=== PATIENT | female | born 2005 | race Caucasian/White ===

== ENCOUNTER 2024-11-04 00:52 | Emergency (ER) | payer OTHER, SELFPAY ==
--- NOTE | 2024-11-04 | ECG_ITS ---
Test Reason : CHEST TIGHTNESS Blood Pressure : */* mmHG Vent. Rate : 84 BPM Atrial Rate : 84 BPM P-R Int : 138 ms QRS Dur : 74 ms QT Int : 354 ms P-R-T Axes : 50 48 36 degrees QTcB Int : 418 ms Normal sinus rhythm Normal ECG No previous ECGs available Referred By: Generic ED Physician Electronically Signed By: Michael Logan
[2024-11-04 00:57] VITALS: BP 130/85; PULSE 100; O2SAT 98
[2024-11-04 01:00] VITALS: BP 127/82; PULSE 87; RESP 21; TEMP 36.7; O2SAT 100; BMI 27.3
[2024-11-04 01:04] VITALS: BP 127/82; PULSE 87; RESP 21; TEMP 36.7; O2SAT 100
--- OUTSIDE RECORDS SUMMARY | 2024-11-04 01:50 | XMS_ITS | Encounter Summary ---
Author Organization [facility] Address [address] [place] [address] Care Team Providers Care Hide Handler Name Role Phone Liya Oreilly MD Primary Care Provider [phone] [phone] Encounter Details Date Type Department Care Team (Late st Contact Info) Description 12/06/2020 Lab Requisition [facility] [address] [place] [address] Jenae Boucher MD [address] [place] [phone] Contact with and (suspected) exposure to other viral communicable diseases Social History Tobacco Use Types Packs/Day Years Used Date Smoking Tobacco: Never Assessed Comments Unknown Sex and Gender Information Value Date Recorded Sex Assigned at Not on file Legal Sex Female 9:35 PM EDT Gender Identity Female 08/03/2023 10:26 AM EST Sexual Orientation Bisexual 08/03/2023 10 :26 AM EST documented as of this encounter Plan of Treatment Upcoming Encounters Date Type Department Care Team (Late st Contact Info) Description 02/23/2025 9:45 AM EDT Office Visit [facility] [place] [address] [place] [address] Liya Oreilly MD [address] [facility] [address] [place] [address] documented as of this encounter Procedures Procedure Name Priority Date/Time Associated Diagnosis Comments SARS COV-2 (COVID-19) RNA-[facility] ([facility]) Routine 12/06/2020 8:55 PM EDT Contact with and (suspected) exposure to other viral communicable diseases documented in this encounter Results * SARS CoV-2 (COVID-19) [facility] ([facility]) (12/06/2020 8:55 PM EDT) SARS-CoV-2 RNA (COVID-19) Negative Negative 12/07/2020 2:20 AM EDT [facility] Comment: This assay is a Nucleic Acid Amplification Test (NAAT)/RT-PCR or TMA ([employer] System). This is run on the [employer] system. It has been validated for clinical use by the Laboratory (CLIA #: [id number]). It has been granted Emergency Use Authorization by the US FDA. Note that falsely negative results can be due to poor sample quality, suboptimal sample type, low viral load, and viral genome variability. Patient Information: https://www.fda.gov/media/725364/download Provider Information: https://www.fda.gov/media/256450/download Test performance has not been evaluated in asymptomatic patients. Test ordering and result interpretation is at the discretion of the ordering provider. Viral NASOPHARYNGEAL STRUCTURE / Unknown 12/06/2020 8:55 PM EDT 12/06/2020 9:21 PM EDT Jenae Boucher MD MICROBIOLOGY - GENERAL ORDERABL ES Final Result [facility] [address] [place] [address] documented in this encounter Visit Diagnoses Diagnosis Contact with and (suspected) exposure to other viral communicable diseases documented in this encounter Additional Health Concerns Infection Onset Date Last Indicated Resolved Time R/O COVID-19 12/06/2020 12/06/2020 12/07/2020 2:20 AM EDT R/O COVID-19 03/30/2021 03/30/2021 03/31/2021 1:47 AM EDT documented as of this encounter Care Teams Hide Handler Relationship Specialty Start Date End Date Liya Oreilly MD [address] [phone] PCP - General Internal Medicine 06/20/23 documented as of this encounter
--- OUTSIDE RECORDS SUMMARY | 2024-11-04 01:50 | XMS_ITS ---
Author Name [facility] Organization Unknown Results Test Name/Text Value Interpretation Date Range Source CRP SerPl HS-mCnc 0.7mg/dL Normal [id number] 0 - 1 [facility] ESR Bld Qn 16mm/hr Normal [id number] 0 - 20 [facility] T HLA-B27 Ql FC Negative Normal [id number] - [facility] 25(OH)D2+25(OH)D3 SerPl-mCnc 25ng/mL Normal [id number] 20 - 50 [facility] Vit B12 SerPl-mCnc 264pg/mL Normal [id number] 211 - 91 1 [facility] CRP SerPl HS-mCnc 1.1mg/dL Above high normal [id number] 0 - 1 [facility] CK SerPl-cCnc 46U/L Normal [id number] 20 - 215 [facility] ESR Bld Qn 14mm/hr Normal [id number] 0 - 20 [facility] T MARTHA Titr Ser IF Negative Normal [id number] - [facility] cCP Ab Ser IA-aCnc 3 Normal [id number] - [facility] B burgdor.VlsE1+pepC1 0 IgG+IgM Ser Ql IA Negative Normal [id number] - [facility] B burgdor.VlsE1+pepC1 0 Ab Ser IA-aCnc 0.19LI Normal [id number] - [facility] AST/ALT SerPl-cRto 1.1 Normal [id number] - [facility] Glucose SerPl-mCnc 86mg/dL Normal [id number] 70 - 100 [facility] AST SerPl w P-5'-P-cCnc 19U/L Normal [id number] 5 - 37 [facility] Calcium SerPl-mCnc 8.8mg/dL Below low normal [id number] 9 .1 - 10.3 [facility] ALT SerPl w/o P-5'-P-cCnc 18U/L Normal 12 - 78 [facility] Sodium SerPl-sCnc 140mmol/L Normal 136 - 145 [facility] BUN SerPl-mCnc 10mg/dL Normal 8 - 25 [facility] ALP SerPl-cCnc 94U/L Normal 50 - 335 [facility] Globulin Plas-mCnc 3.4g/dL Normal [id number] [facility] HCO3 SerPl-sCnc 24mmol/L Normal 21 - 32 [facility] Creat SerPl-mCnc 0.72mg/dL Normal 0.5 - 1.3 [facility] Anion Gap3 SerPl-sCnc 9 Normal 5 - 18 [facility] BUN/Creat SerPl 13.9 Normal 8 - 25 [facility] Albumin SerPl BCG-mCnc 3.8g/dL Normal 3.4 - 5 [facility] Osmolality SerPl Calc 278mOsm/kg Normal 275 - 295 [facility] Bilirub SerPl-mCnc 0.5mg/dL Normal 0 - 1 [facility] Chloride SerPl-sCnc 107mmol/L Normal 95 - 11 5 [facility] Albumin/Glob SerPl 1.1 Normal [facility] Potassium SerPl-sCnc 3.7mmol/L Normal 3.5 - 5.1 [facility] GFR/BSA.pred SerPlBld XWQ-VAS-JsBWxv 60mL/min/1.73m2 Normal [id number] - [facility] Prot SerPl-mCnc 7.2g/dL Normal [id number] 6.4 - 8.2 [facility] CRP SerPl HS-mCnc 7.8mg/dL Above high normal 0 - 1 [facility] TSH SerPl DL<=0.005 mIU/L-aCnc 0.875uIU/mL Normal 0.358 - 3.74 [facility] Rheumatoid fact Ser Neph-aCnc 10IU/mL Normal [id number] 0 - 14 [facility] ESR Bld Qn 14mm/hr Normal [id number] 0 - 20 [facility] T MCV RBC Auto 87.1fL Normal 80 - 100 [facility] Lymphocytes # Bld Auto 1.67i7482/uL Normal 0.6 - 3.7 [facility] WBC # Bld Auto 10.4g5238/uL Normal 4 - 11 [facility] Monocytes/leuk NFr Bld Auto 6.2% Normal 4 - 12 [facility] Imm Granulocytes/leuk NFr Bld Auto 0.2% Normal 0 - 1 [facility] nRBC # Bld Auto 4s1104/uL Normal 0 - 1 [facility] Platelet # Bld Auto 473b6931/uL Normal 150 - 420 [facility] PMV Bld Auto 9.8fL Normal 8 - 12 [facility] MCH RBC Qn Auto 28.1pg Normal [id number] 27 - 33 [facility] Eosinophil # Bld Auto 0.97a6342/uL Normal 0 - 1 [facility] Neutrophils/leuk NFr Bld Auto 76.2% Above high normal 39 - 72 [facility] Imm Granulocytes # Bld Auto 0.82t8551/uL Normal [id number] 0 - 0.3 [facility] RBC # Bld Auto 4.88M/uL Normal 4 - 6 [facility] Monocytes # Bld Auto 0.97o2541/uL Normal [id number] 0 - 1 [facility] RDW RBC Auto-Rto 12.9% Normal [id number] 11 - 15 [facility] Lymphocytes/leuk NFr Bld Auto 15.1% Below low normal 17 - 50 [facility] Eosinophil/leuk NFr Bld Auto 1.9% Normal 0 - 5 [facility] nRBC/100 WBC Bld Auto-Rto 0% Normal 0 - 1 [facility] Neutrophils # Bld Auto 7.89a1618/uL Above high normal 2 - 7.6 [facility] Hct VFr Bld Auto 42.5% Normal 35 - 45 [facility] BKR WAM BASOPHIL ABSOLUTE COUNT. 0.71o6461/uL Normal 0 - 1 [facility] Hgb Bld-mCnc 13.7g/dL Normal 11.7 - 15.5 [facility] MCHC RBC Auto-mCnc 32.2g/dL Normal 31 - 36 [facility] Basophils/leuk NFr Bld Auto 0.4% Normal 0 - 1.4 [facility] Encounters Encounter Type Encounter Reason Primary Diagnosis Location Date Emergency Abdominal Pain [facility] Care Team Organization Name Specialty Phone Email Start Date End Da te [facility]- Other [facility] 10/08/2024 [facility]- Other [facility] 03/09/2024 [facility] ([facility] 07/30/2021
--- OUTSIDE RECORDS SUMMARY | 2024-11-04 01:50 | XMS_ITS | Encounter Summary ---
Author Organization [facility] and [facility] Address [address] [place] [address] Care Team Providers Care [employer] Science Teacher Name Role Phone Liya Oreilly MD Primary Care Provider [phone] Encounter Details Date Type Department Care Team (Late st Contact Info) Description 04/28/2016 Lab Requisition [facility] [address] [place] [address] Jenae Boucher MD [address] [place] [phone] Acute pharyngitis; Other fatigue; Cough Social History Tobacco Use Types Packs/Day Years [...] AM EDT Office Visit [facility] [place] [address] [place] [address] Liya Oreilly MD [address] [facility] [address] [place] [phone] documented as of this encounter Procedures Procedure Name Priority Date/Time Associated Diagnosis Comments COMPREHENSIVE METABOLIC PANEL Routine 04/28/2016 3:30 PM EDT Acute pharyngitis Other fatigue Cough ZZZEPSTEIN-MORSE HETEROPHILE IGM (GH) Routine 04/28/2016 3:30 PM EDT Acute pharyngitis Other fatigue Cough ZZZEBV PANEL (GH) Routine 04/28/2016 3:3 0 PM EDT Acute pharyngitis Other fatigue Cough HETEROPHILE ANTIBODY (MONOSPOT) (BH GH L LMW Y[facility]) Routine 04/28/2016 3:30 PM EDT Acute pharyngitis Other fatigue Cough CBC WITH AUTO DIFFERENTIAL Routine 04/28/2016 3:30 PM EDT Acute pharyngitis Other fatigue Cough ZZZEPSTEIN-MORSE VIRUS NUCLEAR ANTIGEN ANTIBODY, IGG (GH L) Routine 04/28/2016 3:30 PM EDT Acute pharyngitis Other fatigue Cough MALU-MORSE VIRUS EARLY ANTIGEN ANTIBODY, IGG (GH L LMW Q) Routine 04/28/2016 3:30 PM EDT Acute pharyngitis Other fatigue Cough ZZZEPSTEIN-MORSE VIRUS VCA, IGM (GH L Q) Routine 04/28/2016 3:30 PM EDT Acute pharyngitis Other fatigue Cough ZZZEPSTEIN-MORSE VIRUS VCA, IGG (GH L Q) Routine 04/28/2016 3:30 PM EDT Acute pharyngitis Other fatigue Cough CBC AND DIFFERENTIAL Routine 04/28/2016 3:30 PM EDT Acute pharyngitis Other fatigue Cough COMPREHENSIVE METABOLIC PANEL Routine 04/28/2016 3:30 PM EDT Acute pharyngitis Other fatigue Cough THROAT CULTURE (Q) Routine 04/28/2016 2: 00 PM EDT Acute pharyngitis Other fatigue Cough documented in this encounter Results * Malu-Morse heterophile IgM (GH) (04/28/2016 3:30 PM EDT) Heterophile IgM Units 0.7 <0.8 AI 05/01/2016 1:16 PM EDT [facility] Heterophile IgM Negative Negative 6 1:16 PM EDT [facility] Blood specimen (specimen) 04/28/2016 3:30 PM EDT 04/28/2016 4:41 PM EDT [facility] - 05/01/2016 1:16 PM EDT EBV Interpretation: Less than or Equal 0.8...........NEGATIVE 0.9 - 1.0........................EQUIVOCAL Greater or Equal 1.1.............POSITIVE us Jenae Boucher MD LAB BLOOD ORDERABLES Final Resu lt [address] [address], [facility] [phone] * Malu-Morse virus early antigen antibody, IgG (GH L Q) (04/28/2016 3:30 PM EDT) EBV Early Ag Ab Units 0.6 <0.8 AI AI 05/01/2016 2:43 PM EDT [facility] EBV Early Antigen Antibody, IgG Negative Negative 05/01/2016 2:43 PM EDT [facility] Blood specimen (specimen) 04/28/2016 3:30 PM EDT 04/28/2016 4:41 PM EDT [facility] - 05/01/2016 2:43 PM EDT EBV Interpretation: Less than or Equal 0.8...........NEGATIVE 0.9 - 1.0........................EQUIVOCAL Greater or Equal 1.1.............POSITIVE Jenae Boucher MD LAB BLOOD ORDERABLES Final Resu lt Performing Organization Address [facility] Co de Phone Number [address] [address] [phone] * Malu-Morse virus nuclear antigen antibody, IgG (GH L) (04/28/2016 3:30 PM EDT) [facility] EBV Nuclear Ag Ab Units <0.2 <0.8 AI AI 05/01/2016 2:43 PM EDT [facility] EBV Nuclear Antigen Antibody Negative Negative 05/01/2016 2:43 PM EDT [facility] Blood specimen (specimen) 04/28/2016 3:30 PM EDT 04/28/2016 4:41 PM EDT [facility] - 05/01/2016 2:43 PM EDT EBV Interpretation: Less than or Equal 0.8...........NEGATIVE 0.9 - 1.0........................EQUIVOCAL Greater or Equal 1.1.............POSITIVE Jenae Boucher MD LAB BLOOD ORDERABLES Final Resu lt Performing Organization Address [facility] Co de Phone Number [address] [address] [phone] * (ABNORMAL) Malu-Morse virus VCA, IgM (GH L Q) (04/28/2016 3:30 PM EDT) Pathologist [facility] EBV VCA IgM Positive( A) Negative AI 05/01/2016 1:16 PM EDT [facility] EBV VCA IgM Units 1.4(H) <0.8 AI AI 05/01/2016 1:16 PM EDT [facility] Blood specimen (specimen) 04/28/2016 3:30 PM EDT 04/28/2016 4:41 PM EDT us Jenae Boucher MD LAB BLOOD ORDERABLES Final Resu lt Performing Organization Address [facility] de Phone Number [address] [address], [facility] [phone] * Malu-Morse virus VCA, IgG (GH L Q) (04/28/2016 3:30 PM EDT) EBV VCA IgG Units 0.3 <0.8 AI AI 05/01/2016 2:43 PM EDT [facility] EBV VCA IgG Negative Negative 05/01/2016 2:43 PM EDT [facility] Blood specimen (specimen) 04/28/2016 3:30 PM EDT 04/28/2016 4:41 PM EDT Narrative [facility] - 05/01/2016 2:43 PM EDT EBV Interpretation: Less than or Equal 0.8...........NEGATIVE 0.9 - 1.0........................EQUIVOCAL Greater or Equal 1.1.............POSITIVE us Jenae Boucher MD LAB BLOOD ORDERABLES Final Resu lt Performing Organization Address [facility] de Phone Number [facility] [address] [place] [address], [facility] [phone] * (ABNORMAL) CBC auto differential (04/28/2016 3:30 PM EDT) WBC 7.4 4.5 - 13.5 x1000/uL 04/28/2016 6:08 PM EDT [facility] RBC 4.82 3.90 - 5.03 M/uL 04/28/2016 6:08 PM EDT [facility] Hemoglobin 13.0 10.6 - 13.4 g/dL 04/28/2016 6:08 [address] [facility] Hematocrit 39.3 32.2 - 39.8 % 04/28/2016 6:08 PM [facility] MCV 81.5 74.4 - 87.6 fL 04/28/2016 6:08 PM [facility] MCH 27.0 24.8 - 29.5 pg 04/28/2016 6:08 PM [facility] MCHC 33.1 31.8 - 34.9 g/dL 04/28/2016 6:08 PM [facility] RDW-CV 13.1 12.2 - 14.4 % 04/28/2016 6:08 PM [facility] Platelets 324 199 - 369 x 1000/uL 04/28/2016 6:08 PM [facility] MPV 9.1(L) 9.2 - 11.4 fL 04/28/2016 6:08 PM [facility] Neutrophils 47.1 39.5 - 76.9 % 04/28/2016 6:08 PM [facility] Lymphocytes 42.6 13.1 - 45.2 % 04/28/2016 6:08 PM [facility] Monocytes 4.0 3.3 - 13.4 % 04/28/2016 6:08 PM [facility] Eosinophils 5.5(H) 0.0 - 4.8 % 04/28/2016 6:08 PM [facility] Basophils 0.5 0.0 - 1.0 % 04/28/2016 6:08 PM [facility] Immature Granulocytes 0.3 0 - 2 % 04/28/2016 6:08 PM [facility] ANC (Abs Neutrophil Count) 3.48 2.58 - 6.34 x 1000/uL 04/28/2016 6:08 PM [facility] nRBC 0.0 0.0 - 0.2 /100 WBC 04/28/2016 6:08 PM [facility] Blood specimen (specimen) Venipuncture / Unknown 04/28/2016 3:30 PM EDT 04/28/2016 4:41 PM EDT us Jenae Boucher MD LAB BLOOD ORDERABLES Final Resu lt [facility] [address] [place] [address], [facility] [phone] * (ABNORMAL) Comprehensive metabolic panel (04/28/2016 3:30 PM EDT) Sodium 140 136 - 145 mmol/L 04/28/2016 5:13 PM [facility] Potassium 3.8 3.5 - 5.1 mmol/L 04/28/2016 5:13 PM [facility] Chloride 106 95 - 115 mmol/L 04/28/2016 5:13 PM [facility] CO2 24 21 - 32 mmol/L 04/28/2016 5:13 PM [facility] Anion Gap 10 5 - 18 04/28/2016 5:13 PM [facility] Glucose 89 70 - 100 mg/dL 04/28/2016 5:13 PM [facility] BUN 15 8 - 25 mg/dL 04/28/2016 5:13 PM [facility] Creatinine 0.47(L) 0.50 - 1.30 mg/dL 04/28/2016 5:13 PM [facility] Calcium 9.6 8.4 - 10.3 mg/dL 04/28/2016 5:13 PM [facility] BUN/Creatinine Ratio 31.9(H) 8.0 - 25.0 04/28/2016 5:13 PM [facility] Total Protein 6.7 6.4 - 8.2 g/dL 04/28/2016 5:13 PM [facility] Albumin 3.8 3.4 - 5.0 g/dL 04/28/2016 5:13 PM [facility] Total Bilirubin 0.2 0.0 - 1.0 mg/dL 04/28/2016 5:13 PM [facility] Alkaline Phosphatase 227 50 - 335 U/L 04/28/2016 5:13 PM [facility] Alanine Aminotransferase (ALT) 34 12 - 78 U/L 04/28/2016 5:13 PM [facility] Aspartate Aminotransferase (AST) 19 5 - 37 U/L 04/28/2016 5:13 PM EDT [facility] Globulin 2.9 g/dL 04/28/2016 5:13 PM EDT [facility] A/G Ratio 1.3 04/28/2016 5:13 PM EDT [facility] AST/ALT Ratio 0.6 04/28/2016 5:13 PM EDT [facility] Osmolality Calculation 280 275 - 295 mOsm/kg 04/28/2016 5:13 PM EDT [facility] Blood specimen (specimen) 04/28/2016 3:30 PM EDT 04/28/2016 4:41 PM EDT us Jenae Boucher MD LAB BLOOD ORDERABLES Final Resu lt Performing Organization Address City/[facility]/ZIP Co de Phone Number [facility] [address] [place] [phone], [facility] [phone] * (ABNORMAL) Heterophile antibody (monospot) ([facility] L LMW YH) (04/28/2016 3:30 PM EDT) EBV Heterophile Antibodies (Placer Test) Positive( A) Negative 04/28/2016 6:26 PM EDT [facility] Blood specimen (specimen) 04/28/2016 3:30 PM EDT 04/28/2016 4:41 PM EDT us Jenae Boucher MD LAB BLOOD ORDERABLES Final Resu lt [facility] [address] [place] [phone], [facility] [phone] * Throat culture ([facility] Q YH) (04/28/2016 2:00 PM EDT) Throat Culture No Beta Hemolytic Streptococcus Gp A 04/30/2016 7:33 AM EDT [facility] Specimen from throat (specimen) SPECIMEN FROM THROAT / Unknown 04/28/2016 2:00 PM EDT 04/28/2016 4:39 PM EDT Result Hugh Boucher MD MICROBIOLOGY - GENERAL ORDERABL ES Final Result [facility] [address] [place] [address], [facility] [phone] documented in this encounter Visit Diagnoses Diagnosis Acute pharyngitis Other fatigue Cough documented in this encounter Additional Health Concerns Infection Onset Date Last Indicated Resolved Time R/O COVID-19 08/19/2020 08/19/2020 08/21/2020 10:5 8 PM EST R/O COVID-19 10/21/2020 10/21/2020 10/22/2020 12:2 8 AM EDT R/O COVID-19 11/29/2020 11/29/2020 11/30/2020 3:49 AM EDT R/O COVID-19 12/01/2020 12/01/2020 12/01/2020 11:4 7 PM EDT R/O COVID-19 12/06/2020 12/06/2020 12/07/2020 2:20 AM EDT R/O COVID-19 03/30/2021 03/30/2021 03/31/2021 1:47 AM EDT documented as of this encounter Care Teams [employer] Science Teacher Relationship Specialty Start Date End Date Liya Oreilly MD [address] [facility] [address] [place] [address] PCP - General Internal Medicine 06/20/23 documented as of this encounter
--- OUTSIDE RECORDS SUMMARY | 2024-11-04 01:50 | XMS_ITS | Encounter Summary ---
Author Organization [facility] and [facility] Address [address] [place] [address] Care Team Providers Care [employer] Dealer Name Role Phone Liya Oreilly MD Primary Care Provider [phone] Encounter Details Date Type Department Care Team (Late st Contact Info) Description 11/29/2020 Lab Requisition [facility] [address] [place] [address] Rajesh Hicks MD [address] [address] Contact with and (suspected) exposure to other [...] Description 02/23/2025 9:45 AM EDT Office Visit [facility] [place] [address] [place] [address] Liya Cedillo MD [address] [place] [address] [place] [address] documented as of this encounter Procedures Procedure Name Priority Date/Time Associated Diagnosis Comments SARS COV-2 (COVID-19) RNA-[facility] ([facility] Y) Routine 11/29/2020 9:32 PM EDT Contact with and (suspected) exposure to other viral communicable diseases documented in this encounter Results * SARS CoV-2 (COVID-19) [facility] ([facility] LMW Y) (11/29/2020 9:32 PM EDT) SARS-CoV-2 RNA (COVID-19) Negative Negative 11/30/2020 3:49 AM EDT [facility] Comment: This assay is a Nucleic Acid Amplification Test (NAAT)/RT-PCR or TMA ([employer] System). This is run on the [employer] system. It has been validated for clinical use by the [facility] (CLIA #: [id number]). It has been granted Emergency Use Authorization by the [place] FDA. Note that falsely negative results can be due to poor sample quality, suboptimal sample type, low viral load, and viral genome variability. Patient Information: https://www.fda.gov/media/162177/download Provider Information: https://www.fda.gov/media/156653/download Test performance has not been evaluated in asymptomatic patients. Test ordering and result interpretation is at the discretion of the ordering provider. Viral NASOPHARYNGEAL STRUCTURE / Unknown 11/29/2020 9:32 PM EDT 11/29/2020 9:56 PM EDT us Rajesh Hicks MD MICROBIOLOGY - GENERAL ORDERA BLES Final Result [facility] [address] [place] [address] documented in this encounter Visit Diagnoses Diagnosis Contact with and (suspected) exposure to other viral communicable diseases documented in this encounter Additional Health Concerns Infection Onset Date Last Indicated Resolved Time R/O COVID-19 11/29/2020 11/29/2020 11/30/2020 3:49 AM EDT R/O COVID-19 12/01/2020 12/01/2020 12/01/2020 11:4 7 PM EDT R/O COVID-19 12/06/2020 12/06/2020 12/07/2020 2:20 AM EDT R/O COVID-19 03/30/2021 03/30/2021 03/31/2021 1:47 AM EDT documented as of this encounter Care Teams [employer] Dealer Relationship Specialty Start Date End Date Liya Oreilly MD [address] [address] PCP - General Internal Medicine 06/20/23 documented as of this encounter
--- OUTSIDE RECORDS SUMMARY | 2024-11-04 01:50 | XMS_ITS | Data Portability ---
Author Organization [facility], [facility] Address [address] [place] [id number] Assessment Encounter Date Assessment Date Assessment LastModified by Organization Details LastModified Time 03/19/2024 03/19/2024 Well-woman visit with gynecologic examination. Pap/HPV recommendations discussed. Shared decision making on the subject of cervical cancer screening. Pap not sent. Not available 03/19/2024 14:16:15 06/25/2024 06/25/2024 WBC- 9.54 - discussed with pt. Site marked with skin marker. Tx plan discussed. pt verbalizes understanding and agrees with plan ncondro Not available 06/25/2024 12:33:40 Plan of Treatment Reminders Order Date Submit Date Provider Last Modified By Organization Details Last Modified Time Details Appointments None recorded. Lab CBC w/ auto diff [facility], [address] [place] [address], [address], 12:21:50 Referral None recorded. Procedures None recorded. Surgeries None recorded. Imaging None recorded. Medication Orders Bactrim DS 800 mg-[address] [facility] #[id number], [address] [facility] [address], [place], [address], 12:23:24 Earnestine Fe 08/18 (28) 1 mg-20 mcg (21)/75 mg (7) tablet [facility] #[id number], [address] [facility], [place], [address], 4 14:16:51 Earnestine Fe 08/18 (28) 1 mg-20 mcg (21)/75 mg (7) tablet [facility], [address] [place] [address], [address], 14:29:16 Patient TargetsNo targets recorded. Patient Instructions Encounter Date Encounter Id Patient Instructions Last Modified By Organization Details Last Modified Time 07/28/2022 [id number] Various methods of control discussed. Plan for : Not available 07/28/2022 13:13:53 Hormonal : *Work s by constantly providing a significant amount of progesterone to one's bloodstream -this tricks the brain into thinking that one is , thereby turning off the ovaries and preventing ovulation. The period on the pill or nuvaring is a fake manipulated bleed that one has on the placebo period. - progesterone only methods have significantly less risk of blood clotting in the veins but sometimes less bleeding control - the pill (many different brands, progesterone only available) - nuvaring (vaginal ring in the vagina for 3 weeks, 1 week without) - depo provera injections every 3 months (this is progesterone only, not easily reversible, requires nurses visit every 3 months for injection) - nexplanon implant every 3 years (progesterone only, easily reversible but requires insertion and removal procedures that carry small risks of migration, infection, bruising, sometimes not easy to remove) IUD : *The IUD works mainly by killing sperm. One continues to ovulate. - The kind that has progesterone coated on it lessens the flow and duration of natural periods. Types are Mirena, kyleena, rhea, and liletta. They do NOT release the progesterone into the bloodstream. However there is a small percentage of women in whom the progesterone may leak a little into the bloodstream and give them side effects such as bloating, weight gain, acne, mood changes,.... - The kind with zero hormone on it, Paragard, can make periods heavier, but carries no additional hormone side effects at all Barrier: - condoms, protect against sexually transmitted infections - diaphragm, a little better than using nothing, condoms preferred, do NOT protect against sexually transmitted infections Other: -spermicide, VCF, not reliable methods of contraception, virtually no protection Permanent: -tubal ligation/coagulati on (cutting/burning fallopian tubes), bilateral salpingectomies, (removing fallopian tubes) -vasectomy Various methods of control discussed. 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 Please be advised that test results may be available to you before they are available for review by your provider. Office notes and patient care summaries will also be available to you. If you have any questions regarding any notes or results please call the office or reach out to your provider via the portal. Not available 03/19/2024 07:24:14 Monthly self breast exam is encouraged. Condom use is encouraged. control preference noted if applicable. Not available 03/19/2024 07:24:14 06/25/2024 [id number] rest leg apply warm compresses 20 minutes at a time every few hours. Take antibiotic as prescribed - take with food. take probiotics ( culturelle) while taking antibiotics. Do not take probiotic within 2-3 hours of the antibiotic. Take Tylenol as needed for pain. To ER if increased redness or fever develops pt verbalizes understanding and agrees with plan ncondro Not available 06/25/2024 12:24:36 Reason for Referral None Reported. Results Created Date Observation Date Name Description Value Unit Range Abnormal Flag Note LastModifiedBy Organization Detail LastModifiedTime 06/25/20 24 06/25/2024 CBC-S white blood cells 9.54 10^3/ uL 3.50 - 10.60 normal Not Available [facility] [address] [place], [address], 06/25/2024 12:21:49 06/25/2006/25/2024 CBC-S red blood cells 4.74 10^6/ uL 3.87 - 5.15 normal Not Available [facility] [address] [place] [address], [address], 06/25/2024 12:21:49 06/25/2006/25/2024 CBC-S hemoglobin 13.7 g/dL 11.1 - 15.0 normal Not Available [facility] [address] [place] [address], [address], 06/25/2024 12:21:49 06/25/2006/25/2024 CBC-S hematocrit 41.3 % 34.1 - 44.7 normal Not Available [facility] [address] [place] [address], [address], 06/25/2024 12:21:49 06/25/2006/25/2024 CBC-S MCH 28.9 pg 23.5 - 32.8 normal Not Available [facility] [address] [place] [address], [address], 06/25/2024 12:21:49 06/25/2006/25/2024 CBC-S MCHC 33.2 g/dL 31.4 - 35.2 normal Not Available [facility] [address] [place] [address], [address], 06/25/2024 12:21:49 06/25/2006/25/2024 CBC-S MCV 87.1 fL 76.0 - 98.0 normal Not Available [facility] [address] [place] [address], [address], 06/25/2024 12:21:49 06/25/20 24 06/25/2024 CBC-S RDW-CV 12.6 % 12.1 - 15.9 normal Not Available [facility] [address] [place], [address], 06/25/2024 12:21:49 06/25/2006/25/2024 CBC-S RDW-SD 41.5 fL 36.8 - 55.7 normal Not Available [facility] [address] [place] [address], [address], 06/25/2024 12:21:49 06/25/2006/25/2024 CBC-S platelet count 280 10^3/ uL 140 - 400 normal Not Available [facility] [address] [place] [address], [address], 06/25/2024 12:21:49 06/25/2006/25/2024 CBC-S MPV 9.1 fL 8.9 - 12.5 normal Not Available [facility] [address] [place] [address], [address], 06/25/2024 12:21:49 06/25/2006/25/2024 CBC-S neutro-segs % 71.2 % not estab. normal Not Available [facility] [address] [place] [address], [address], 06/25/2024 12:21:49 06/25/2006/25/2024 CBC-S lymphocytes % 21.2 % not estab. normal Not Available [facility] [address] [place] [address], [address], 06/25/2024 12:21:49 06/25/2006/25/2024 CBC-S monocytes % 5.1 % not estab. normal Not Available [facility] [address] [place] [address], [address], 06/25/2024 12:21:49 06/25/20 24 06/25/2024 CBC-S eosinophils % 2.2 % not estab. normal Not Available [facility] [address] [place] [address], [address], 06/25/2024 12:21:49 06/25/2006/25/2024 CBC-S basophils % 0.2 % not estab. normal Not Available [facility] [address] [place] [address], [address], 06/25/2024 12:21:49 06/25/2006/25/2024 CBC-S neutrophil, absolute 6.8 10^3/ uL 1.7 - 6.4 high Not Available [facility] [address] [place] [address], [address], 06/25/2024 12:21:49 06/25/2006/25/2024 CBC-S lymphocytes, absolute 2.0 10^3/ uL 0.9 - 3.2 normal Not Available [facility] [address] [place] [address], [address], 06/25/2024 12:21:49 06/25/2006/25/2024 CBC-S monocytes, absolute 0.5 10^3/ uL 0.3 - 0.9 normal Not Available [facility] [address] [place] [address], [address], 06/25/2024 12:21:49 06/25/2006/25/2024 CBC-S eosinophils, absolute 0.2 10^3/ uL 0.0 - 0.6 normal Not Available [facility] [address] [place] [address], [address], 06/25/2024 12:21:49 06/25/2006/25/2024 CBC-S basophils, absolute 0.0 10^3/ uL 0.0 - 0.1 normal Not Available [facility] [address] [place] [address], [address], 06/25/2024 12:21:49 Result Notes None recorded. Problems Name Problem SNOMED Code Status Onset Date Resolution Date Notes Provider Name and Address Organization Details Recorded Time Dysmenorrhea 621931577 Active 2020 Descri ption: DYSMEN ORRHEA , UNSPEC IFIED; Stop Date: [address] [facility] 12:48:36 Problem Notes None recorded. Medical Equipment None Reported. Allergies No known drug allergies Medications Name Sig Start Date Stop Date Status Note LastModified by Organization Details LastModified Time ibuprofen 800 mg tablet TAKE 1 TAB BY MOUTH EVERY 8 HOURS NEEDED FOR PAIN 03/19 completed Not Available Not Available Not Available meloxicam 15 mg tablet TAKE 1 TABLET BY MOUTH EVERY DAY WITH FOOD 03/19 completed Not Available Not Available Not Available sertraline 100 mg tablet TAKE 1 TABLET BY MOUTH EVERY DAY active Not Available Not Available No t Available sulfamethoxa zole 800 mg-trimethop rim 160 mg tablet Take 1 tablet every 12 hours by oral route after meal(s) for 7 days. active Not Available Not Available No t Available methocarbamo l 750 mg tablet 03/19 completed Not Available Not Available Not Available cephalexin 500 mg capsule TAKE 1 CAPSULE (500 MG) BY MOUTH EVERY 6 (SIX) HOURS FOR 7 DAYS. active Not Available Not Available No t Available bupropion HCl 75 mg tablet TAKE 1 TABLET BY MOUTH IN THE MORNING active Not Available Not Available No t Available sertraline 25 mg tablet TAKE 1 TABLET BY MOUTH EVERY DAY active Not Available Not Available No t Available oxycodone 5 mg tablet 03/19 completed Not Available Not Available Not Available 08/18 (28) 1 mg-20 mcg (21)/75 mg (7) tablet TAKE 1 TABLET BY MOUTH EVERY DAY active Not Available Not Available No t Available Vitals Date Recorded Body height Body mass index (BMI) Percentile per age and sex Body mass index (BMI) Body weight Systolic blood pressure Diastolic blood pressure Provider Name and Address Organization Details Last Updated DateTime 4 170.18 cm 81 % 25.4 kg/m2 67119.9 6 g 108 mm[Hg] 64 mm[Hg] Ramy Vasquez MD [address] [place] [address],[address], [place], [address], [facility] 4 14:05:09 Date Recorded Body height Heart rate Oxygen saturation Oxygen saturation in Arterial blood by Pulse oximetry Body temperature Respiratory rate Systolic blood pressure Diastolic blood pressure Provider Name and Address Organization Details Last Updated DateTime 4 170.18 cm 104 /min 98 % 98 % 97.6 [degF] 16 /min 110 mm[Hg] 84 mm[Hg] Hanna Ponce [facility] 4 11:42:33 Social History Question Answer Notes LastModified by [employer] Details LastModified Time Tobacco Smoking Status Never Smoker Not Available [facility] 05/31/2021 20:37:33 Do You Have An Advance Directive? No Information not available 03/19/2024 What Is Your Level Of Alcohol Consumption? None Information not available 03/19/2024 Do You Or Have You Ever Used E-cigarettes Or Vape? Never Used Electronic Cigarettes Information not available 03/19/2024 What Was The Date Of Your Most Recent Tobacco Screening? 10/21/2020 Information not available 05/31/2021 Are You Sexually Active? No Information not available 05/31/2021 Do You Use Any Illicit Or Recreational Drugs? No Information not available 03/19/2024 Has Tobacco Cessation Counseling Been Provided? No Information not available 05/31/2021 Do You Or Have You Ever Used Any Other Forms Of Tobacco Or Nicotine? No Information not available 03/19/2024 Sex: Unknown Functional Status Question Answer Note LastModified by [employer] Details LastModified Time What is your exercise level? Occasional Information not available 03/19/2024 Mental Status None recorded. Family History Relationship Description Onset Age of this Age Resolved Age Notes LastModified by Organization Details LastModified Time Father No current problems or disability Not available 13:17:01 Mother No current problems or disability Not available 13:17:01 Notes:General Comments: fath er with parkinsons Medical History Condition Response Coronary Artery Disease N High Blood Pressure N Tonsil Infections N Blood disorders N Emphysema N heart arrhythmia N COPD N Congenital Heart Disease N Dermatologic Disorders N Pneumonia N Incontinence N Gestational Diabetes N Edema N Spine Problems N Gastrointestinal Disease N Paralysis N Obstructive Sleep Apnea N Anxiety Disorder Y Muscle, Joint, or Bone Problems N Obesity N Infertility N Mental Disorder N Acid Reflux (GERD) N Hematuria N Cancer N Stroke N Seasonal allergies N Neurologic/Epilepsy N Crohn's Disease N Neck Injury N Headaches N Abdominal Aortic Aneurysm Repair N Kidney Disease N Abnormal Bleeding N Heart Problems N sports induced asthma N Heart Conditions N Hyperparathyroidism N Kidney or Bladder Problems N Brain Tumors N Carpel Tunnel N Joint Pain N Eating Disorder N Urinary Problems N Constipation N Brain Injury N Abdominal Pain N Art (IVF or FET) N Rhinitis N Prostate Hypertrophy N Hepatitis/Liver Disease N Food Allergy N Cerebral Palsy N AIDS/HIV N Nasal polyps N Asthma N Amputation N Trauma/Violence N Thyroid Disorder N Sleep Disorder N GERD/Reflux N Cirrhosis N Pulmonary Embolism N Allergies (Food, seasonal, environmental ) N Anxiety/Depression Y Thyroid Disease N Colon Cancer N Breast Cancer N Drug/Latex Allergies/Reactions N Hospital Admission Other Than N Lung Disease N Breast Problem N Clotting Disorder N Diverticulitis/Diverticulosis N Spine/Back Problems N Hematologic disorders N Orthopedic Problems N Anesthesia Complications N History of STI N Deep Vein Thrombosis N Polycystic ovary syndrome N Spasticity N Orthotics N Hearing Loss N Head Injury/Concussion N Serious Illness or Injuries N Abnormal Pap Smear N Vitamin D Deficiency N History of Blood Thinners N Endometriosis N Bladder or Kidney Problems N Alcohol Overuse/Alcohol Abuse N High Cholesterol N Nervous System Disorder N Organ Transplant N Dialysis N Allergies/Hayfever N Dyslipidemia N Chronic Obstructive Pulmonary Disease N Thyroid Problems N GI Problems N Osteoporosis/Osteopenia N Anemia N Lyme disease N Multiple Sclerosis N Mental Illness N Psychiatric Illness N Neurological Problems N Anticoagulation therapy N Diabetes N Pulmonary (TB, Asthma) N Bedwetting N Heart Murmur N Amnesia N Valvular Heart Disease N Kidney Failure N Eczema N Abuse/Domestic Violence N Epilepsy/Seizures N Sleep Apnea N Mental Problems N Warfarin Management N Depression/ depression N Bronchitis N Heart Disease N Tourette Syndrome N Pre-Eclampsia N Hypertension N Osteoporosis N Gynecological History Statement/Question Response Date of LMP 02/28/2024 Frequency of Cycle (Q days) 28 Sexually Active? No STIs/STDs N HPV Vaccine Y Duration of Flow (days) Age at Menarche 11 Current Control Method BCPs Obstetrics History GPAL:G 0 P 0 0 0 0 Immunizations Vaccine Type Date Status Note Provider Nam e and Address Organization Details Recorded Time Influenza, split virus, quadrivalent, preservative 7 completed Ramy Vasquez MD [address] [place] [address] [address], [place], [address], [facility] 03/19/2024 14:05:22 Influenza, split virus, quadrivalent, preservative 0 completed Ramy Vasquez MD [address] [place] [address] [address], [place], [address], [facility] 03/19/2024 14:05:22 Hib, unspecified formulation 5 completed Ramy Vasquez MD [address] [place] [address] [address], [place], [address], [facility] 03/19/2024 14:05:22 Hib, unspecified formulation 6 completed Ramy Vasquez MD [address] [place] [address] [address], [place], [address], [facility] 03/19/2024 14:05:22 Hib, unspecified formulation 5 completed Ramy Vasquez MD [address] [place] [address] [address], [place], [address], [facility] 03/19/2024 14:05:22 Hib, unspecified formulation 5 completed Ramy Vasquez MD [address] [place] [address] [address], [place], [address], [facility] 03/19/2024 14:05:22 meningococcal B, recombinant 9 completed MD Lisbeth Ferguson [address], [place], [address], [facility] 03/19/2024 14:05:22 meningococcal B, recombinant 0 completed MD Lisbeth Ferguson [address] [address], [place], [address], [facility] 03/19/2024 14:05:22 HPV9 6 completed Ramy Vasquez MD [address], [place], [address], [facility] 03/19/2024 14:05:22 HPV9 7 completed Ramy Vasquez MD [address], [place], [address], [facility] 03/19/2024 14:05:22 IPV 5 completed Ramy Vasquez MD [address], [place], [address], [facility] 03/19/2024 14:05:22 IPV 5 completed Ramy Vasquez MD [address], [place], [address], [facility] 03/19/2024 14:05:22 IPV 6 completed Ramy Vasquez MD [address], [place], [address], [facility] 03/19/2024 14:05:22 IPV 0 completed Ramy Vasquez MD [address], [place], [address], [facility] 03/19/2024 14:05:22 MMR 6 completed Ramy Vasquez MD [address], [place], [address], [facility] 03/19/2024 14:05:22 MMRV 0 completed Ramy Vasquez MD [address], [place], [address], [facility] 03/19/2024 14:05:22 COVID-19, mRNA, LNP-S, PF, 30 mcg/0.3 mL dose 1 completed Ramy Vasquez MD [address] [facility], [place], [address], [facility] 03/19/2024 14:05:22 pneumococcal conjugate PCV 7 6 completed Ramy Vasquez MD [address] [facility], [place], [address], [facility] 03/19/2024 14:05:22 pneumococcal conjugate PCV 7 5 completed Ramy Vasquez MD [address] [facility], [place], [address], [facility] 03/19/2024 14:05:22 pneumococcal conjugate PCV 7 5 completed Ramy Vasquez MD [address] [facility], [place], [address], [facility] 03/19/2024 14:05:22 pneumococcal conjugate PCV 7 5 completed Ramy Vasquez MD [address] [facility], [place], [address], [facility] 03/19/2024 14:05:22 influenza, unspecified formulation 5 completed Ramy Vasquez MD [address] [facility], [place], [address], [facility] 03/19/2024 14:05:22 Tdap 1 completed Ramy Vasquez MD [address], [place], [address], [facility] 03/19/2024 14:05:22 Tdap 6 completed Ramy Vasquez MD [address], [place], [address], [facility] 03/19/2024 14:05:22 Pneumococcal conjugate PCV 13 5 completed Ramy Vasquez MD [address] [facility], [place], [address], [facility] 03/19/2024 14:05:22 Hep B, unspecified formulation 6 completed Ramy Vasquez MD [address] [facility], [place], [address], [facility] 03/19/2024 14:05:22 Hep B, unspecified formulation 6 completed Ramy Vasquez MD [address] [facility], [place], [address], [facility] 03/19/2024 14:05:22 Hep B, unspecified formulation 5 completed Ramy Vasquez MD [address] [place], [place] [address], [place], [address], [facility] 03/19/2024 14:05:22 Hep A, ped/adol, 2 dose 8 completed Ramy Vasquez MD [address] [facility], [place], [address], [facility] 03/19/2024 14:05:22 Hep A, ped/adol, 2 dose 7 completed Ramy Vasquez MD [address] [facility], [place], [address], [facility] 03/19/2024 14:05:22 meningococcal MCV4P 1 completed Ramy Vasquez MD [address] [facility], [place], [address], [facility] 03/19/2024 14:05:22 meningococcal MCV4P 6 completed Ramy Vasquez MD [address] [facility], [place], [address], [facility] 03/19/2024 14:05:22 DTaP 0 completed Ramy Vasquez MD [address] [facility], [place], [address], [facility] 03/19/2024 14:05:22 DTaP, unspecified formulation 5 completed Ramy Vasquez MD [address] [facility], [place], [address], [facility] 03/19/2024 14:05:22 DTaP, unspecified formulation 6 completed Ramy Vasquez MD [address] [facility], [place], [address], [facility] 03/19/2024 14:05:22 DTaP, unspecified formulation 5 completed Ramy Vasquez MD [address] [place], [place] [address], [place], [address], [facility] 03/19/2024 14:05:22 DTaP, unspecified formulation 5 completed Ramy Vasquez MD [address] [place], [place] [address], [place], [address], [facility] 03/19/2024 14:05:22 Influenza, split virus, quadrivalent, PF 0 completed Ramy Vasquez MD [address] [place], [place] [address], [place], [address], [facility] 03/19/2024 14:05:22 Past Encounters Encounter ID Performer Location Encounter Start Date Encounter Closed Date Diagnosis/Indication Diagnosis SNOMED-CT Code Diagnosis ICD10 Code Diagnosis Note [id number] MD TOM Ferguson_[place] [address] [place] [address] 07/28/2022 13:28:48 07/28/2022 14:30:11 Renewal of prescription [id number] Z76.0 Gynecologi c examination 78178625 Z01.419 [id number] MD TOM Ferguson_[place] [address] [place] [address] 03/19/2024 13:55:40 03/19/2024 14:24:29 Gynecologic examination 90477111 Z01.419 never SA, pt will find out what her mom's clotting issue was before we consider any refills Renewal of prescription 703639209 Z76.0 [id number] Shital Ma, [employer] [facility] [place] [address] 06/25/2024 10:57:30 06/25/2024 12:34:46 Infection of skin and/or subcutaneous tissue 67323123 L08.9 Health Concerns Section Related Observation LastModified by Organization Detai ls LastModified Time None Recorded Concern Status LastModified by Organization Details LastModified Time None Recorded Advance Directives Directive N: Payers Encounter Date Sequence Insurance Name Policy Number Policy Pate Covered Member ID Pate Member ID Guarantor Name 07/28/2022 1 [employer] [facility] Anil Lind [id number] Anil Lind 03/19/2024 1 [employer] - OPEN ACCESS PLUS [id number] Anil V Lidn [id number] Anil Lind 06/25/2024 1 [employer] - OPEN ACCESS PLUS [id number] Anil V Lind [id number] Anil Lind Notes Date Note Type Note Provider Name a nj Address Organization Details Recorded Time 07/28/2022 text/html Patient present for discussion of control method.Current method of control: {{ none condoms OC P* nuvaring patch depo-provera nexpl anon Mirena Kyleen a Rhea Paragard B TL Salpingectomies hysterectomy vase ctomy}}For annual exam, no abd/pelvic pains, no abn vag bleeding or DC, Nl . + constipation Ramy Vasquez MD [address] [place] [address],[address], [place], [phone], [facility] [place] 07/28/2022 14:30:02 03/19/2024 text/html Annual GYNReport ed bypatient.Notes:Pt is without any problems, no abd/pelvic pains, no abn vag bleeding or dc, Nl GI and GUMother has a ? clotting disorder that led to multiple miscarriages according to Anil but not sure of the dx. Patient presents for annual exam. Medical/Surgical/F amily/Social/Head Operator/M edications/Allergi es history reviewed. Periods: {{ regular* irregu lar none}} Breast issues: {{ no* pain lump}} Medication cost concerns: {{ no yes* n/a}} Ramy Vasquez MD [address] [facility],[address], [place], [phone], [facility] 03/19/2024 14:24:20 06/25/2024 text/html pt reports ingro wn hair right lower leg 2 days ago. Reports redness, swelling and pain beginning yesterday. CHICO Hugo [address] [facility],[address], [place], [phone], [facility] 06/25/2024 12:34:11 OBGyn Episode No OBEpisode recorded.
--- OUTSIDE RECORDS SUMMARY | 2024-11-04 01:50 | XMS_ITS | Encounter Summary ---
Author Organization [facility] and [facility] Address [address] [place] [address] Care Team Providers Care Glass Frame Fitter Name Role Phone Liya Oreilly MD Primary Care Provider [phone] Encounter Details Date Type Department Care Team (Late st Contact Info) Description 02/23/2017 Lab Requisition [facility] [address] [place] [address] Katya Williamson MD [address] [phone] Encounter for vitamin deficiency screening; Encounter for screening for lipoid disorders Social History Tobacco Use Types Packs/Day Years [...] AM EDT Office Visit [facility] [address] [place] [address] [place] [address] Liya Oreilly MD [address] [facility] [address] [place] [address] documented as of this encounter Procedures Procedure Name Priority Date/Time Associated Diagnosis Comments ZZZVITAMIN D, 25-HYDROXY, TOTAL (L) Routine 02/23/2017 7:15 PM EDT Encounter for vitamin deficiency screening [ICD-10-CM] Encounter for screening for lipoid disorders LIPID PANEL Routine 02/23/2017 7:15 PM EDT Encounter for vitamin deficiency screening [ICD-10-CM] Encounter for screening for lipoid disorders documented in this encounter Results * Vitamin D, 25-hydroxy, total (GH L) (02/23/2017 7:15 PM EDT) Vitamin D 25-Hydroxy Total 35 20 - 50 ng/mL 02/24/2017 11:06 AM EDT [facility] Blood specimen (specimen) 02/23/2017 7:15 PM EDT 02/23/2017 7:51 PM EDT us Katya Williamson MD LAB BLOOD ORDERABLES Final Result Performing Organization Address City/State/[facility] Co de Phone Number [facility] [address] [place] [phone], [facility] [phone] * (ABNORMAL) Lipid panel (02/23/2017 7:15 PM EDT) Cholesterol 188(H) 125 - 175 mg/dL 02/23/2017 9:08 PM EDT [facility] HDL 76 40 - 90 mg/dL 02/23/2017 9:08 PM EDT [facility] Triglycerides 54 30 - 200 mg/dL 02/23/2017 9:08 PM T [facility] Chol/HDL Ratio 2.5 1.0 - 3.9 02/23/2017 9:08 PM EDT [facility] LDL Calculated 101 20 - 130 mg/dL 02/23/2017 9:08 PM EDT [facility] Blood specimen (specimen) 02/23/2017 7:15 PM EDT 02/23/2017 7:51 PM EDT us Katya Williamson MD LAB BLOOD ORDERABLES Final Result [facility] [address] [place] [phone], [facility] [phone] documented in this encounter Visit Diagnoses Diagnosis Encounter for vitamin deficiency screening Screening for other and unspecified endocrine, nutritional, metabolic, and immunity disorders Encounter for screening for lipoid disorders Screening for lipoid disorders documented in this encounter Additional Health Concerns [...] documented as of this encounter Care Teams Glass Frame Fitter Relationship Specialty Start Date End Date Liya Oreilly MD [address] [facility] [address] [place] [phone] PCP - General Internal Medicine 06/20/23 documented as of this encounter
--- OUTSIDE RECORDS SUMMARY | 2024-11-04 01:50 | XMS_ITS | Encounter Summary ---
Author Organization [facility] and [facility] Address [address] [place] [address] Care Team Providers Care Court Interpreter Name Role Phone Liya Oreilly MD Primary Care Provider [phone] Encounter Details Date Type Department Care Team (Late st Contact Info) Description 03/30/2021 Lab Requisition [facility] [address] [place] [address] Lindsay Dias MD [address] [phone] Contact with and (suspected) exposure to covid-19 Social History Tobacco Use Types Packs/Day Years [...] Description 02/23/2025 9:45 AM EDT Office Visit [facility] Internal Medicine [place] [address] [place] [address] Liya Cedillo MD [address] [place] [address] [place] [address] documented as of this encounter Procedures Procedure Name Priority Date/Time Associated Diagnosis Comments SARS COV-2 (COVID-19) RNA-[facility] ([facility]) Routine 03/30/2021 8:21 PM EDT Contact with and (suspected) exposure to covid-19 documented in this encounter Results * SARS CoV-2 (COVID-19) [facility] ([facility]) (03/30/2021 8:21 PM EDT) SARS-CoV-2 RNA (COVID-19) Negative Negative 03/31/2021 1:47 AM EDT [facility] DEPARTMENT OF PATHOLOGY Comment: This assay is a Nucleic Acid Amplification Test (NAAT)/RT-PCR or TMA (Evrenther System). This is run on the [employer] system. It has been validated for clinical use by the [facility] (CLIA #: [id number]). It has been granted Emergency Use Authorization by the [place] FDA. Note that falsely negative results can be due to poor sample quality, suboptimal sample type, low viral load, and viral genome variability. Patient Information: https://www.fda.gov/media/668018/download Provider Information: https://www.fda.gov/media/368887/download Test performance has not been evaluated in asymptomatic patients. Test ordering and result interpretation is at the discretion of the ordering provider. Viral NASOPHARYNGEAL STRUCTURE / Unknown 03/30/2021 8:21 PM EDT 03/30/2021 8:57 PM EDT Lindsay Dias MD MICROBIOLOGY - GENERAL TANVI KING Final Result [facility] DEPARTMENT OF PATHOLOGY [address] [place] [address] documented in this encounter Visit Diagnoses Diagnosis Contact with and (suspected) exposure to covid-19 documented in this encounter Additional Health Concerns Infection Onset Date Last Indicated Resolved Time R/O COVID-19 03/30/2021 03/30/2021 03/31/2021 1:47 AM EDT documented as of this encounter Care Teams Court Interpreter Relationship Specialty Start Date End Date Liya Oreilly MD [address] [phone] PCP - General Internal Medicine 06/20/23 documented as of this encounter
--- OUTSIDE RECORDS SUMMARY | 2024-11-04 01:50 | XMS_ITS | Encounter Summary ---
Author Organization [facility] and [facility] Address [address] [place] [address] Care Team Providers Care Cartographic Technician Name Role Phone Liya Oreilly MD Primary Care Provider [phone] Encounter Details Date Type Department Care Team (Latest Contact Info) Description 04/13/2014 Transcribed Orders [facility] [address] [place] [address] Jenae Boucher MD [address] [place] [phone] Acute pharyngitis (Primary Dx) Social History Tobacco Use Types Packs/Day Years [...] AM EDT Office Visit [facility] [address] [place] [address] [place] [address] Liya Oreilly MD [address] [place] [address] documented as of this encounter Results * Throat culture (BH GH Q YH) (04/13/2014 9:40 PM EDT) Throat Culture NEGATIVE FOR BETA STREP [facility] Culture SPECIMEN FROM THROAT / Unknown 04/13/2014 9:40 PM EDT Comment:THROAT Narrative [facility] - 04/15/2014 7:35 AM EDT Perf by: [facility] , [address] [place] [phone] ??(CLIA# [id number], [id number], [place] PFI:[id number]) Jenae Boucher MD MICROBIOLOGY - GENERAL ORDERABL ES Final Result [facility] [address] [place] [phone] documented in this encounter Visit Diagnoses Diagnosis Acute pharyngitis- Primary Acute pharyngitis documented in this encounter Additional Health Concerns [...] documented as of this encounter Care Teams Cartographic Technician Relationship Specialty Start Date End Date Liya Oreilly MD [address] [facility] [address] [place] [phone] PCP - General Internal Medicine 06/20/23 documented as of this encounter
--- OUTSIDE RECORDS SUMMARY | 2024-11-04 01:50 | XMS_ITS | Clinical Summary ---
Author Organization [address] Address [address] [place] [address] Phone Care Team Providers Care Sales Route Driver Helper Name Role Phone Liya Oreilly MD Primary Care Provider [phone] Allergies No known active allergies Medications sertraline (ZOLOFT) 100 mg tablet Take 1 tablet (100 mg total) by mouth daily. 05/22/2023 Active sertraline (ZOLOFT) 25 mg tablet Take 1 tablet (25 mg total) by mouth daily. Active LOESTRIN FE 08/18, 28-DAY, 1 mg-20 mcg (21)/75 mg (7) per tablet Take 1 tablet by mouth daily. 06/11/2023 Active busPIRone (BUSPAR) 15 mg tablet Take 1 tablet (15 mg total) by mouth 2 (two) times daily. Active Active Problems No known active problems Immunizations Name Administration Dates Next Due DTaP 04/14/2010,11/29/2005,03/21/2005 [id number] 2004,2004 HPV9 02/23/2017,02/02/2016 Hep A, ped/adol, 2 dose 04/14/2008,05/16/2007 Hep B, adolescent or pediatric 04/10/2006,2005,06/06/2005 Hib (PRP-T) 11/29/2005,03/21/2005 Influenza, injectable, quad with preservative 05/16/2010,05/16/2007 Influenza, injectable, quadr ivalent, preservative free 07/02/2020 MMRV 04/14/2010,11/29/2005 Meningococcal B, recombinant (Trumenba) 03/08/2020,03/04/2019 Meningococcal MCV4P - Menactra 01/24/2021,2015 Pneumococcal conjugate PCV 13 08/29/2005 ,03/21/2005,2004,10/09 Polio (IPV) 04/14/2010,04/10/2006 Tdap 01/24/2021,02/02/2016 Family History Medical History Relation Name Comments Intellectual Disability Brother Sabas Olearypherd Vision loss Mother Lety Olearypherd Depression Sister 1 Maritza Gutierrez Mental health disorder Sister 1 Maritza Gutierrez Intellectual Disability Sister 2 Shayy Gutierrez Vision loss Sister 2 [place] Gutierrez Relation Name Status Comments Brother Sabas Olearypherd Mother Lety Gutierrez Sister 1 Maritza Gutierrez Sister 2 Shayy Gutierrez Social History Tobacco Use Types Packs/Day Years Used Date Smoking Tobacco: Never Smokeless Tobacco: Never Tobacco Cessation:Counseling Given: Not Answered Alcohol Use Standard Drinks/Week Comments Never 0 (1 standard drink = 0.6 oz pur e alcohol) PHQ-2 Answer Date Recorded PHQ-2 Total Score 0 02/05/2024 Comments Unknown Sex and Gender Information Value Date Recorded Sex Assigned at Not on file Legal Sex Female 9:35 PM EDT Gender Identity Female 08/03/2023 10:26 AM EST Sexual Orientation Bisexual 08/03/2023 10 :26 AM EST Last Filed Vital Signs Vital Sign Reading Time Taken Comments Blood Pressure 116/78 12/28/2023 10:10 AM EDT Pulse 101 12/28/2023 10:10 AM EDT Temperature 36.7 ??C (98.1 ??F) 12/28/2023 10:10 AM E DT Respiratory Rate 20 07/30/2021 1:30 PM EST Oxygen Saturation 98% 12/28/2023 10:10 AM EDT Inhaled Oxygen Concentration - - Weight 73.5 kg (162 lb) 07/18/2023 11:31 AM EST Height 168.9 cm (5' 6.5 ) 12/28/2023 10:10 AM ED T Body Mass Index 25.72 07/18/2023 11:31 AM EST Plan of Treatment Upcoming Encounters Date Type Department Care Team (Late st Contact Info) Description 02/23/2025 9:45 AM EDT Office Visit [facility] [place] [address] [place], [place] [phone] Liya Oreilly MD [address] [facility] [address] [place] [address] Health Maintenance Due Date Last Done Comments HIV screening 2017 Chlamydia screening 2021 Hepatitis C screening 2022 Covid-19 vaccine series ( season) 2024 Influenza Vaccine Pediatric (Season Ended) 2025 07/02/2020, 05/16/2010, 05/16/2007 DTaP/TDaP Vaccines (8 - Td or Tdap) 01/24/2031 01/24/2021, 02/02/2016, 04/14/2010, Additional history exists Tetanus adult (Td q 10,TDAP once) 01/24/2031 01/24/2021, 02/02/2016, 04/14/2010, Additional history exists RSV Immunization (1 - 1-dose 75+ series) 2079 Pneumococcal Vaccine (2 - 49 years) Completed 08/29/2005, 03/21/2005, 2004, Additional history exists HIB Vaccines Completed 11/29/2005, 02/28, 2004, Additional history exists Hepatitis B vaccine series Completed 04/10, 08/29/2005, 06/06/2005 Hepatitis A Vaccines Completed 04/14/2008, 05/16/20 07 IPV Vaccines Completed 04/14/2010, 03/30, 2004, Additional history exists MMR Vaccines Completed 04/14/2010, 11/29/2005 Varicella Vaccines Completed 04/14/2010, 11/29/2005 HPV vaccine series Completed 02/23/2017, 02/02/2016 Meningococcal Vaccine Completed 01/24/2021, 016 Rotavirus Vaccines Aged Out No longer eligible based on patient's age to complete this topic Insurance [employer] [id number] [address] [id number] [address] [id number] [place] [id number] Care Teams Sales Route Driver Helper Relationship Specialty Start Date End Date Liya Oreilly MD [address] [facility] 100 [place] [address] PCP - General Internal Medicine 06/20/23
--- OUTSIDE RECORDS SUMMARY | 2024-11-04 01:50 | XMS_ITS | Encounter Summary ---
Author Organization [facility] Address [address] [place] [address] Care Team Providers Care Network Relay Tester Name Role Phone Liya Oreilly MD Primary Care Provider [phone] Encounter Details Date Type Department Care Team (Late st Contact Info) Description 05/11/2016 Lab Requisition [facility] [address] [place] [address] Jenae Boucher MD [address] [place] [phone] Muscle weakness (generalized) Social History Tobacco Use Types Packs/Day Years [...] Encounters Date Type Department Care Team (Late Contact Info) Description 02/23/2025 9:45 AM EDT Office Visit [facility] Internal Medicine [place] [address] [place], [place] [address] Liya Oreilly MD [address] [place] [phone] documented as of this encounter Procedures Procedure Name Priority Date/Time Associated Diagnosis Comments COMPREHENSIVE METABOLIC PANEL Routine 05/11/2016 3:00 PM EDT Muscle weakness (generalized) LYME ANTIBODIES, IGG/IGM WESTERN BLOT (LAB ORDER ONLY) ([facility] Y) Routine 05/11/2016 3:00 PM EDT Muscle weakness (generalized) LYME ANTIBODIES W/RFLX TO CONFIRM (MODIFIED TWO-TIER TESTING) Routine 05/11/2016 3:00 PM EDT Muscle weakness (generalized) SEDIMENTATION RATE (ESR) Routine 05/11/2016 3:00 PM EDT Muscle weakness (generalized) MANUAL DIFFERENTIAL Routine 05/11/2016 3 :00 PM EDT Muscle weakness (generalized) CBC WITH AUTO DIFFERENTIAL Routine 05/11/2016 3:00 PM EDT Muscle weakness (generalized) MARTHA TITER AND PATTERN W/RFLX ([facility]) Routine 05/11/2016 3:00 PM EDT Muscle weakness (generalized) VITAMIN B3 (NIACIN) ([facility] LMW YH) Routine 05/11/2016 3:00 PM EDT Muscle weakness (generalized) CBC AND DIFFERENTIAL Routine 05/11/2016 3:00 PM EDT Muscle weakness (generalized) RHEUMATOID FACTOR Routine 05/11/2016 3:0 0 PM EDT Muscle weakness (generalized) C-REACTIVE PROTEIN (CRP) Routine 05/11/2016 3:00 PM EDT Muscle weakness (generalized) MARTHA IFA SCREEN W/REFL TO TITER AND PATTERN, IFA Routine 05/11/2016 3:00 PM EDT Muscle weakness (generalized) VITAMIN E Routine 05/11/2016 3:00 PM EDT Muscle weakness (generalized) TSH Routine 05/11/2016 3:00 PM EDT Muscle weakness (generalized) T4, FREE Routine 05/11/2016 3:00 PM EDT Muscle weakness (generalized) ZZZVITAMIN B1 Routine 05/11/2016 3:00 PM EDT Muscle weakness (generalized) VITAMIN B6 Routine 05/11/2016 3:00 PM EDT Muscle weakness (generalized) VITAMIN B12 Routine 05/11/2016 3:00 PM EDT Muscle weakness (generalized) CK ([facility]) Routine 05/11/2016 3 :00 PM EDT Muscle weakness (generalized) COMPREHENSIVE METABOLIC PANEL Routine 05/11/2016 3:00 PM EDT Muscle weakness (generalized) documented in this encounter Results * Lyme antibodies, IgG and IgM, by WB ([facility]) (05/11/2016 3:00 PM EDT) Lyme 93 KD IgG Absent 05/23/2016 2:31 PM [facility] Lyme 66 KD IgG Absent 05/23/2016 2:31 PM [facility] Lyme 58 KD IgG Absent 05/23/2016 2:31 PM [facility] Lyme 45 KD IgG Absent 05/23/2016 2:31 PM [facility] Lyme 41 KD IgG Absent 05/23/2016 2:31 PM [facility] Lyme 39 KD IgG Absent 05/23/2016 2:31 PM [facility] Lyme 30 KD IgG Absent 05/23/2016 2:31 PM [facility] Lyme 28 KD IgG Absent 05/23/2016 2:31 PM [facility] Lyme 23 KD IgG Absent 05/23/2016 2:31 PM [facility] Lyme 18 KD IgG Absent 05/23/2016 2:31 PM [facility] Lyme IgG WB Interp. Negative Negative 05/23/2016 2:31 PM [facility] Comment: Lyme IgG Western Blot Interpretation: POSITIVE = IgG Western Blot strips which have 5 (or more) of the 10 significant bands (18, 23, 28, 30, 39, 41, 45, 58, 66 or 93) are considered positive for specific antibody to B. burgdorferi. NEGATIVE = No bands present or no banding patterns which meet positive criteria. Lyme 41 KD IgM Present 05/23/2016 2:31 PM EDT [facility] Lyme 39 KD IgM Absent 05/23/2016 2:31 PM [facility] Lyme 23 KD IgM Absent 05/23/2016 2:31 PM [facility] Lyme IgM WB Interp. Negative Negative 05/23/2016 2:31 PM [facility] Comment: Lyme IgM Western Blot Interpretation: POSITIVE = IgM Western Blot strips which have 2 (or more) of the 3 significant bands (23, 39 or 41) are considered positive for specific antibody to B. burgdorferi. NEGATIVE = No bands present or no banding patterns which meet positive criteria. Interpretations per the Proceedings of the Second Conference of Lyme Disease, [place], [place], 1994. Caution must be used in supporting a diagnosis of B. burgdorferi infection when sera are Western Blot IgM positive and Western Blot IgG negative after initial 4 week period from onset. ??Because the likelihood of a false positive test result is high for these individuals, a positive IgM test alone is not recommended for use in determining active disease in persons with illness of longer than one month duration. NOTE: Results cannot be flagged as high/low. Blood specimen (specimen) 05/11/2016 3:00 PM EDT 05/11/2016 4:33 PM EDT us Jenae Boucher MD LAB BLOOD ORDERABLES Final Resu lt [facility] [address] [place] [phone], [facility] [phone] * (ABNORMAL) MARTHA titer ([facility]) (05/11/2016 3:00 PM EDT) MARTHA Titer 1:40(A) 1:2560, 1:5120, >1:5120 [facility] MARTHA Pattern Speckled 05/12/2016 10:11 AM [facility] Blood specimen (specimen) 05/11/2016 3:00 PM EDT 05/11/2016 4:33 PM EDT us Jenae Boucher MD LAB BLOOD ORDERABLES Final Resu lt Performing Organization Address [facility]/ZIP Co de Phone Number [address] [address], [facility] [phone] * (ABNORMAL) Manual Differential (05/11/2016 3:00 PM EDT) Neutrophils 38.0(L) 39.5 - 76.9 % 05/11/2016 5:19 PM [facility] Lymphocytes 51(H) 13 - 45 % 05/11/2016 5:19 PM [facility] Monocytes 5.0 3.3 - 13.4 % 05/11/2016 5:19 PM [facility] Eosinophils 4.0 0.0 - 4.8 % 05/11/2016 5:19 PM [facility] Atypical Lymphocytes 2.0 0.0 - 4.0 % 05/11/2016 5:19 PM [facility] ANC (Absolute Neutrophil Count) 2.47(L) 2.58 - 6.34 x1000/uL 05/11/2016 5:19 PM [facility] RBC Morphology Within Normal Limits Within Normal Limits 05/11/2016 5:19 PM [facility] Platelet Estimate Adequate Adequate 05/11/2016 5:19 PM [facility] Blood specimen (specimen) 05/11/2016 3:00 PM EDT 05/11/2016 4:58 PM EDT us Jenae Boucher MD LAB BLOOD ORDERABLES Final Resu lt Performing Organization Address [facility]/ZIP Co de Phone Number [address] [phone], [facility] [phone] * CBC auto differential (05/11/2016 3:00 PM EDT) WBC 6.5 4.5 - 13.5 x1000/uL 05/11/2016 4:[facility] RBC 4.62 3.90 - 5.03 M/uL 05/11/2016 4:59 PM [facility] Hemoglobin 12.3 10.6 - 13.4 g/dL 05/11/2016 4:59 PM [facility] Hematocrit 37.1 32.2 - 39.8 % 05/11/2016 4:59 PM [facility] MCV 80.3 74.4 - 87.6 fL 05/11/2016 4:59 PM [facility] MCH 26.6 24.8 - 29.5 pg 05/11/2016 4:59 PM [facility] MCHC 33.2 31.8 - 34.9 g/dL 05/11/2016 4:59 PM [facility] RDW-CV 13.3 12.2 - 14.4 % 05/11/2016 4:59 PM [facility] Platelets 215 199 - 369 x 1000/uL 05/11/2016 4:59 PM [facility] MPV 9.2 9.2 - 11.4 fL 05/11/2016 4:59 PM [facility] nRBC 0.0 0.0 - 0.2 /100 WBC 05/11/2016 4:59 PM [facility] Blood specimen (specimen) 05/11/2016 3:00 PM EDT 05/11/2016 4:58 PM EDT us Jenae Boucher MD LAB BLOOD ORDERABLES Final Resu lt [facility] [address] [place] [phone], [facility] [phone] * (ABNORMAL) Comprehensive metabolic panel (05/11/2016 3:00 PM EDT) Sodium 143 136 - 145 mmol/L 05/11/2016 5:40 PM EDT [facility] Potassium 3.6 3.5 - 5.1 mmol/L 05/11/2016 5:40 PM [facility] Chloride 107 95 - 115 mmol/L 05/11/2016 5:40 PM [facility] CO2 23 21 - 32 mmol/L 05/11/2016 5:40 PM [facility] Anion Gap 13 5 - 18 05/11/2016 5:40 PM [facility] Glucose 74 70 - 100 mg/dL 05/11/2016 5:40 PM [facility] BUN 12 8 - 25 mg/dL 05/11/2016 5:40 PM [facility] Creatinine 0.49(L) 0.50 - 1.30 mg/dL 05/11/2016 5:40 PM [facility] Calcium 8.9 8.4 - 10.3 mg/dL 05/11/2016 5:40 PM [facility] BUN/Creatinine Ratio 24.5 8.0 - 25.0 05/11/2016 5:40 PM [facility] Total Protein 6.9 6.4 - 8.2 g/dL 05/11/2016 5:40 PM [facility] Albumin 4.0 3.4 - 5.0 g/dL 05/11/2016 5:40 PM [facility] Total Bilirubin 0.3 0.0 - 1.0 mg/dL 05/11/2016 5:40 PM [facility] Alkaline Phosphatase 248 50 - 335 U/L 05/11/2016 5:40 PM [facility] Alanine Aminotransferase (ALT) 28 12 - 78 U/L 05/11/2016 5:40 PM [facility] Aspartate Aminotransferase (AST) 16 5 - 37 U/L 05/11/2016 5:40 PM [facility] Globulin 2.9 g/dL 05/11/2016 5:40 PM [facility] A/G Ratio 1.4 05/11/2016 5:40 PM [facility] AST/ALT Ratio 0.6 05/11/2016 5:40 PM [facility] Osmolality Calculation 283 275 - 295 mOsm/kg 05/11/2016 5:40 PM [facility] Blood specimen (specimen) 05/11/2016 3:00 PM EDT 05/11/2016 4:33 PM EDT us Jenae Boucher MD LAB BLOOD ORDERABLES Final Resu lt [facility] [address] [place] [address], [facility] [phone] * Niacin (vitamin B3) ([facility]) (05/11/2016 3:00 PM EDT) Nicotinic Acid < 20 ng/mL 05/21/2016 2:31 AM EDT [email or web address] Comment: ?? Due to the large variability in the metabolism of nicotinic ??acid, the dosing preparation used (immediate-release vs. extended ??release), and the mg doses used, the serum concentrations may ??range from less than 20 ng/mL to about 30,000 ng/mL. After oral ??administration of an immediate-release tablet, peak plasma ??concentrations occur in 4 to 5 hours. The plasma half-life of ??nicotinic acid is about one hour. In one study, fasting plasma ??concentrations were reported to be less than 20 ng/mL. In another ??study, it was reported that the administration of a single 1000 ??mg extended-release tablet resulted in mean nicotinic acid ??concentrations of less than 50 ng/mL. Nicotinamide < 20 ng/mL 05/21/2016 2:31 AM EDT [email or web address] Comment: ?? Nicotinamide is a metabolite of nicotinic acid. Due to the large ??variability in the metabolism of nicotinic acid, plasma ??concentrations of this metabolite are variable. In one study, ??fasting plasma concentrations were reported to be approximately ??40 ng/mL. In another study it was reported that the ??administration of a single 1000 mg of extended-release tablet of ??nicotinic acid resulted in a mean peak nicotinamide concentration ??of 400 ng/mL between 5 and 10 hours post dose, decreasing to ??about 100 ng/mL by 16 hours post dose. Test performed by: ? [employer] [facility] ? [address] [facility] ? [place] [address] ? Phone: ??[phone] ? [phone] Cordell Billy M.D., AP., Engineer [employer] Test Reported by [facility], [address] [place] [address] Ronnie Macias M.D., Ph.D., Director of Laboratories , [place] [id number] Blood specimen (specimen) 05/11/2016 3:00 PM EDT 05/11/2016 4:40 PM EDT Jenae Boucher MD LAB BLOOD ORDERABLES Final Resu lt [facility] * Vitamin E (05/11/2016 3:00 PM EDT) Pathologist [facility] Alpha-Tocopherol 8.8 6.2 - 14.3 mg/L 05/19/2016 4:48 PM EDT [facility] Comment: Levels of alpha-tocopherol <5 mg/L are consistent with Vitamin E deficiency in adults. Beta-Gamma Tocopherol <1.0 <=3.8 mg/L 05/19/2016 4:48 PM EDT [facility] Comment: Vitamin supplementation within 24 hours prior to blood draw may affect the accuracy of the results. This test was developed and its analytical performance characteristics have been determined by [employer] [place], [place]. It has not been cleared or approved by the U.S. Food and Drug Administration. This assay has been validated pursuant to the CLIA regulations and is used for clinical purposes. Test Performed at: [employer] [address] ??[phone] Ronnie Macias M.D., Ph.D.,Director of Laboratories Blood specimen (specimen) 05/11/2016 3:00 PM EDT 05/11/2016 4:40 PM EDT Jenae Boucher MD LAB BLOOD ORDERABLES Final Resu lt Performing Organization Address [facility] Co de Phone Number [facility] * Vitamin B1 (05/11/2016 3:00 PM EDT) Pathologist [facility] Vitamin B1 21 8 - 30 nmol/L 05/14/2016 10:59 AM EDT [facility] Comment: Vitamin supplementation within 24 hours prior to blood draw may affect the accuracy of the results. This test was developed and its analytical performance characteristics have been determined by [employer] [place], [place]. It has not been cleared or approved by the U.S. Food and Drug Administration. This assay has been validated pursuant to the CLIA regulations and is used for clinical purposes. Test Performed at: [employer] [address] ??[phone] Ronnie Macias M.D., Ph.D.,Director of Laboratories Blood specimen (specimen) 05/11/2016 3:00 PM EDT 05/11/2016 4:32 PM EDT Jenae Boucher MD LAB BLOOD ORDERABLES Final Resu lt Performing Organization Address [facility] de Phone Number [facility] * Vitamin B6 (05/11/2016 3:00 PM EDT) [facility] Vitamin B6 9.8 3.0 - 35.0 ng/mL 05/15/2016 1:45 PM EDT [facility] Comment: Vitamin supplementation within 24 hours prior to blood draw may affect the accuracy of the results. This test was developed and its analytical performance characteristics have been determined by [employer] [place], [place]. It has not been cleared or approved by the U.S. Food and Drug Administration. This assay has been validated pursuant to the CLIA regulations and is used for clinical purposes. Test Performed at: [facility] [address] ??[phone] Ronnie Macias M.D., Ph.D.,Director of Laboratories Blood specimen (specimen) 05/11/2016 3:00 PM EDT 05/11/2016 4:32 PM EDT us Jenae Boucher MD LAB BLOOD ORDERABLES Final Resu lt Performing Organization Address [facility]/ZIP Co de Phone Number [facility] * Vitamin B12 (05/11/2016 3:00 PM EDT) Vitamin B12 590 254 - 1,320 pg/mL 05/11/2016 7:40 PM EDT [facility] Blood specimen (specimen) 05/11/2016 3:00 PM EDT 05/11/2016 4:33 PM EDT us Jenae Boucher MD LAB BLOOD ORDERABLES Final Resu lt Performing Organization Address [facility] Co de Phone Number [facility] [address] [place] [phone], [facility] [phone] * TSH (05/11/2016 3:00 PM EDT) Thyroid Stimulating Hormone 0.883 0.600 - 6.180 uU/mL 05/11/2016 5:40 PM EDT [facility] Blood specimen (specimen) 05/11/2016 3:00 PM EDT 05/11/2016 4:33 PM EDT [facility] - 05/11/2016 5:40 PM EDT Pediatric (<18 years) Ranges extrapolated from [employer] Refernce Intervals Johnny Peguero et al., fifth edition, 2005. us Jenae Boucher MD LAB BLOOD ORDERABLES Final Resu lt Performing Organization Address [facility] Co de Phone Number [facility] [address] [place] [phone], [facility] [phone] * T4, free (05/11/2016 3:00 PM EDT) Free T4 0.89 0.76 - 1.46 ng/dL [facility]/11[facility]2016 [facility] Blood specimen (specimen) 05/11/2016 3:00 PM EDT 05/11/2016 4:33 PM EDT us Jenae Boucher MD LAB BLOOD ORDERABLES Final Resu lt Performing Organization Address [facility]/ZIP Co de Phone Number [facility] [address] [place] [phone], [facility] [phone] * CK ([facility]) (05/11/2016 3:00 PM EDT) Total CK 50 40 - 460 U/L 05/11/2016 5:40 PM EDT [facility] Blood specimen (specimen) 05/11/2016 3:00 PM EDT 05/11/2016 4:33 PM EDT us Jenae Boucher MD LAB BLOOD ORDERABLES Final Resu lt Performing Organization Address [facility]/ZIP Co de Phone Number [facility] [address] [place] [address], [facility] [phone] * Lyme antibodies w/ reflex to WB ([facility] Y) (05/11/2016 3:00 PM EDT) [facility] Lyme Ab 0.01 0.00-0.89 Index 05/12/2016 12:57 PM EDT [facility] Comment: INTERPRETATION: ? <0.90 Index = Negative ? 0.90-1.09 Index = Equivocal ?>=1.10 Index = Positive The presence of IgG/IgM antibodies is an indication of exposure to Borrelia organism. A single specimen can only ??be use to estimate the serological status of the individual. Absence of antibody might not rule out lyme disease when clinical symptoms are present. A small percentage of false negtive and false positive results can be expected with all serologic screening tests, especially early in the disease process. Repeat testing after a 7 to 10 day interval reduces the false negative rate in clinically suspect cases. Reflex testing by Western Blot reduces the false positive rate. Blood specimen (specimen) 05/11/2016 3:00 PM EDT 05/11/2016 4:33 PM EDT us Jenae Boucher MD LAB BLOOD ORDERABLES Final Resu lt Performing Organization Address [facility] Co de Phone Number [facility] [address] [place] [phone], [facility] [phone] * (ABNORMAL) MARTHA IFA screen w/refl to titer and pattern, IFA (05/11/2016 3:00 PM EDT) Pathologist [facility] MARTHA Weak Positive(A ) Negative 05/12/2016 10:11 AM EDT [facility] Blood specimen (specimen) 05/11/2016 3:00 PM EDT 05/11/2016 4:33 PM EDT us Jenae Boucher MD LAB BLOOD ORDERABLES Final Resu lt Performing Organization Address [facility] Co de Phone Number [facility] [address] [place] [phone], [facility] [phone] * Rheumatoid factor (05/11/2016 3:00 PM EDT) Pathologist [facility] Rheumatoid Factor <10.0 0.0 - 14.0 IU/mL 05/12/2016 8:27 AM EDT [facility] Blood specimen (specimen) 05/11/2016 3:00 PM EDT 05/11/2016 4:33 PM EDT Result Hugh Boucher MD LAB BLOOD ORDERABLES Final Resu lt Performing Organization Address [facility] Phone Number [facility] [address] [place] [phone], [facility] [phone] * C-reactive protein (CRP) (05/11/2016 3:00 PM EDT) Pathologist [facility] C-Reactive Protein <0.3 0.0 - 1.0 mg/dL 05/11/2016 5:40 PM EDT [facility] Blood specimen (specimen) 05/11/2016 3:00 PM EDT 05/11/2016 4:33 PM EDT Jenae Boucher MD LAB BLOOD ORDERABLES Final Resu lt Performing Organization Address [facility] Co de Phone Number [facility] [address] [place] [phone], [facility] [phone] * Sedimentation rate (ESR) (05/11/2016 3:00 PM EDT) Sedimentation Rate (ESR) 5 0 - 20 mm/hr 05/11/2016 5:23 PM EDT [facility] Blood specimen (specimen) 05/11/2016 3:00 PM EDT 05/11/2016 4:58 PM EDT Jenae Boucher MD LAB BLOOD ORDERABLES Final Resu lt Performing Organization Address [facility] Co de Phone Number [facility] [address] [place] [phone], [facility] [phone] documented in this encounter Visit Diagnoses Diagnosis Muscle weakness (generalized) documented in this encounter Additional Health Concerns [...] documented as of this encounter Care Teams Network Relay Tester Relationship Specialty Start Date End Date Liya Oreilly MD [address] [facility] [address] [place] [phone] PCP - General Internal Medicine 06/20/23 documented as of this encounter
--- OUTSIDE RECORDS SUMMARY | 2024-11-04 01:50 | XMS_ITS | Encounter Summary ---
Author Organization [facility] Address [address] [place] [address] Care Team Providers Care Weight Loss Consultant Name Role Phone Liya Oreilly MD Primary Care Provider [phone] Encounter Details Date Type Department Care Team (Late st Contact Info) Description 05/21/2018 Lab Requisition [facility] [address] [place] [address] Rajesh Hicks MD [address] [facility] [address] [place] [phone] Urinary tract infection Social History Tobacco Use Types Packs/Day Years [...] AM EDT Office Visit [facility] [address] [place] [address] Liya Oreilly MD [address] [facility] [address] [place] [address] documented as of this encounter Visit Diagnoses Diagnosis Urinary tract infection Urinary tract infection, site not specified documented in this encounter Additional Health Concerns [...] documented as of this encounter Care Teams Weight Loss Consultant Relationship Specialty Start Date End Date Liya Oreilly MD [address] [place] [facility] [address] [place] [address] PCP - General Internal Medicine 06/20/23 documented as of this encounter
--- OUTSIDE RECORDS SUMMARY | 2024-11-04 01:50 | XMS_ITS | Encounter Summary ---
Author Organization [facility] Address [address] [place] [address] Care Team Providers Care It Sales Executive Name Role Phone Liya Oreilly MD Primary Care Provider [phone] Reason for Visit * Reason Onset Date Comments Triage 03/11/2024 Encounter Details Date Type Department Care Team (Late st Contact Info) Description 03/11/2024 Telephone [facility] [place] [address] [place] [address] Liya Oreilly MD [address] [facility] [address] [place] [address] Triage Social History Tobacco Use Types Packs/Day Years Used Date Smoking Tobacco: Never Smokeless Tobacco: Never Alcohol Use Standard Drinks/Week Comments Never 0 [...] AM EST documented as of this encounter Miscellaneous Notes * Telephone Encounter - Elissa Araiza - 03/11/2024 10:18 AM EDT Clinical Problem: Message from the Emergency Communications Dispatcher - Non Clinical Triage What are your symptoms? Right eye sty Is this a new or existing problem? new When did this start? 3-4 days Do you have any pain? yes Have you treated this in any way yet? Does anyone else treat you for this? no Appointment was scheduled: no The best number you can be reached at?: [phone] Last office visit? Visit date not found Next office visit? Visit date not found documented in this encounter Plan of Treatment Upcoming Encounters Date Type Department Care Team (Late st Contact Info) Description 02/23/2025 9:45 AM EDT Office Visit [facility] [place] [address] [place], [place] [id number] Liya Oreilly MD [address] [address] documented as of this encounter Visit Diagnoses Not on filedocumented in this encounter Additional Health Concerns Assessment Noted Time PHQ-9 Depression Total Score: 0 02/05/20 24 10:55 AM EDT documented as of this encounter Care Teams It Sales Executive Relationship Specialty Start Date End Date Liya Oreilly MD [address] [address] PCP - General Internal Medicine 06/20/23 documented as of this encounter
--- OUTSIDE RECORDS SUMMARY | 2024-11-04 01:50 | XMS_ITS | Encounter Summary ---
Author Organization [facility] Address [address] [place] [address] Care Team Providers Care Quality Assurance Calibrator Name Role Phone Liya Oreilly MD Primary Care Provider [phone] Encounter Details Date Type Department Care Team (Late st Contact Info) Description 07/26/2021 Lab Requisition [place] [address] [place] [address] Rajesh Hicks MD [address] [place] [address] [place] [phone] Other fatigue Social History Tobacco Use Types Packs/Day Years [...] AM EDT Office Visit [facility] [place] [address] [place] [address] Liya Oreilly MD [address] [place] [address] [place] [address] documented as of this encounter Procedures Procedure Name Priority Date/Time Associated Diagnosis Comments COMPREHENSIVE METABOLIC PANEL Routine 07/26/2021 8:21 PM EST Other fatigue LYME ANTIBODIES W/RFLX TO CONFIRM (MODIFIED TWO-TIER TESTING) Routine 07/26/2021 8:21 PM EST Other fatigue ZZZEBV PANEL (GH) Routine 07/26/2021 8:2 1 PM EST Other fatigue VITAMIN D, 25-HYDROXY Routine 07/26/2021 8:21 PM EST Other fatigue SEDIMENTATION RATE (ESR) Routine 07/26/2021 8:21 PM EST Other fatigue HETEROPHILE ANTIBODY (MONOSPOT) (BH GH L LMW YH) Routine 07/26/2021 8:21 PM EST Other fatigue CBC WITH AUTO DIFFERENTIAL Routine 07/26/2021 8:21 PM EST Other fatigue IRON AND TIBC Routine 07/26/2021 8:21 PM EST Other fatigue HC MALU-MORSE NUCLEAR ANTIGEN ANTIBODY Routine 07/26/2021 8:21 PM EST Other fatigue MALU-MORSE VIRUS EARLY ANTIGEN ANTIBODY, IGG (GH L LMW Q) Routine 07/26/2021 8:21 PM EST Other fatigue HC MALU MORSE VCA IGM Routine 07/26/2021 8:21 PM EST Other fatigue HC MALU MORSE VCA IGG Routine 07/26/2021 8:21 PM EST Other fatigue CBC AND DIFFERENTIAL Routine 07/26/2021 8:21 PM EST Other fatigue C-REACTIVE PROTEIN (CRP) Routine 07/26/2021 8:21 PM EST Other fatigue MARTHA IFA SCREEN W/REFL TO TITER AND PATTERN, IFA Routine 07/26/2021 8:21 PM EST Other fatigue TSH Routine 07/26/2021 8:21 PM EST Other fatigue T4, FREE Routine 07/26/2021 8:21 PM EST Other fatigue HEMOGLOBIN A1C Routine 07/26/2021 8:21 PM EST Other fatigue FERRITIN Routine 07/26/2021 8:21 PM EST Other fatigue VITAMIN B12 Routine 07/26/2021 8:21 PM EST Other fatigue COMPREHENSIVE METABOLIC PANEL Routine 07/26/2021 8:21 PM EST Other fatigue documented in this encounter Results * Malu-Morse virus early antigen antibody, IgG (GH L LMW Q) (07/26/2021 8:21 PM EST) EBV Early Ag Ab Units <0.2 <0.8 07/28/2021 9:09 AM [facility] DEPARTMENT OF PATHOLOGY EBV Early Antigen Antibody, IgG Negative Negative 07/28/2021 9:09 AM [facility] DEPARTMENT OF PATHOLOGY Blood 07/26/2021 8:21 PM EST 07/26/2021 9:13 PM EST us Rajesh Hicks MD LAB BLOOD ORDERABLES Final Re sult [facility] DEPARTMENT OF PATHOLOGY [address] [place] [address], [facility] [phone] * (ABNORMAL) Malu-Morse virus nuclear antigen antibody, IgG (GH L) (07/26/2021 8:21 PM EST) EBV Nuclear Ag Ab Units >8.0(H) <0.8 AI 07/28/2021 9:09 AM [facility] DEPARTMENT OF PATHOLOGY EBV Nuclear Antigen Antibody Positive(A ) Negative 07/28/2021 9:09 AM [facility] DEPARTMENT OF PATHOLOGY Blood 07/26/2021 8:21 PM EST 07/26/2021 9:13 PM EST us Rajesh Hicks MD LAB BLOOD ORDERABLES Final Re sult Performing Organization Address City/[facility]/ZIP Co de Phone Number [facility] DEPARTMENT OF PATHOLOGY [address] [place] [address] * Malu-Morse virus VCA, IgM (GH L Q) (07/26/2021 8:21 PM EST) EBV VCA IgM Units 0.8 <0.8 AI 08/08/2021 7:48 PM [facility] DEPARTMENT OF PATHOLOGY EBV VCA IgM Negative Negative 08/08/2021 7:48 PM [facility] PATHOLOGY Blood 07/26/2021 8:21 PM EST 07/26/2021 9:13 PM EST us Rajesh Hicks MD LAB BLOOD ORDERABLES Final Re sult Performing Organization Address [facility] Co de Phone Number [facility] OF PATHOLOGY [address] [place] [address] * (ABNORMAL) Malu-Morse virus VCA, IgG (GH L Q) (07/26/2021 8:21 PM EST) EBV VCA IgG Units 3.2(H) <0.8 AI 07/28/2021 9:09 AM [facility] DEPARTMENT OF PATHOLOGY EBV VCA IgG Positive(A ) Negative 07/28/2021 9:09 AM [facility] DEPARTMENT OF PATHOLOGY Blood 07/26/2021 8:21 PM EST 07/26/2021 9:13 PM EST us Rajesh Hicks MD LAB BLOOD ORDERABLES Final Re sult [facility] DEPARTMENT OF PATHOLOGY [address] [place] [address], [facility] [phone] * (ABNORMAL) CBC auto differential (07/26/2021 8:21 PM EST) WBC 6.0 4.9 - 9.7 x1000/??L 07/26/2021 9:42 PM [facility] DEPARTMENT OF PATHOLOGY RBC 4.83 4.07 - 4.90 M/??L 07/26/2021 9:42 PM [facility] DEPARTMENT OF PATHOLOGY Hemoglobin 13.5 11.4 - 14.7 g/dL 07/26/2021 9:42 PM [facility] DEPARTMENT OF PATHOLOGY Hematocrit 41.90 35.30 - 44.10 % 07/26/2021 9:42 PM [facility] DEPARTMENT OF PATHOLOGY MCV 86.7 80.5 - 91.8 fL 07/26/2021 9:42 PM [facility] DEPARTMENT OF PATHOLOGY MCH 28.0 25.7 - 30.6 pg 07/26/2021 9:42 PM [facility] DEPARTMENT OF PATHOLOGY MCHC 32.2 31.4 - 34.1 g/dL 07/26/2021 9:42 PM [facility] DEPARTMENT OF PATHOLOGY RDW-CV 13.9 11.9 - 14.6 % 07/26/2021 9:42 PM [facility] DEPARTMENT OF PATHOLOGY Platelets 226 205 - 354 x1000/??L 07/26/2021 9:42 PM [facility] DEPARTMENT OF PATHOLOGY MPV 10.6 9.5 - 11.7 fL 07/26/2021 9:42 PM [facility] DEPARTMENT OF PATHOLOGY Neutrophils 73.0(H) 43.2 - 66.9 % 07/26/2021 9:42 PM [facility] DEPARTMENT OF PATHOLOGY Lymphocytes 20.2(L) 23.0 - 44.4 % 07/26/2021 9:42 PM [facility] DEPARTMENT OF PATHOLOGY Monocytes 5.0(L) 5.8 - 10.3 % 07/26/2021 9:42 PM [facility] DEPARTMENT OF PATHOLOGY Eosinophils 0.8 0.6 - 4.3 % 07/26/2021 9:42 PM [facility] DEPARTMENT OF PATHOLOGY Basophil 0.7 0.0 - 1.0 % 07/26/2021 9:42 PM [facility] DEPARTMENT OF PATHOLOGY Immature Granulocytes 0.3 0.1 - 0.4 % 07/26/2021 9:42 PM [facility] DEPARTMENT OF PATHOLOGY nRBC 0.0 0.0 - 1.0 % 07/26/2021 9:42 PM [facility] DEPARTMENT OF PATHOLOGY ANC(Abs Neutrophil Count) 4.34 2.24 - 5.93 x 1000/??L 07/26/2021 9:42 PM [facility] DEPARTMENT OF PATHOLOGY Absolute Lymphocyte Count 1.20(L) 1.58 - 3.10 x 1000/??L 07/26/2021 9:42 PM [facility] DEPARTMENT OF PATHOLOGY Monocyte Absolute Count 0.30(L) 0.36 - 0.77 x 1000/??L 07/26/2021 9:42 PM [facility] DEPARTMENT OF PATHOLOGY Eosinophil Absolute Count 0.05 0.04 - 0.31 x 1000/??L 07/26/2021 9:42 PM [facility] DEPARTMENT OF PATHOLOGY Basophil Absolute Count 0.04 0.02 - 0.06 x 1000/??L 07/26/2021 9:42 PM [facility] DEPARTMENT OF PATHOLOGY Absolute Immature Granulocyte Count 0.02 0.01 - 0.04 x 1000/??L 07/26/2021 9:42 PM [facility] DEPARTMENT OF PATHOLOGY Absolute nRBC 0.00 0.00 - 0.00 x 1000/??L 07/26/2021 9:42 PM [facility] DEPARTMENT OF PATHOLOGY Blood 07/26/2021 8:21 PM EST 07/26/2021 9:13 PM EST us Rajesh Hicks MD LAB BLOOD ORDERABLES Final Re sult [facility] DEPARTMENT OF PATHOLOGY [address] [place], [place] [id number] [phone] * (ABNORMAL) Comprehensive metabolic panel (07/26/2021 8:21 PM EST) Sodium 140 136 - 145 mmol/L 07/26/2021 10:53 PM EST [facility] DEPARTMENT OF PATHOLOGY Potassium 4.4 3.5 - 5.1 mmol/L 07/26/2021 10:53 PM [facility] DEPARTMENT OF PATHOLOGY Chloride 106 95 - 115 mmol/L 07/26/2021 10:53 PM [facility] DEPARTMENT OF PATHOLOGY CO2 27 21 - 32 mmol/L 07/26/2021 10:53 PM [facility] DEPARTMENT OF PATHOLOGY Anion Gap 7 5 - 18 07/26/2021 10:53 PM [facility] DEPARTMENT OF PATHOLOGY Glucose 103(H) 70 - 100 mg/dL 07/26/2021 10:53 PM [facility] DEPARTMENT OF PATHOLOGY BUN 11 8 - 25 mg/dL 07/26/2021 10:53 PM [facility] DEPARTMENT OF PATHOLOGY Creatinine 0.64 0.50 - 1.30 mg/dL 07/26/2021 10:53 PM [facility] DEPARTMENT OF PATHOLOGY Calcium 8.8 8.4 - 10.3 mg/dL 07/26/2021 10:53 PM [facility] DEPARTMENT OF PATHOLOGY BUN/Creatinine Ratio 17.2 8.0 - 25.0 06/30 10:53 PM [facility] DEPARTMENT OF PATHOLOGY Total Protein 6.9 6.4 - 8.2 g/dL 07/26/2021 10:53 PM [facility] DEPARTMENT OF PATHOLOGY Albumin 4.0 3.4 - 5.0 g/dL 07/26/2021 10:53 PM [facility] DEPARTMENT OF PATHOLOGY Total Bilirubin 0.5 0.0 - 1.0 mg/dL 07/26/2021 10:53 PM [facility] DEPARTMENT OF PATHOLOGY Comment:Use of this assay is not recommended for patients undergoing treatment with Eltrombopag due to the potential for falsely elevated results. Alkaline Phosphatase 82 50 - 335 U/L 07/26/2021 10:53 PM [facility] DEPARTMENT OF PATHOLOGY Alanine Aminotransferase (ALT) 16 12 - 78 U/L 07/26/2021 10:53 PM [facility] DEPARTMENT OF PATHOLOGY Aspartate Aminotransferase (AST) 15 5 - 37 U/L 07/26/2021 10:53 PM [facility] DEPARTMENT OF PATHOLOGY Globulin 2.9 g/dL 07/26/2021 10:53 PM [facility] DEPARTMENT OF PATHOLOGY A/G Ratio 1.4 07/26/2021 10:53 PM [facility] DEPARTMENT OF PATHOLOGY AST/ALT Ratio 0.9 See Comment 07/26/2021 10:53 PM [facility] DEPARTMENT OF PATHOLOGY Comment: Adult with mild elevations of transaminases (< 5 times upper limit of normal): AST/ALT > 2 suggests alcoholic liver injury AST/ALT < 1 suggests non-alcoholic fatty liver disease (NAFLD) [place] (healthy): AST/ALT can be > 3 on day 0 AST/ALT < 2 by day 5 The thresholds provided focus on the most common etiologies of elevated serum transaminase levels and the associated alteration of AST:ALT ratios; they are not intended to exclude other feasible and clinically appropriate possibilities eGFR (Afr Amer) 10:53 PM [facility] DEPARTMENT OF PATHOLOGY Comment:Calculation not chacho d for patients less than 18 years old eGFR (NON -Iranian) 07/26/2021 10:53 PM [facility] DEPARTMENT OF PATHOLOGY Comment:Calculation not chacho d for patients less than 18 years old Osmolality Calculation 279 275 - 295 mOsm/kg 07/26/2021 10:53 PM [facility] DEPARTMENT OF PATHOLOGY Blood 07/26/2021 8:21 PM EST 07/26/2021 9:13 PM EST us Rajesh Hicks MD LAB BLOOD ORDERABLES Final Re sult [facility] DEPARTMENT OF PATHOLOGY [address] [place] [address] * Vitamin D, 25-hydroxy (07/26/2021 8:21 PM EST) Vitamin D 25-Hydroxy Total 27 20 - 50 ng/mL 07/28/2021 10:07 AM [facility] OF PATHOLOGY Blood 07/26/2021 8:21 PM EST 07/26/2021 9:13 PM EST us Rajesh Hicks MD LAB BLOOD ORDERABLES Final Re sult [facility] DEPARTMENT OF PATHOLOGY [address] [place] [address] * Vitamin B12 (07/26/2021 8:21 PM EST) Vitamin B12 365 211 - 911 pg/mL 07/26/2021 10:55 PM EST [facility] DEPARTMENT OF PATHOLOGY Blood 07/26/2021 8:21 PM EST 07/26/2021 9:13 PM EST Rajesh Hicks MD LAB BLOOD ORDERABLES Final Re sult [facility] OF PATHOLOGY [address] [place] [address] * TSH (07/26/2021 8:21 PM EST) Thyroid Stimulating Hormone 0.800 0.600 - 6.180 ??IU/mL 07/26/2021 10:53 PM EST [facility] PATHOLOGY Blood 07/26/2021 8:21 PM EST 07/26/2021 9:13 PM EST Narrative [facility] DEPARTMENT OF PATHOLOGY - 07/26/2021 10:53 PM EST Pediatric (<18 years) Ranges extrapolated from Peditric Refernce Intervals Johnny Peguero et al., fifth edition, 2005. us Rajesh Hicks MD LAB BLOOD ORDERABLES Final Re sult [facility] DEPARTMENT OF PATHOLOGY [address] [place] [address] * T4, free (07/26/2021 8:21 PM EST) Free T4 0.80 0.76 - 1.46 ng/dL 07/26/2021 10:53 PM EST [facility] DEPARTMENT OF PATHOLOGY Blood 07/26/2021 8:21 PM EST 07/26/2021 9:13 PM EST Rajesh Hicks MD LAB BLOOD ORDERABLES Final Re sult Performing Organization Address City/[facility]/ZIP Co de Phone Number [facility] DEPARTMENT OF PATHOLOGY [address] [place] [address] * Heterophile antibody (monospot) ( GH L LMW YH) (07/26/2021 8:21 PM EST) EBV Heterophile Antibodies (Monospot) Negative Negative 07/26/2021 11:37 PM [facility] DEPARTMENT OF PATHOLOGY Blood 07/26/2021 8:21 PM EST 07/26/2021 9:13 PM EST Rajesh Hicks MD LAB BLOOD ORDERABLES Final Re sult Performing Organization Address [facility]/ZIP Co de Phone Number [facility] DEPARTMENT OF PATHOLOGY [address] [place] [address] * Lyme antibodies w/ reflex to confirmation ([facility] LMW YH) (07/26/2021 8:21 PM EST) Lyme Ab 0.05 0.00-0.89 Index 07/28/2021 10:15 AM [facility] DEPARTMENT OF PATHOLOGY Comment: INTERPRETATION: ? <0.90 Index = Negative [...] Blot reduces the false positive rate. Blood 07/26/2021 8:21 PM EST 07/26/2021 9:13 PM EST Result [facility] Rajesh Hicks MD LAB BLOOD ORDERABLES Final Re sult [facility] DEPARTMENT OF PATHOLOGY [address] [place] [address] * Iron and TIBC (07/26/2021 8:21 PM EST) Iron 70 40 - 150 ug/dL 07/26/2021 10:55 PM [facility] DEPARTMENT OF PATHOLOGY TIBC 370 250 - 450 ug/dL 07/26/2021 10:55 PM [facility] DEPARTMENT OF PATHOLOGY Iron Saturation 19 11 - 46 % 10:55 PM [facility] DEPARTMENT OF PATHOLOGY Blood 07/26/2021 8:21 PM EST 07/26/2021 9:13 PM EST Rajesh Hicks MD LAB BLOOD ORDERABLES Final Re sult Performing Organization Address [facility]/ZIP Co de Phone Number [facility] DEPARTMENT OF PATHOLOGY [address] [place] [address] * Hemoglobin A1c (07/26/2021 8:21 PM EST) Hemoglobin A1c 5.2 See Comment % 07/26/2021 9:41 PM [facility] DEPARTMENT OF PATHOLOGY Comment: The [employer], 2012 Diagnosis and Classification of Diabetes Mellitus: Hemoglobin A1c ?? 5.7 - 6.4% ?- Increased risk for diabetes ?? >= 6.5% ? - Diagnostic of diabetes Blood 07/26/2021 8:21 PM EST 07/26/2021 9:13 PM EST Rajesh Hicks MD LAB BLOOD ORDERABLES Final Re sult [facility] DEPARTMENT OF PATHOLOGY [address] [place] [address] * Ferritin (07/26/2021 8:21 PM EST) Ferritin 23 8 - 252 ng/mL 07/26/2021 10:55 PM EST [facility] PATHOLOGY Blood 07/26/2021 8:21 PM EST 07/26/2021 9:13 PM EST us Rajesh Hicks MD LAB BLOOD ORDERABLES Final Re sult [facility] DEPARTMENT OF PATHOLOGY [address] [place] [address] * Sedimentation rate (ESR) (07/26/2021 8:21 PM EST) Sedimentation Rate (ESR) 13 0 - 20 mm/hr 07/26/2021 9:47 PM EST [facility] PATHOLOGY Blood 07/26/2021 8:21 PM EST 07/26/2021 9:13 PM EST us Rajesh Hicks MD LAB BLOOD ORDERABLES Final Re sult [facility] OF PATHOLOGY [address] [place] [address] * C-reactive protein (CRP) (07/26/2021 8:21 PM EST) C-Reactive Protein 0.5 0.0 - 1.0 mg/dL 07/26/2021 10:55 PM EST [facility] PATHOLOGY Blood 07/26/2021 8:21 PM EST 07/26/2021 9:13 PM EST Result Hugh Hicks MD LAB BLOOD ORDERABLES Final Re sult [facility] DEPARTMENT OF PATHOLOGY [address] [place] [address] * MARTHA IFA SCREEN W/REFL TO TITER AND PATTERN, IFA (07/26/2021 8:21 PM EST) MARTHA Negative Negative 07/28/2021 11:55 AM EST [facility] DEPARTMENT OF PATHOLOGY Comment:Specimen tested sharri berg HEp-2 indirect immunofluorescent assay. Blood 07/26/2021 8:21 PM EST 07/26/2021 9:13 PM EST us Rajesh Hicks MD LAB BLOOD ORDERABLES Final Re sult [facility] DEPARTMENT OF PATHOLOGY [address] [place] [address] documented in this encounter Visit Diagnoses Diagnosis Other fatigue documented in this encounter Care Teams Quality Assurance Calibrator Relationship Specialty Start Date End Date Liya Oreilly MD [address] [place] [facility] [address] [place] [id number] PCP - General Internal Medicine 06/20/23 documented as of this encounter
--- OUTSIDE RECORDS SUMMARY | 2024-11-04 01:50 | XMS_ITS | Encounter Summary ---
Author Organization [facility] Address [address] [place] [address] Care Team Providers Care Pasting Machine Operator Name Role Phone Liya Oreilly MD Primary Care Provider [phone] Encounter Details Date Type Department Care Team (Late st Contact Info) Description 08/19/2020 Lab Requisition [facility] [address] [place] [address] Jenae Boucher MD [address] [place] [phone] Encounter for screening for other viral diseases Social History Tobacco Use Types Packs/Day [...] AM EDT Office Visit [facility] [place] [address] [place] [address] Liya Oreilly MD [address] [facility] [address] [place] [address] documented as of this encounter Procedures Procedure Name Priority Date/Time Associated Diagnosis Comments SARS COV-2 (COVID-19) RNA-[facility] ([facility]) Routine 08/19/2020 7:27 PM EST Encounter for screening for other viral diseases documented in this encounter Results * SARS CoV-2 (COVID-19) RNA-[facility] (Healthcare Worker) ([facility]) (08/19/2020 7:27 PM EST) SARS-CoV-2 Specimen Source Nasopharynx 08/21/2020 9:49 PM EST [facility] SARS-CoV-2 Patient Race Unknown 08/21/2020 9:49 PM [facility] SARS-CoV-2 Patient Ethnicity Unknown 08/21/2020 9:49 PM [facility] SARS-CoV-2 RNA [place] Undetected Undetected 08/21/2020 9:49 PM [facility] Comment: SARS-CoV-2 RNA absent. This result does not rule out COVID-19 in the patient, as the sensitivity of the test depends on the timing of the specimen collection and the quality of the specimen. Result should be correlated with patient's history and clinical presentation. SARS-CoV-2 Method Summary SEE COMMENTS 08/21/2020 9:49 PM [facility] Comment: [facility] This PCR test uses the TaqPath COVID-19 Combo Kit ([employer] Helene.) and is performed on the [employer] magnetic particle processor and [employer] 7500 Fast Dx Real-Time PCR System. It has received Emergency Use Authorization (EUA) by the U.S. Food and Drug Administration. Performance characteristics were verified by [facility] in a manner consistent with CLIA requirements. Fact sheets for this Emergency Use Authorization (EUA) can be found at the following links: https://www.fda.gov/media/026003/download for Healthcare Providers https://www.fda.gov/media/697266/download for Patients Test Performed by: [facility] - [address] [address] Long Term Care Social Worker: Quinn Oropeza M.D. Ph.D.; [place]# [id number] Viral NASOPHARYNGEAL STRUCTURE / Unknown 08/19/2020 7:27 PM EST 08/19/2020 7:43 PM EST us Jenae Boucher MD MICROBIOLOGY - GENERAL ORDERABL ES Final Result [facility] documented in this encounter Visit Diagnoses Diagnosis Encounter for screening for other viral diseases documented in this encounter Additional Health [...] documented as of this encounter Care Teams Pasting Machine Operator Relationship Specialty Start Date End Date Liya Oreilly MD [address] [facility] [address] [place] [phone] PCP - General Internal Medicine 06/20/23 documented as of this encounter
--- OUTSIDE RECORDS SUMMARY | 2024-11-04 01:50 | XMS_ITS | Encounter Summary ---
Author Organization [facility] Address [address] [place] [address] Care Team Providers Care Steel Erector Name Role Phone Liya Oreilly MD Primary Care Provider [phone] [phone] Encounter Details Date Type Department Care Team (Late st Contact Info) Description 08/20/2023 Scanned Document [facility] Rheuamatology [facility] [address] [place], [place] [id number] Tala Almanzar MD [address] [place] [phone] Social History Tobacco Use Types Packs/Day Years Used Date Smoking Tobacco: Never Smokeless Tobacco: Never Alcohol Use Standard Drinks/Week Comments Never 0 (1 standard drink = 0.6 oz pur e alcohol) Comments Unknown Sex and Gender Information Value [...] 9:45 AM EDT Office Visit [facility] Internal Medicine [address] [address] Liya Oreilly MD [address] [phone] documented as of this encounter Visit Diagnoses Not on filedocumented in this encounter Care Teams Steel Erector Relationship Specialty Start Date End Date Liya Oreilly MD [address] [address] PCP - General Internal Medicine 06/20/23 documented as of this encounter
--- OUTSIDE RECORDS SUMMARY | 2024-11-04 01:50 | XMS_ITS | Encounter Summary ---
Author Organization [facility] Address [address] [place] [address] Care Team Providers Care Small Electric Engine Technician Name Role Phone Liya Oreilly MD Primary Care Provider [phone] [phone] Encounter Details Date Type Department Care Team (Late st Contact Info) Description 12/01/2020 Lab Requisition [facility] [address] [place] [address] Jenae Boucher MD [address] [place] [phone] Contact with and (suspected) exposure to [...] AM EDT Office Visit [facility] [place] [address] [place] [address] Liya Oreilly MD [address] [place] [facility] [address] [place] [address] documented as of this encounter Procedures Procedure Name Priority Date/Time Associated Diagnosis Comments SARS COV-2 (COVID-19) [facility] ([facility] LMW Y) Routine 12/01/2020 3:00 PM EDT Contact with and (suspected) exposure to other viral communicable diseases documented in this encounter Results * SARS CoV-2 (COVID-19) [facility] ([facility] LMW YH) (12/01/2020 3:00 PM EDT) SARS-CoV-2 RNA (COVID-19) Negative Negative 12/01/2020 11:47 PM EDT [facility] Comment: This assay is a Nucleic Acid Amplification Test (NAAT)/RT-PCR or TMA (21via[employer] System). This is run on the Multiply system. It has been validated for clinical use by the [facility] (CLIA #: [id number]). It has been granted Emergency Use Authorization by the [place] FDA. Note that falsely negative results can be due to poor sample quality, suboptimal sample type, low viral load, and viral genome variability. Patient Information: https://www.fda.gov/media/682137/download Provider Information: https://www.fda.gov/media/854596/download Test performance has not been evaluated in asymptomatic patients. Test ordering and result interpretation is at the discretion of the ordering provider. Viral NASOPHARYNGEAL STRUCTURE / Unknown 12/01/2020 3:00 PM EDT 12/01/2020 7:27 PM EDT Jenae Boucher MD MICROBIOLOGY - GENERAL ORDERABL ES Final Result [facility] [address] [place] [address] documented in this encounter Visit Diagnoses Diagnosis Contact with and (suspected) exposure to other viral communicable diseases documented in this encounter Additional Health Concerns Infection Onset Date Last Indicated Resolved Time R/O COVID-19 12/01/2020 12/01/2020 12/01/2020 11:4 7 PM EDT R/O COVID-19 12/06/2020 12/06/2020 12/07/2020 2:20 AM EDT R/O COVID-19 03/30/2021 03/30/2021 03/31/2021 1:47 AM EDT documented as of this encounter Care Teams Small Electric Engine Technician Relationship Specialty Start Date End Date Liya Oreilly MD [address] [facility] [address] [place] [phone] PCP - General Internal Medicine 06/20/23 documented as of this encounter
--- OUTSIDE RECORDS SUMMARY | 2024-11-04 01:50 | XMS_ITS | Encounter Summary ---
Author Organization [facility] and [facility] Address [address] [place] [address] Care Team Providers Care Coding Team Lead Name Role Phone Liya Oreilly MD Primary Care Provider [phone] [phone] Encounter Details Date Type Department Care Team (Late st Contact Info) Description 05/21/2018 Lab Requisition [facility] [address] [place] [address] Rajesh iHcks MD [address] [place] [address] [place] [phone] Fatigue Social History Tobacco Use Types Packs/Day Years [...] AM EDT Office Visit [facility] [place] [address] [place] [address] Liya Oreilly MD [address] [place] [phone] documented as of this encounter Procedures Procedure Name Priority Date/Time Associated Diagnosis Comments COMPREHENSIVE METABOLIC PANEL Routine 05/21/2018 9:23 PM EDT Fatigue [ICD-10-CM] ZZZEPSTEIN-MORSE HETEROPHILE IGM (GH) Routine 05/21/2018 9:23 PM EDT Fatigue [ICD-10-CM] LYME ANTIBODIES W/RFLX TO CONFIRM (MODIFIED TWO-TIER TESTING) Routine 05/21/2018 9:23 PM EDT Fatigue [ICD-10-CM] ZZZVITAMIN D, 25-HYDROXY, TOTAL (L) Routine 05/21/2018 9:23 PM EDT Fatigue [ICD-10-CM] ZZZEBV PANEL (GH) Routine 05/21/2018 9:2 3 PM EDT Fatigue [ICD-10-CM] SEDIMENTATION RATE (ESR) Routine 05/21/2018 9:23 PM EDT Fatigue [ICD-10-CM] HETEROPHILE ANTIBODY (MONOSPOT) (BH GH L LMW YH) Routine 05/21/2018 9:23 PM EDT Fatigue [ICD-10-CM] CBC WITH AUTO DIFFERENTIAL Routine 05/21/2018 9:23 PM EDT Fatigue [ICD-10-CM] ZZZEPSTEIN-MORSE VIRUS NUCLEAR ANTIGEN ANTIBODY, IGG (GH L) Routine 05/21/2018 9:23 PM EDT Fatigue [ICD-10-CM] MALU-MORSE VIRUS EARLY ANTIGEN ANTIBODY, IGG (GH L LMW Q) Routine 05/21/2018 9:23 PM EDT Fatigue [ICD-10-CM] ZZZEPSTEIN-MORSE VIRUS VCA, IGM (GH L Q) Routine 05/21/2018 9:23 PM EDT Fatigue [ICD-10-CM] ZZZEPSTEIN-MORSE VIRUS VCA, IGG (GH L Q) Routine 05/21/2018 9:23 PM EDT Fatigue [ICD-10-CM] CBC AND DIFFERENTIAL Routine 05/21/2018 9:23 PM EDT Fatigue [ICD-10-CM] C-REACTIVE PROTEIN (CRP) Routine 05/21/2018 9:23 PM EDT Fatigue [ICD-10-CM] MARTHA IFA SCREEN W/REFL TO TITER AND PATTERN, IFA Routine 05/21/2018 9:23 PM EDT Fatigue [ICD-10-CM] TSH Routine 05/21/2018 9:23 PM EDT Fatigue [ICD-10-CM] T4, FREE Routine 05/21/2018 9:23 PM EDT Fatigue [ICD-10-CM] COMPREHENSIVE METABOLIC PANEL Routine 05/21/2018 9:23 PM EDT Fatigue [ICD-10-CM] documented in this encounter Results * Vitamin D, 25-hydroxy, total (GH L) (05/21/2018 9:23 PM EDT) Vitamin D 25-Hydroxy Total 36 20 - 50 ng/mL 05/22/2018 11:13 AM EDT [facility] Blood specimen (specimen) 05/21/2018 9:23 PM EDT 05/21/2018 9:29 PM EDT us Rajesh Hicks MD LAB BLOOD ORDERABLES Final Re sult [facility] [address] [place] [phone], [facility] [phone] * Malu-Morse heterophile IgM (GH) (05/21/2018 9:23 PM EDT) Heterophile IgM Units <0.2 <0.8 AI 05/22/2018 1:17 PM EDT [facility] Heterophile IgM Negative Negative 8 1:17 PM EDT [facility] Blood specimen (specimen) 05/21/2018 9:23 PM EDT 05/21/2018 9:29 PM EDT Rajesh Hicks MD LAB BLOOD ORDERABLES Final Re sult [facility] [address] [place] [phone], [facility] [phone] * Malu-Morse virus early antigen antibody, IgG (GH L LMW Q) (05/21/2018 9:23 PM EDT) EBV Early Ag Ab Units <0.2 <0.8 05/22/2018 1:17 PM EDT [facility] EBV Early Antigen Antibody, IgG Negative Negative 05/22/2018 1:17 PM EDT [facility] Blood specimen (specimen) 05/21/2018 9:23 PM EDT 05/21/2018 9:29 PM EDT us Rajesh Hicks MD LAB BLOOD ORDERABLES Final Re sult Performing Organization Address [facility]/ZIP Co de Phone Number [facility] [address] [place] [phone], [facility] [phone] * (ABNORMAL) Malu-Morse virus nuclear antigen antibody, IgG (GH L) (05/21/2018 9:23 PM EDT) EBV Nuclear Ag Ab Units >8.0(H) <0.8 AI 05/22/2018 1:17 PM EDT [facility] EBV Nuclear Antigen Antibody Positive(A ) Negative 05/22/2018 1:17 PM EDT [facility] Blood specimen (specimen) 05/21/2018 9:23 PM EDT 05/21/2018 9:29 PM EDT us Rajesh Hicks MD LAB BLOOD ORDERABLES Final Re sult Performing Organization Address [facility]/ZIP Co de Phone Number [facility] [address] [place], [place] [phone], [facility] [phone] * Malu-Morse virus VCA, IgM (GH L Q) (05/21/2018 9:23 PM EDT) [facility] EBV VCA IgM Units 0.3 <0.8 AI 05/22/2018 1:17 PM EDT [facility] EBV VCA IgM Negative Negative 05/22/2018 1:17 PM EDT [facility] Blood specimen (specimen) 05/21/2018 9:23 PM EDT 05/21/2018 9:29 PM EDT us Rajesh Hicks MD LAB BLOOD ORDERABLES Final Re sult Performing Organization Address [facility] Co de Phone Number [facility] [address] [place] [phone], [facility] [phone] * (ABNORMAL) Malu-Morse virus VCA, IgG (GH L Q) (05/21/2018 9:23 PM EDT) [facility] EBV VCA IgG Units 3.5(H) <0.8 AI 05/22/2018 1:17 PM EDT [facility] EBV VCA IgG Positive(A ) Negative 05/22/2018 1:17 PM EDT [facility] Blood specimen (specimen) 05/21/2018 9:23 PM EDT 05/21/2018 9:29 PM EDT us Rajesh Hicks MD LAB BLOOD ORDERABLES Final Re sult Performing Organization Address [facility]/ZIP Co de Phone Number [facility] [address] [place] [phone], [facility] [phone] * (ABNORMAL) CBC auto differential (05/21/2018 9:23 PM EDT) WBC 7.3 3.8 - 10.6 x1000/??L 05/21/2018 9:41 PM [facility] RBC 4.2 4.2 - 5.4 M/??L 05/21/2018 9:41 PM [facility] Hemoglobin 11.5(L) 11.9 - 16.0 g/dL 05/21/2018 9:41 PM [facility] Hematocrit 35.6(L) 36.0 - 48.0 % 05/21/2018 9:41 PM [facility] MCV 85.0 80.0 - 99.0 fL 05/21/2018 9:41 PM [facility] MCHC 32.3 32.0 - 36.0 g/dL 05/21/2018 9:41 PM [facility] RDW-CV 12.8 11.5 - 14.5 % 05/21/2018 9:41 PM [facility] Platelets 285 140 - 446 x1000/??L 05/21/2018 9:41 PM [facility] MPV 9.7(L) 9.8 - 12.3 fL 05/21/2018 9:41 PM [facility] ANC (Abs Neutrophil Count) 3.5 1.8 - 7.3 x 1000/??L 05/21/2018 9:41 PM [facility] Neutrophils 48.3 38.0 - 74.0 % 05/21/2018 9:41 PM [facility] Lymphocytes 41.9 14.0 - 43.0 % 05/21/2018 9:41 PM [facility] Absolute Lymphocyte Count 3.0(H) 1.0 - 2.3 x 1000/??L 05/21/2018 9:41 PM [facility] Monocytes 6.2 0.0 - 14.0 % 05/21/2018 9:41 PM [facility] Monocyte Absolute Count 0.5 0.4 - 1.3 x 1000/??L 05/21/2018 9:41 PM [facility] Eosinophils 2.9 0.0 - 6.0 % 05/21/2018 9:41 PM [facility] Eosinophil Absolute Count 0.2 0.0 - 0.4 x 1000/??L 05/21/2018 9:41 PM EDT [facility] Basophil 0.6 0.0 - 2.0 % 05/21/2018 9:41 PM EDT [facility] Basophil Absolute Count 0.0 0.0 - 0.6 x 1000/??L 05/21/2018 9:41 PM EDT [facility] Immature Granulocytes 0.1 0.0 - 2.0 % 05/21/2018 9:41 PM EDT [facility] Absolute Immature Granulocyte Count 0.0 0.0 - 0.2 x 1000/??L 05/21/2018 9:41 PM EDT [facility] nRBC 0.0 0.0 - 0.2 % 05/21/2018 9:[facility] Absolute nRBC 0.0 <=0.0 x 1000/??L 05/21/2018 9:41 PM EDT [facility] MCH 27.4 25.7 - 31.0 pg 05/21/2018 9:41 PM EDT [facility] Blood specimen (specimen) 05/21/2018 9:23 PM EDT 05/21/2018 9:29 PM EDT [facility] - 05/21/2018 9:41 PM EDT Effective February 01, 2017, [facility], [facility], [facility], [facility], [facility], [facility] and [facility] will have new reference ranges for RDW: 11.5-14.5%. us Rajesh Hicks MD LAB BLOOD ORDERABLES Final Re sult [facility] [address] [place] [address], [facility] [phone] * (ABNORMAL) Comprehensive metabolic panel (05/21/2018 9:23 PM EDT) Sodium 139 136 - 145 mmol/L 05/21/2018 10:03 PM EDT [facility] Potassium 4.1 3.5 - 5.1 mmol/L 05/21/2018 10:03 PM [facility] Chloride 103 95 - 115 mmol/L 05/21/2018 10:03 PM [facility] CO2 25 21 - 32 mmol/L 05/21/2018 10:03 PM [facility] Anion Gap 11 5 - 18 05/21/2018 10:03 PM [facility] Glucose 78 70 - 100 mg/dL 05/21/2018 10:03 PM [facility] BUN 17 8 - 25 mg/dL 05/21/2018 10:03 PM [facility] Creatinine 0.55 0.50 - 1.30 mg/dL 05/21/2018 10:03 PM [facility] Calcium 9.2 8.4 - 10.3 mg/dL 05/21/2018 10:03 PM [facility] BUN/Creatinine Ratio 30.9(H) 8.0 - 25.0 05/21/2018 10:03 PM [facility] Total Protein 6.8 6.4 - 8.2 g/dL 05/21/2018 10:03 PM [facility] Albumin 4.0 3.4 - 5.0 g/dL 05/21/2018 10:03 PM [facility] Total Bilirubin 0.3 0.0 - 1.0 mg/dL 05/21/2018 10:03 PM [facility] Alkaline Phosphatase 162 50 - 335 U/L 05/21/2018 10:03 PM [facility] Alanine Aminotransferase (ALT) 17 12 - 78 U/L 05/21/2018 10:03 PM [facility] Aspartate Aminotransferase (AST) 17 5 - 37 U/L 05/21/2018 10:03 PM [facility] Globulin 2.8 g/dL 05/21/2018 10:03 PM [facility] A/G Ratio 1.4 05/21/2018 10:03 PM [facility] AST/ALT Ratio 1.0 05/21/2018 10:03 PM [facility] eGFR (Afr Amer) >60 mL/min/1. 73m2 05/21/2018 10:03 PM [facility] Comment:Calculation not chacho d for patients less than 18 years old eGFR (NON -Chadian) >60 mL/min/1. 73m2 05/21/2018 10:03 PM EDT [facility] Comment:Calculation not chacho d for patients less than 18 years old Osmolality Calculation 278 275 - 295 mOsm/kg 05/21/2018 10:03 PM EDT [facility] Blood specimen (specimen) 05/21/2018 9:23 PM EDT 05/21/2018 9:29 PM EDT Rajesh Hicks MD LAB BLOOD ORDERABLES Final Re sult Performing Organization Address [facility]/ZIP Co de Phone Number [facility] [address] [place] [phone], [facility] [phone] * TSH (05/21/2018 9:23 PM EDT) Thyroid Stimulating Hormone 2.570 0.600 - 6.180 ??IU/mL 05/21/2018 10:03 PM EDT [facility] Blood specimen (specimen) 05/21/2018 9:23 PM EDT 05/21/2018 9:29 PM EDT Narrative [facility] - 05/21/2018 10:03 PM EDT Pediatric (<18 years) Ranges extrapolated from [employer] Refernce Intervals Johnny Peguero et al., fifth edition, 2005. Rajesh Hicks MD LAB BLOOD ORDERABLES Final Re sult Performing Organization Address [facility] Co de Phone Number [facility] [address] [place] [phone], [facility] [phone] * T4, free (05/21/2018 9:23 PM EDT) Free T4 1.03 0.76 - 1.46 ng/dL 05/21/2018 10:03 PM EDT [facility] Blood specimen (specimen) 05/21/2018 9:23 PM EDT 05/21/2018 9:29 PM EDT Rajesh Hicks MD LAB BLOOD ORDERABLES Final Re sult Performing Organization Address [facility]/ZIP Co de Phone Number [facility] [address] [place] [phone], [facility] [phone] * Heterophile antibody (monospot) (BH GH L LMW YH) (05/21/2018 9:23 PM EDT) EBV Heterophile Antibodies (Monospot) Negative Negative 05/21/2018 9:52 PM EDT [facility] Blood specimen (specimen) 05/21/2018 9:23 PM EDT 05/21/2018 9:29 PM EDT Rajesh Hicks MD LAB BLOOD ORDERABLES Final Re sult Performing Organization Address [facility] Co de Phone Number [facility] [address] [place] [phone], [facility] [phone] * Lyme antibodies w/ reflex to WB ( GH LMW YH) (05/21/2018 9:23 PM EDT) Pathologist [facility] Lyme Ab 0.04 0.00-0.89 Index 05/22/2018 11:21 AM EDT [facility] Comment: INTERPRETATION: ? <0.90 Index = [...] the false positive rate. Blood specimen (specimen) 05/21/2018 9:23 PM EDT 05/21/2018 9:29 PM EDT us Rajesh Hicks MD LAB BLOOD ORDERABLES Final Re sult Performing Organization Address [facility]/ZIP Co de Phone Number [facility] [address] [place] [phone], [facility] [phone] * Sedimentation rate (ESR) (05/21/2018 9:23 PM EDT) Sedimentation Rate (ESR) 5 0 - 20 mm/hr 05/21/2018 10:13 PM EDT [facility] Blood specimen (specimen) 05/21/2018 9:23 PM EDT 05/21/2018 9:29 PM EDT us Rajesh Hicks MD LAB BLOOD ORDERABLES Final Re sult Performing Organization Address [facility] Co de Phone Number [facility] [address] [place] [phone], [facility] [phone] * C-reactive protein (CRP) (05/21/2018 9:23 PM EDT) C-Reactive Protein <0.3 0.0 - 1.0 mg/dL 05/21/2018 10:03 PM EDT [facility] Blood specimen (specimen) 05/21/2018 9:23 PM EDT 05/21/2018 9:29 PM EDT us Rajesh Hicks MD LAB BLOOD ORDERABLES Final Re sult Performing Organization Address [facility]/ZIP Co de Phone Number [facility] [address] [place] [phone], [facility] [phone] * MARTHA IFA SCREEN W/REFL TO TITER AND PATTERN, IFA (05/21/2018 9:23 PM EDT) MARTHA Negative Negative 05/22/2018 10:45 AM EDT [facility] Blood specimen (specimen) 05/21/2018 9:23 PM EDT 05/21/2018 9:29 PM EDT us Rajesh Hicks MD LAB BLOOD ORDERABLES Final Re sult [facility] [address] [place] [address], [facility] [phone] documented in this encounter Visit Diagnoses Diagnosis Fatigue Other malaise and fatigue documented in this encounter Additional Health Concerns [...] documented as of this encounter Care Teams Coding Team Lead Relationship Specialty Start Date End Date Liya Oreilly MD [address] [address] [place] [phone] PCP - General Internal Medicine 06/20/23 documented as of this encounter
--- OUTSIDE RECORDS SUMMARY | 2024-11-04 01:50 | XMS_ITS | Encounter Summary ---
Author Organization [facility] Address [address] [place] [address] Care Team Providers Care Subcontract Manager Name Role Phone Liya Oreilly MD Primary Care Provider [phone] Encounter Details Date Type Department Care Team (Late st Contact Info) Description 07/13/2016 Lab Requisition [facility] [address] [place] [address] Jenae Boucher MD [address] [place] [phone] Acute pharyngitis Social History Tobacco Use Types Packs/Day Years [...] Description 02/23/2025 9:45 AM EDT [facility] [place] [address] [place] [address] Liya Oreilly MD [address] [place] [phone] documented as of this encounter Procedures Procedure Name Priority Date/Time Associated Diagnosis Comments THROAT CULTURE (Q) Routine 07/12/2016 7: 30 PM EST Acute pharyngitis documented in this encounter Results * Throat culture (BH GH Q YH) (07/12/2016 7:30 PM EST) Throat Culture No Beta Hemolytic Streptococcus Gp A 07/15/2016 11:30 AM EST [facility] Specimen from throat (specimen) SPECIMEN FROM THROAT / Unknown 07/12/2016 7:30 PM EST 07/13/2016 10:39 AM EST us Jenae Boucher MD MICROBIOLOGY - GENERAL ORDERABL ES Final Result Performing Organization Address City/State/[facility] Co de Phone Number [facility] [address] [place] [phone], [facility] [phone] documented in this encounter Visit Diagnoses Diagnosis Acute pharyngitis documented in this encounter Additional [...] documented as of this encounter Care Teams Subcontract Manager Relationship Specialty Start Date End Date Liya Oreilly MD [address] [place] [address] PCP - General Internal Medicine 06/20/23 documented as of this encounter
--- OUTSIDE RECORDS SUMMARY | 2024-11-04 01:51 | XMS_ITS | Encounter Summary ---
Author Organization [facility] and [facility] Address [address] [place] [address] Care Team Providers Care Label Fuser Tender Name Role Phone Liya Oreilly MD Primary Care Provider [phone] Encounter Details Date Type Department Care Team (Late st Contact Info) Description 03/15/2023 Lab Requisition [facility] [address] [place] [address] Elva Gloria MD [address] [address] Encounter for screening for diseases of the blood and blood-forming organs and certain disorders involving the immune mechanism Social History Tobacco Use Types Packs/Day Years [...] AM EDT Office Visit [facility] [address] [place] [address] [place] [address] Liya Oreilly MD [address] [place] [address] documented as of this encounter Procedures Procedure Name Priority Date/Time Associated Diagnosis Comments SICKLE CELL SOLUBILITY TEST ( GH LMW Q YH) Routine 03/15/2023 8:08 PM EDT Encounter for screening for diseases of the blood and blood-forming organs and certain disorders involving the immune mechanism documented in this encounter Results * Sickle cell solubility test ( GH LMW Q YH) (03/15/2023 8:08 PM EDT) Sickle Cell Screen NEGATIVE Negative 03/20/2023 6:17 PM EDT [facility] Comment: Hemoglobin solubility testing alone is insufficient for detecting or confirming the presence of sickling hemoglobins in some situations. Additional testing may be required for diagnosis of hemoglobinopathies. For more information on this test, go to: http://education.[employer]/faq/KYF04d6 (This link is being provided for informational/ educational purposes only.) Test Performed at: [facility] [address] ??[phone] Ronnie Macias M.D., Ph.D.,Director of Laboratories Blood 03/15/2023 8:08 PM EDT 03/15/2023 8:15 PM EDT Elva Gloria MD LAB BLOOD ORDERABLES Fin al Result [facility] documented in this encounter Visit Diagnoses Diagnosis Encounter for screening for diseases of the blood and blood-forming organs and certain disorders involving the immune mechanism documented in this encounter Care Teams Label Fuser Tender Relationship Specialty Start Date End Date Liya Oreilly MD [address] [place] [address] PCP - General Internal Medicine 06/20/23 documented as of this encounter
--- OUTSIDE RECORDS SUMMARY | 2024-11-04 01:51 | XMS_ITS | Encounter Summary ---
Author Organization [facility] and [facility] Address [address] [place] [address] Care Team Providers Care Regional Sales Coordinator Name Role Phone Liya Oreilly MD Primary Care Provider [phone] Encounter Details Date Type Department Care Team (Late st Contact Info) Description 02/20/2022 Lab Requisition [facility] [address] [place] [address] Alisha Palomo APRN [address] [place] [address] Unspecified abdominal pain Social History Tobacco Use Types Packs/Day Years [...] AM EDT Office Visit [facility] [place] [address] [place] [address] [place], [place] [id number] Liya Oreilly MD [address] [place] [address] documented as of this encounter Procedures Procedure Name Priority Date/Time Associated Diagnosis Comments COMPREHENSIVE METABOLIC PANEL Routine 02/20/2022 8:02 PM EDT Unspecified abdominal pain CELIAC DISEASE COMPREHENSIVE PANEL (GH) Routine 02/20/2022 8:02 PM EDT Unspecified abdominal pain SEDIMENTATION RATE (ESR) Routine 02/20/2022 8:02 PM EDT Unspecified abdominal pain CBC WITH AUTO DIFFERENTIAL Routine 02/20/2022 8:02 PM EDT Unspecified abdominal pain TISSUE TRANSGLUTAMINASE, IGA Routine 02/20/2022 8:02 PM EDT Unspecified abdominal pain CBC AND DIFFERENTIAL Routine 02/20/2022 8:02 PM EDT Unspecified abdominal pain C-REACTIVE PROTEIN (CRP) Routine 02/20/2022 8:02 PM EDT Unspecified abdominal pain LIPASE Routine 02/20/2022 8:02 PM EDT Unspecified abdominal pain IMMUNOGLOBULIN A Routine 02/20/2022 8:02 PM EDT Unspecified abdominal pain AMYLASE Routine 02/20/2022 8:02 PM EDT Unspecified abdominal pain COMPREHENSIVE METABOLIC PANEL Routine 02/20/2022 8:02 PM EDT Unspecified abdominal pain documented in this encounter Results * Tissue transglutaminase, IgA (02/20/2022 8:02 PM EDT) Tissue Transglutaminase IgA Antibody <0.5 0.0-14.9 U/mL 02/21/2022 9:00 AM EDT [facility] Comment: Interpretation of Result: ?? <15 Antibody Not Detected ??>=15 Antibody Detected Blood 02/20/2022 8:02 PM EDT 02/20/2022 8:22 PM EDT Alisha Palomo ELECTRICIAN MACHINE [employer] LAB BLOOD ORDERABLES Final Re sult [facility] [address] [place] [address] * Immunoglobulin A (02/20/2022 8:02 PM EDT) Pathologist [facility] Immunoglobulin A 106 70 - 400 mg/dL 02/20/2022 9:03 PM EDT [facility] Blood 02/20/2022 8:02 PM EDT 02/20/2022 8:22 PM EDT Alisha Palomo ELECTRICIAN [employer]ACH[employer] LAB BLOOD ORDERABLES Final Re sult [facility] [address] [place] [address] * (ABNORMAL) CBC auto differential (02/20/2022 8:02 PM EDT) Pathologist [facility] WBC 5.7 4.9 - 9.7 x1000/??L 02/20/2022 8:27 PM [facility] RBC 4.92(H) 4.07 - 4.90 M/??L 02/20/2022 8:27 PM [facility] Hemoglobin 13.8 11.4 - 14.7 g/dL 02/20/2022 8:27 PM [facility] Hematocrit 43.30 35.30 - 44.10 % 02/20/2022 8:27 PM [facility] MCV 88.0 80.5 - 91.8 fL 02/20/2022 8:27 PM [facility] MCH 28.0 25.7 - 30.6 pg 02/20/2022 8:27 PM [facility] MCHC 31.9 31.4 - 34.1 g/dL 02/20/2022 8:27 PM [facility] RDW-CV 13.3 11.9 - 14.6 % 02/20/2022 8:27 PM [facility] Platelets 282 205 - 354 x1000/??L 02/20/2022 8:27 PM [facility] MPV 9.6 9.5 - 11.7 fL 02/20/2022 8:27 PM [facility] Neutrophils 47.9 43.2 - 66.9 % 02/20/2022 8:27 PM [facility] Lymphocytes 38.6 23.0 - 44.4 % 02/20/2022 8:27 PM [facility] Monocytes 6.2 5.8 - 10.3 % 02/20/2022 8:27 PM [facility] Eosinophils 6.2(H) 0.6 - 4.3 % 02/20/2022 8:27 PM [facility] Basophil 0.9 0.0 - 1.0 % 02/20/2022 8:27 PM [facility] Immature Granulocytes 0.2 0.1 - 0.4 % 02/20/2022 8:27 PM [facility] nRBC 0.0 0.0 - 1.0 % 02/20/2022 8:27 PM [facility] ANC(Abs Neutrophil Count) 2.72 2.24 - 5.93 x 1000/??L 02/20/2022 8:27 PM [facility] Absolute Lymphocyte Count 2.19 1.58 - 3.10 x 1000/??L 02/20/2022 8:27 PM [facility] Monocyte Absolute Count 0.35(L) 0.36 - 0.77 x 1000/??L 02/20/2022 8:27 PM [facility] Eosinophil Absolute Count 0.35(H) 0.04 - 0.31 x 1000/??L 02/20/2022 8:27 PM [facility] Basophil Absolute Count 0.05 0.02 - 0.06 x 1000/??L 02/20/2022 8:27 PM [facility] Absolute Immature Granulocyte Count 0.01 0.01 - 0.04 x 1000/??L 02/20/2022 8:27 PM [facility] Absolute nRBC 0.00 0.00 - 0.00 x 1000/??L 02/20/2022 8:27 PM [facility] Blood 02/20/2022 8:02 PM EDT 02/20/2022 8:22 PM EDT us Alisha Palomo ELECTRICIAN MACHINE [employer] LAB BLOOD ORDERABLES Final Re sult [facility] [address] [place] [address], [facility] [phone] * (ABNORMAL) Comprehensive metabolic panel (02/20/2022 8:02 PM EDT) Sodium 140 136 - 145 mmol/L 02/20/2022 8:49 PM [facility] Potassium 4.5 3.5 - 5.1 mmol/L 02/20/2022 8:49 PM [facility] Chloride 110 95 - 115 mmol/L 02/20/2022 8:49 PM [facility] CO2 26 21 - 32 mmol/L 02/20/2022 8:49 PM [facility] Anion Gap 4(L) 5 - 18 02/20/2022 8:49 PM [facility] Glucose 82 70 - 100 mg/dL 02/20/2022 8:49 PM [facility] BUN 10 8 - 25 mg/dL 02/20/2022 8:49 PM [facility] Creatinine 0.57 0.50 - 1.30 mg/dL 02/20/2022 8:49 PM [facility] Calcium 8.9 8.4 - 10.3 mg/dL 02/20/2022 8:49 PM [facility] BUN/Creatinine Ratio 17.5 8.0 - 25.0 01/28 8:49 PM [facility] Total Protein 6.9 6.4 - 8.2 g/dL 02/20/2022 8:49 PM [facility] Albumin 4.0 3.4 - 5.0 g/dL 02/20/2022 8:49 PM [facility] Total Bilirubin 0.3 0.0 - 1.0 mg/dL 02/20/2022 8:49 PM [facility] Comment:Use of this assay is not recommended for patients undergoing treatment with Eltrombopag due to the potential for falsely elevated results. Alkaline Phosphatase 72 50 - 335 U/L 02/20/2022 8:49 PM [facility] Alanine Aminotransferase (ALT) 21 12 - 78 U/L 02/20/2022 8:49 PM [facility] Aspartate Aminotransferase (AST) 17 5 - 37 U/L 02/20/2022 8:49 PM [facility] Globulin 2.9 g/dL 02/20/2022 8:49 PM [facility] A/G Ratio 1.4 02/20/2022 8:49 PM [facility] AST/ALT Ratio 0.8 See Comment 02/20/2022 8:49 PM [facility] Comment: Adult with mild elevations of transaminases (< 5 times upper limit of normal): AST/ALT > 2 suggests alcoholic liver injury AST/ALT < 1 suggests non-alcoholic fatty liver disease (NAFLD) [place] (healthy): AST/ALT can be > 3 on day 0 AST/ALT < 2 by day 5 The thresholds provided focus on the most common etiologies of elevated serum transaminase levels and the associated alteration of AST:ALT ratios; they are not intended to exclude other feasible and clinically appropriate possibilities eGFR (Afr Amer) 8:49 PM [facility] Comment:Calculation not chacho d for patients less than 18 years old eGFR (NON -[place]) 02/20/2022 8:49 PM [facility] Comment:Calculation not chacho d for patients less than 18 years old Osmolality Calculation 278 275 - 295 mOsm/kg 02/20/2022 8:49 PM EDT [facility] Blood 02/20/2022 8:02 PM EDT 02/20/2022 8:22 PM EDT Alisha Palomo ELECTRICIAN MACHINE [employer] LAB BLOOD ORDERABLES Final Re sult [facility] [address] [place] [address] * Lipase (02/20/2022 8:02 PM EDT) Lipase 148 73 - 393 U/L 02/20/2022 8:49 PM EDT [facility] Blood 02/20/2022 8:02 PM EDT 02/20/2022 8:22 PM EDT Alisha Palomo ELECTRICIAN MACHINE [employer] LAB BLOOD ORDERABLES Final Re sult Performing Organization Address [facility]/ZIP Co de Phone Number [facility] [address] [place] [address] * Sedimentation rate (ESR) (02/20/2022 8:02 PM EDT) Sedimentation Rate (ESR) 9 0 - 20 mm/hr 02/20/2022 9:01 PM EDT [facility] Blood 02/20/2022 8:02 PM EDT 02/20/2022 8:22 PM EDT Alisha Palomo ELECTRICIAN MACHINE [employer] LAB BLOOD ORDERABLES Final Re sult [facility] [address] [place] [address] * C-reactive protein (CRP) (02/20/2022 8:02 PM EDT) C-Reactive Protein <0.3 0.0 - 1.0 mg/dL 02/20/2022 9:03 PM EDT [facility] Blood 02/20/2022 8:02 PM EDT 02/20/2022 8:22 PM EDT Alisha Marshallgs ELECTRICIAN MACHINE [employer] LAB BLOOD ORDERABLES Final Re sult [facility] [address] [place] [address] * Amylase (02/20/2022 8:02 PM EDT) Amylase 44 25 - 115 U/L 02/20/2022 9:03 PM EDT [facility] Blood 02/20/2022 8:02 PM EDT 02/20/2022 8:22 PM EDT Alisha Palomo ELECTRICIAN MACHINE [employer] LAB BLOOD ORDERABLES Final Re sult [facility] [address] [place] [address] documented in this encounter Visit Diagnoses Diagnosis Unspecified abdominal pain documented in this encounter Care Teams Regional Sales Coordinator Relationship Specialty Start Date End Date Liya Oreilly MD [address] [facility] [address] [place] [address] PCP - General Internal Medicine 06/20/23 documented as of this encounter
--- OUTSIDE RECORDS SUMMARY | 2024-11-04 01:51 | XMS_ITS | Encounter Summary ---
Author Organization [facility] Address [address] [place] [address] Care Team Providers Care Gas Pumping Station Helper Name Role Phone Liya Oreilly MD Primary Care Provider [phone] Encounter Details Date Type Department Care Team (Latest Contact Info) Description 06/20/2023 Transcribed Orders [facility] [address] [place] [address] Liya Oreilly MD [address] [address] Arthralgia, unspecified joint (Primary Dx) Social History Tobacco Use Types [...] AM EDT Office Visit [facility] [place] [address] [place] [address] Liya Oreilly MD [address] [place] [address] documented as of this encounter Results * Lyme antibodies w/ rflx to confirm (modified two-tier testing) ([facility]) (06/20/2023 11:14 AM EST) Lyme Total Antibody Interpretation Negative Negative 06/21/2023 12:58 PM EST [facility] DEPARTMENT OF LABORATORY MEDICINE Lyme Ab 0.19 <=0.90 LI LI 06/21/2023 12:58 PM EST [facility] DEPARTMENT OF LABORATORY MEDICINE Blood Venipuncture / Unknown 06/20/2023 11:14 AM EST 06/20/2023 11:14 AM EST Narrative [facility] DEPARTMENT OF LABORATORY MEDICINE - 06/21/2023 12:58 PM EST Reference Interval: <=0.90 LI = Negative 0.91-1.09 LI = Equivocal (Indeterminate) >=1.10 LI = Positive The sample tested negative for antibodies to Borrelia burgdorferi, the causative agent of Lyme disease. Since an immune response to Lyme may not appear for several weeks following initial infection, a second sample collected 2-4 weeks after the first sample should be tested if clinically indicated. ??Serological confirmation of typical erythema migrans lesions is not necessary. An immune response may not be detected in some patients treated with antibiotics very early in infection. This assay detected IgG and IgM antibodies towards both VlsE1 and pepC10 antigens for improved sensitivity. Liya Oreilly MD LAB BLOOD ORDERABLES Junie l Result [facility] DEPARTMENT OF LABORATORY MEDICINE [address] [place] [address] documented in this encounter Visit Diagnoses Diagnosis Arthralgia, unspecified joint- Primary documented in this encounter Care Teams Gas Pumping Station Helper Relationship Specialty Start Date End Date Liya Oreilly MD [address] [place] [address] PCP - General Internal Medicine 06/20/23 documented as of this encounter
--- OUTSIDE RECORDS SUMMARY | 2024-11-04 01:51 | XMS_ITS | Data Portability ---
Author Organization [place] [facility], Main Office Address [address] [facility] [address] [place] [address] Assessment Encounter Date Assessment Date Assessment LastModified by Organization Details LastModified Time 02/20/2022 02/20/2022 Attending Attestation I have supervised and discussed the care of this patient with Alisha Palomo APRN and agree with the evaluation, diagnosis, medical decision making and the medical note below. Jenae Boucher M.D. [email or web address] Not available 02/20/2022 14:42:20 02/28/2022 02/28/2022 Attending Attestation I have supervised and discussed the care of this patient with Alisha Palomo APRN and agree with the evaluation, diagnosis, medical decision making and the medical note below. Jenae Boucher M.D. [email or web address] Not available 02/28/2022 14:21:52 03/01/2023 03/01/2023 DO NOT BILL, SELF - PAY Not available 03/01/2023 16:46:58 Plan of Treatment Reminders Order Date Submit Date Provider Last Modified By Organization Details Last Modified Time Details Appointments None recorded. Lab hemoglobin (Hb) electrophor esis, blood [address] - Lab, 5 [facility], [place], [address], 3 10:28:34 urinalysis, dipstick 2022 023 [email or web address] In-House Test, For Internal Use Only, Do Not Delete/merge, [id number] 3 16:11:33 hemoglobin (Hb), fingerstick , blood 2022 023 SHAY In-House Test, For Internal Use Only, Do Not Delete/merge, [id number] 3 16:34:02 allergy test, skin 2021 022 [email or web address] In-House Test, For Internal Use Only, Do Not Delete/merge, [id number] 09:04:19 CBC w/ auto diff 2021 022 SHAY In-House Test, For Internal Use Only, Do Not Delete/merge, [id number] 11:08:11 CMP, serum or plasma 2021 022 [email or web address] In-House Test, For Internal Use Only, Do Not Delete/merge, 11569 09:06:27 ESR (erythrocyt e sedimentati on rate), blood 2021 022 [email or web address] In-House Test, For Internal Use Only, Do Not Delete/merge, [id number] 09:06:27 C-reactive protein, quantitativ e, serum or plasma 2021 022 [email or web address] In-House Test, For Internal Use Only, Do Not Delete/merge, 46784 09:06:27 celiac disease comprehensi ve panel, serum 2021 022 In-House Test, For Internal Use Only, Do Not Delete/merge, [id number] 09:06:27 amylase + lipase, serum 2021 022 SHAY In-House Test, For Internal Use Only, Do Not Delete/merge, [id number] 15:28:01 hemoglobin, quantitativ e, transcutane ous 2021 022 [email or web address] In-House Test, For Internal Use Only, Do Not Delete/merge, [id number] 15:08:42 CBC w/ diff 12/28/ 2021 12/28/2 021 [email or web address] In-House Test, For Internal Use Only, Do Not Delete/merge, [id number] 09:04:26 Referral pediatric gastroenter ologist referral 2021 022 [email or web address] Not available 11:55:00 Procedures None recorded. Surgeries None recorded. Imaging US, chest wall 2021 022 [email or web address] Not available 09:05:31 Medication Orders None recorded. Patient TargetsNo targets recorded. Patient Instructions Encounter Date Encounter Id Patient Instructions Last Modified By Organization Details Last Modified Time 02/20/2022 [id number] hearing screening* Not availa ble 02/20/2022 15:08:42 visual acuity* [email or web address] Not available 0 02/20/2022 15:08:42 patient health questionnaire modified for adolescents* [email or web address] Not available 02/20/2022 15:08:42 CRAFFT, substanc e abuse screening for adolescents* [email or web address] Not available 02/20/2022 15:08:42 03/01/2023 [id number] hearing screening* Not availa ble 03/01/2023 16:11:33 CRAFFT, substanc e abuse screening for adolescents* [email or web address] Not available 03/08/2023 07:49:39 patient health questionnaire modified for adolescents* [email or web address] Not available 03/08/2023 07:49:39 Reason for Referral Pediatric Health Professional Referral for Abdominal pain Referring Physician: Alisha Palomo, Pediatric Medicine, Encounter Date: 02/28/2022 Results Created Date Observation Date Name Description Value Unit Range Abnormal Flag Note LastModifiedBy Organization Detail LastModifiedTime 07/26/20 21 07/26/2021 HEMOG LOBIN A1C results Not Available [facility] [address] [place] [address], [address], 07/26/2021 21:41:38 07/26/20 21 07/26/2021 HEMOG LOBIN A1C hemoglobin A1C 5.2 % see commen t [employer] can [employer] n, 2011 Diagn osis and Class ifica tion of Diabe tripp Melli tus: Hemog lobin A1c 5.7 - 6.4% - Incre ased risk for diabe tripp >= 6.5% - Diagn ostic of diabe tripp Not Available [facility] [address] [place], [address], 07/26/2021 21:41:38 07/26/20 21 07/26/2021 CBC WITH AUTO DIFFE RENTI AL results Not Available [facility] [address] [place], [address], 07/26/2021 21:42:09 07/26/20 21 07/26/2021 CBC WITH AUTO DIFFE RENTI AL white blood cell count 6.0 x1000 /uL 4.9-9. 7 Not Available [facility] [address] [place], [address], 07/26/2021 21:42:09 07/26/20 21 07/26/2021 CBC WITH AUTO DIFFE RENTI AL red blood cell count. 4.83 M/uL 4.07-4 .90 Not Available [facility] [address] [place], [address], 07/26/2021 21:42:09 07/26/20 21 07/26/2021 CBC WITH AUTO DIFFE RENTI AL hemoglobin 13.5 g/dL 11.4-1 4.7 Not Available [facility] [address] [place], [address], 07/26/2021 21:42:09 07/26/20 21 07/26/2021 CBC WITH AUTO DIFFE RENTI AL hematocrit (2 jun) 41.90 % 35.30- 44.10 Not Available [facility] [address] [place], [address], 07/26/2021 21:42:09 07/26/20 21 07/26/2021 CBC WITH AUTO DIFFE RENTI AL MCV 86.7 fL 80.5-9 1.8 Not Available [facility] [address] [place], [address], 07/26/2021 21:42:09 07/26/20 21 07/26/2021 CBC WITH AUTO DIFFE RENTI AL MCH (pg) 28.0 pg 25.7-3 0.6 Not Available [facility] [address] [place], [address], 07/26/2021 21:42:09 07/26/20 21 07/26/2021 CBC WITH AUTO DIFFE RENTI AL MCHC 32.2 g/dL 31.4-3 4.1 Not Available [facility] [address] [place], [address], 07/26/2021 21:42:09 07/26/20 21 07/26/2021 CBC WITH AUTO DIFFE RENTI AL RDW-CV 13.9 % 11.9-1 4.6 Not Available [facility] [address] [place], [address], 07/26/2021 21:42:09 07/26/20 21 07/26/2021 CBC WITH AUTO DIFFE RENTI AL platelets 226 x1000 /uL 205-35 4 Not Available [facility] [address] [place], [address], 07/26/2021 21:42:09 07/26/20 21 07/26/2021 CBC WITH AUTO DIFFE RENTI AL MPV 10.6 fL 9.5-11 .7 Not Available [facility] [address] [place], [address], 07/26/2021 21:42:09 07/26/20 21 07/26/2021 CBC WITH AUTO DIFFE RENTI AL neutrophils 73.0 % 43.2-6 6.9 high Not Available [facility] [address] [place], [address], 07/26/2021 21:42:09 07/26/20 21 07/26/2021 CBC WITH AUTO DIFFE RENTI AL lymphocytes 20.2 % 23.0-4 4.4 low Not Available [facility] [address] [place], [address], 07/26/2021 21:42:09 07/26/20 21 07/26/2021 CBC WITH AUTO DIFFE RENTI AL monocytes 5.0 % 5.8-10 .3 low Not Available [facility] [address] [place], [address], 07/26/2021 21:42:09 07/26/20 21 07/26/2021 CBC WITH AUTO DIFFE RENTI AL eosinophils 0.8 % 0.6-4. 3 Not Available [facility] [address] [place] [address], [address], 07/26/2021 21:42:09 07/26/20 21 07/26/2021 CBC WITH AUTO DIFFE RENTI AL basophils 0.7 % 0.0-1. 0 Not Available [facility] [address] [place] [address], [address], 07/26/2021 21:42:09 07/26/20 21 07/26/2021 CBC WITH AUTO DIFFE RENTI AL immature granulocytes 0.3 % 0.1-0. 4 Not Available [facility] [address] [place] [address], [address], 07/26/2021 21:42:09 07/26/20 21 07/26/2021 CBC WITH AUTO DIFFE RENTI AL nucleated red blood cells 0.0 % 0.0-1. 0 Not Available [facility] [address] [place] [address], [address], 07/26/2021 21:42:09 07/26/20 21 07/26/2021 CBC WITH AUTO DIFFE RENTI AL analyzer anc 4.34 x_100 0/uL 2.24-5 .93 Not Available [facility] [address] [place], [address], 07/26/2021 21:42:09 07/26/20 21 07/26/2021 CBC WITH AUTO DIFFE RENTI AL absolute lymphocyte count. 1.20 x_100 0/uL 1.58-3 .10 low Not Available [facility] [address] [place], [address], 07/26/2021 21:42:09 07/26/20 21 07/26/2021 CBC WITH AUTO DIFFE RENTI AL monocyte absolute count. 0.30 x_100 0/uL 0.36-0 .77 low Not Available [facility] [address] [place], [address], 07/26/2021 21:42:09 07/26/20 21 07/26/2021 CBC WITH AUTO DIFFE RENTI AL eosinophil absolute count. 0.05 x_100 0/uL 0.04-0 .31 Not Available [facility] [address] [place] [address], [address], 07/26/2021 21:42:09 07/26/20 21 07/26/2021 CBC WITH AUTO DIFFE RENTI AL basophil absolute count. 0.04 x_100 0/uL 0.02-0 .06 Not Available [facility] [address] [place], [address], 07/26/2021 21:42:09 07/26/20 21 07/26/2021 CBC WITH AUTO DIFFE RENTI AL absolute immature granulocytes . 0.02 x_100 0/uL 0.01-0 .04 Not Available [facility] [address] [place], [address], 07/26/2021 21:42:09 07/26/20 21 07/26/2021 CBC WITH AUTO DIFFE RENTI AL absolute NRBC (2 jun) 0.00 x_100 0/uL 0.00-0 .00 Not Available [facility] [address] [place] [address], [address], 07/26/2021 21:42:09 07/26/20 21 07/26/2021 SEDIM ENTAT ION RATE (ESR) results Not Available [facility] [address] [place] [address], [address], 07/26/2021 21:47:23 07/26/20 21 07/26/2021 SEDIM ENTAT ION RATE (ESR) sedimentatio n rate, erythrocyte 13 mm/HR 0-20 Not Available [facility] [address] [place] [address], [address], 07/26/2021 21:47:23 07/26/20 21 07/26/2021 TSH results Not Availabl e [facility] [address] [place] [address], [address], 07/26/2021 22:53:48 07/26/20 21 07/26/2021 TSH thyroid stimulating hormone 0.800 uIU/m L 0.600- 6.180 Not Available [facility] [address] [place] [address], [address], 07/26/2021 22:53:48 07/26/20 21 07/26/2021 T4, FREE results Not Available [facility] [address] [place] [address], [address], 07/26/2021 22:53:51 07/26/20 21 07/26/2021 T4, FREE free T4 0.80 NG/dL 0.76-1 .46 Not Available [facility] [address] [place] [address], [address], 07/26/2021 22:53:51 07/26/20 21 07/26/2021 COMPR EHENS GIOVANNA METAB OLIC PANEL results Not Available [facility] [address] [place], [address], 07/26/2021 22:53:52 07/26/20 21 07/26/2021 COMPR EHENS GIOVANNA METAB OLIC PANEL sodium 140 mmol/ L 136-14 5 Not Available [facility] [address] [place], [address], 07/26/2021 22:53:52 07/26/20 21 07/26/2021 COMPR EHENS GIOVANNA METAB OLIC PANEL potassium 4.4 mmol/ L 3.5-5. 1 Not Available [facility] [address] [place], [address], 07/26/2021 22:53:52 07/26/20 21 07/26/2021 COMPR EHENS GIOVANNA METAB OLIC PANEL chloride 106 mmol/ L 95-115 Not Available [facility] [address] [place] [address], [address], 07/26/2021 22:53:52 07/26/20 21 07/26/2021 COMPR EHENS GIOVANNA METAB OLIC PANEL CO2 27 mmol/ L 21-32 Not Available [facility] [address] [place] [address], [address], 07/26/2021 22:53:52 07/26/20 21 07/26/2021 COMPR EHENS GIOVANNA METAB OLIC PANEL anion gap 7 5-18 Not Available [facility] [address] [place], [address], 07/26/2021 22:53:52 07/26/20 21 07/26/2021 COMPR EHENS GIOVANNA METAB OLIC PANEL glucose 103 mg/dL 70-100 high Not Available [facility] [address] [place], [address], 07/26/2021 22:53:52 07/26/20 21 07/26/2021 COMPR EHENS GIOVANNA METAB OLIC PANEL blood urea nitrogen 11 mg/dL 8-25 Not Available [facility] [address] [place], [address], 07/26/2021 22:53:52 07/26/20 21 07/26/2021 COMPR EHENS GIOVANNA METAB OLIC PANEL creatinine 0.64 mg/dL 0.50-1 .30 Not Available [facility] [address] [place], [address], 07/26/2021 22:53:52 07/26/20 21 07/26/2021 COMPR EHENS GIOVANNA METAB OLIC PANEL calcium 8.8 mg/dL 8.4-10 .3 Not Available [facility] [address] [place] [address], [address], 07/26/2021 22:53:52 07/26/20 21 07/26/2021 COMPR EHENS GIOVANNA METAB OLIC PANEL BUN / creat ratio 17.2 8.0-25 .0 Not Available [facility] [address] [place], [address], 07/26/2021 22:53:52 07/26/20 21 07/26/2021 COMPR EHENS GIOVANNA METAB OLIC PANEL protein total 6.9 g/dL 6.4-8. 2 Not Available [facility] [address] [place], [address], 07/26/2021 22:53:52 07/26/20 21 07/26/2021 COMPR EHENS GIOVANNA METAB OLIC PANEL albumin 4.0 g/dL 3.4-5. 0 Not Available [facility] [address] [place], [address], 07/26/2021 22:53:52 07/26/20 21 07/26/2021 COMPR EHENS GIOVANNA METAB OLIC PANEL bilirubin total 0.5 mg/dL 0.0-1. 0 Use of this assay is not recom estrada d for patie nts under going treat ment with Eltro mbopa g due to the poten tial for false ly eleva omid resul ts. Not Available [facility] [address] [place] [address], [address], 07/26/2021 22:53:52 07/26/20 21 07/26/2021 COMPR EHENS GIOVANNA METAB OLIC PANEL alkaline phosphatase 82 U/L 50-335 Not Available [facility] [address] [place], [address], 07/26/2021 22:53:52 07/26/20 21 07/26/2021 COMPR EHENS GIOVANNA METAB OLIC PANEL alanine aminotransfe rase (ALT) 16 U/L 12-78 Not Available [facility] [address] [place] [address], [address], 07/26/2021 22:53:52 07/26/20 21 07/26/2021 COMPR EHENS GIOVANNA METAB OLIC PANEL aspartate aminotransfe rase (AST) 15 U/L 5-37 Not Available [facility] [address] [place] [address], [address], 07/26/2021 22:53:52 07/26/20 21 07/26/2021 COMPR EHENS GIOVANNA METAB OLIC PANEL globulin 2.9 g/dL Not Available [facility] [address] [place] [address], [address], 07/26/2021 22:53:52 07/26/20 21 07/26/2021 COMPR EHENS GIOVANNA METAB OLIC PANEL A/G ratio 1.4 Not Available [facility] [address] [place] [address], [address], 07/26/2021 22:53:52 07/26/20 21 07/26/2021 COMPR EHENS GIOVANNA METAB OLIC PANEL AST/ALT ratio 0.9 see commen t Adult with mild eleva tions of trans laron ses (< 5 times upper limit of wes l): AST/A LT > [address] alcoh olic liver injur y AST/A LT < [address] non-a lcoho lic fatty liver disea se (NAFL D) Fareed rn (heal thy): AST/A LT can be > 3 on day 0 AST/A LT < 2 by day 5 The thres holds provi ded focus on the most commo n etiol ogies of eleva omid serum trans laron se level s and the assoc iated alter ation of AST:A LT ratio s; they are not inten ded to exclu de other feasi ble and clini gallo appro priat e possi bilit ies Not Available [facility] [address] [place], [address], 07/26/2021 22:53:52 07/26/20 21 07/26/2021 COMPR EHENS GIOVANNA METAB OLIC PANEL eGFR (afr amer) Calcu latio n not valid for patie nts less than 18 years old Not Available [facility] [address] [place], [address], 07/26/2021 22:53:52 07/26/20 21 07/26/2021 COMPR EHENS GIOVANNA METAB OLIC PANEL eGFR (non ) Calcu latio n not valid for patie nts less than 18 years old Not Available [facility] [address] [place], [address], 07/26/2021 22:53:52 07/26/20 21 07/26/2021 COMPR EHENS GIOVANNA METAB OLIC PANEL osmolality calculation 279 mOsm/ kg 275-29 5 Not Available [facility] [address] [place], [address], 07/26/2021 22:53:52 07/26/20 21 07/26/2021 C-KIRSTY CTIVE PROTE IN (CRP) results Not Available [facility] [address] [place], [address], 07/26/2021 22:55:41 07/26/20 21 07/26/2021 C-KIRSYT CTIVE PROTE IN (CRP) C-reactive protein 0.5 mg/dL 0.0-1. 0 Not Available [facility] [address] [place] [address], [address], 07/26/2021 22:55:41 07/26/20 21 07/26/2021 OSCAR TIN results Not Available [facility] [address] [place] [address], [address], 07/26/2021 22:55:43 07/26/20 21 07/26/2021 OSCAR TIN ferritin 23 NG/mL 8-252 Not Available [facility] [address] [place] [address], [address], 07/26/2021 22:55:43 07/26/20 21 07/26/2021 IRON AND TIBC results Not Available [facility] [address] [place] [address], [address], 07/26/2021 22:55:43 07/26/20 21 07/26/2021 IRON AND TIBC iron 70 ug/dL 40-150 Not Available [facility] [address] [place] [address], [address], 07/26/2021 22:55:43 07/26/20 21 07/26/2021 IRON AND TIBC total iron binding capacity ([facility] lm) 370 ug/dL 250-45 0 Not Available [facility] [address] [place] [address], [address], 07/26/2021 22:55:43 07/26/20 21 07/26/2021 IRON AND TIBC iron saturation ([facility]ct [facility] lm) 19 % 11-[address] [facility] [address] [place] [address], [address], 07/26/2021 22:55:43 07/26/20 21 07/26/2021 VITAM IN B12 results Not Available [facility] [address] [place] [address], 90[address], 07/26/2021 22:55:44 07/26/20 21 07/26/2021 VITAM IN B12 vitamin B12 365 pg/mL 211-91 1 Not Available [facility] [address] [place] [address], [address], 07/26/2021 22:55:44 07/26/20 21 07/26/2021 HETER OPHIL E ANTIB JAMIR (MONO SPOT) ( GH L LMW YH) results Not Available [facility] [address] [place] [address], 44[address], 07/26/2021 23:37:34 07/26/20 21 07/26/2021 HETER OPHIL E ANTIB JAMIR (MONO SPOT) (BH GH L LMW YH) heterophile antibodies Negati ve negati ve Not Available [facility] [address] [place] [address], [address], 07/26/2021 23:37:34 07/26/20 21 07/26/2021 EPSTE IN-BA RR VIRUS VCA, IGG (GH L Q) results Not Available [facility] [address] [place] [address], 64[address], 07/28/2021 09:09:56 07/26/20 21 07/26/2021 EPSTE IN-BA RR VIRUS VCA, IGG (GH L Q) gh ludwig-ayala vca IgG initial result 3.2 ai <0.8 high Not Available [facility] [address] [place] [address], 756[address], 07/28/2021 09:09:56 07/26/20 21 07/26/2021 EPSTE INSIERRA [place] RR VIRUS VCA, IGG (GH L Q) gh ludwig-ayala vca IgG Positi ve negati ve abnormal Not Available [facility] [address] [place] [address], [address], 07/28/2021 09:09:56 07/26/20 21 07/26/2021 EPSTE [place] RR VIRUS NUCLE AR ANTIG EN ANTIB JAMIR, IGG (GH L) results Not Available [facility] [address] [place] [address], 842[address], 07/28/2021 09:09:57 07/26/20 21 07/26/2021 EPSTE [place] RR VIRUS NUCLE AR ANTIG EN ANTIB JAMIR, IGG (GH L) ebv nuclear antigen Ab initial result >8.0 ai <0.8 high Not Available [facility] [address] [place] [address], 40[address], 07/28/2021 09:09:57 07/26/20 21 07/26/2021 EPSTE [place] RR VIRUS NUCLE AR ANTIG EN ANTIB JAMIR, IGG (GH L) gh ebv nuclear antigen Ab Positi ve negati ve abnormal Not Available [facility] [address] [place] [address], [address]39, 07/28/2021 09:09:57 07/26/20 21 07/26/2021 EPSTE [place] RR VIRUS EARLY ANTIG EN ANTIB JAMIR, IGG (GH L LMW Q) results Not Available [facility] [address] [place] [address], 83643, 07/28/2021 09:09:58 07/26/20 21 07/26/2021 EPSTE [place] RR VIRUS EARLY ANTIG EN ANTIB JAMIR, IGG (GH L LMW Q) ebv early antigen antibody initial result <0.2 <0.8 Not Available [facility] [address] [place] [address], 023[address], 07/28/2021 09:09:58 07/26/20 21 07/26/2021 EPSTE IN-BA RR VIRUS EARLY ANTIG EN ANTIB JAMIR, IGG (GH L LMW Q) gh early antigen antibody, IgG Negati ve negati ve Not Available [facility] [address] [place] [address], 43329, 07/28/2021 09:09:58 07/26/20 21 07/26/2021 VITAM IN D, 25-HY DROXY results Not Available [facility] [address] [place] [address], 378[address], 07/28/2021 10:08:04 07/26/20 21 07/26/2021 VITAM IN D, 25-HY DROXY vitamin D 25-hydroxy total 27 NG/mL 20-50 Not Available [facility] [address] [place] [address], 24[address], 07/28/2021 10:08:04 07/26/20 21 07/26/2021 LYME ANTIB ODIES W/ REFLE X TO CONFI RMATI ON ( GH LMW YH) results Not Available [facility] [address] [place] [address], 20594, 07/28/2021 10:16:46 07/26/20 21 07/26/2021 LYME ANTIB ODIES W/ REFLE X TO CONFI RMATI ON ( GH LMW YH) lyme antibody 0.05 0.00-0 .89 index INTER PRETA TION: ----- ----- ----- - <0.90 Index = Negat giovanna 0.90- 1.09 Index = Equiv ocal >=1.1 0 Index = Posit giovanna The prese nce of IgG/I gM antib odies is an indic ation of expos ure to Borre oly organ ism. A singl e speci men can only be use to estim ate the serol ogica l statu s of the indiv idual . Absen ce of antib jamir might not rule out lyme disea se when clini natanael sympt oms are prese nt. A small perce ntage of false negti ve and false posit giovanna resul ts can be expec omid with all serol ogic scree nay tests , espec ially early in the disea se proce ss. Repea t testi ng after a 7 to 10 day inter kayy reduc es the false negat giovanna rate in clini gallo suspe ct cases . Refle x testi ng by Ramakrishna rn Blot reduc es the false posit giovanna rate. Not Available [address], [address], 07/28/2021 10:16:46 07/26/20 21 07/26/2021 MARTHA IFA SCREE N W/REF L TO TITER AND PATTE RN, IFA results Not Available [address], [address], 07/28/2021 11:59:54 07/26/20 21 07/26/2021 MARTHA IFA SCREE N W/REF L TO TITER AND PATTE RN, IFA anti-nuclear antibody (MARTHA) Negati ve negati ve Speci men teste d using a HEp-2 indir ect immun ofluo resce nt assay . Not Available [address], [address], 07/28/2021 11:59:54 07/26/20 21 07/26/2021 EPSTE IN-BA RR VIRUS VCA, IGM (GH L Q) results Not Available [address], [address], 08/08/2021 19:48:32 07/26/20 21 07/26/2021 EPSTE IN-BA RR VIRUS VCA, IGM (GH L Q) gh ludwig-ayala vca IgM initial result 0.8 ai <0.8 Not Available [facility] [address] [place] [address], [address], 08/08/2021 19:48:32 07/26/20 21 07/26/2021 EPSTE IN-BA RR VIRUS VCA, IGM (GH L Q) gh ludwig-ayala vca IgM Negati ve negati ve Not Available [facility] [address] [place] [address], [address], 08/08/2021 19:48:32 02/21/20 22 02/20/2022 heari ng scree nay* Unknown Analyte normal Not Available In-[facility] Test For Internal Use Only, Do Not Delete/merge, 02/20/2022 14:04:57 02/21/20 22 02/20/2022 heari ng scree nay* Unknown Analyte normal Not Available In-[facility]fred [facility] Test For Internal Use Only, Do Not Delete/merge, 02/20/2022 14:04:57 02/21/20 22 02/20/2022 heari ng scree nay* Unknown Analyte normal Not Available In-Alfred se Test For Internal Use Only, Do Not Delete/merge, 02/20/2022 14:04:57 02/21/20 22 02/20/2022 heari ng scree nay* Unknown Analyte normal Not Available In-Alfred se Test For Internal Use Only, Do Not Delete/merge, 02/20/2022 14:04:57 02/21/20 22 02/20/2022 heari ng scree nay* Unknown Analyte normal Not Available In-Alfred se Test For Internal Use Only, Do Not Delete/merge, 02/20/2022 14:04:57 02/21/20 22 02/20/2022 heari ng scree nay* Unknown Analyte normal Not Available In-Alfred se Test For Internal Use Only, Do Not Delete/merge, 02/20/2022 14:04:57 02/21/20 22 02/20/2022 visua l acuit y* R Eye Uncorrected 20/ Not Available In-H ouse Test For Internal Use Only, Do Not Delete/merge, 02/20/2022 14:04:58 02/21/20 22 02/20/2022 visua l acuit y* L Eye Uncorrected Not Available In-H ouse Test For Internal Use Only, Do Not Delete/merge, 02/20/2022 14:04:58 02/21/20 22 02/20/2022 hemog lobin , quant itati ve, trans cutan eous hgb transcutaneo us 11.4 Not Available In-Alfred [facility] Test For Internal Use Only, Do Not Delete/merge, 02/20/2022 14:04:57 03/01/20 23 03/01/2023 hemog lobin (Hb), finge rstic k, blood hgb 12.3 Not Available In-House T est For Internal Use Only, Do Not Delete/merge, 03/01/2023 15:42:29 03/01/20 23 03/01/2023 urina lysis , dipst ick Leukocytes Negati ve Not Available In-House Te st For Internal Use Only, Do Not Delete/merge, 03/01/2023 15:42:28 03/01/20 23 03/01/2023 urina lysis , dipst ick Nitrite negati ve Not Available In-House Te st For Internal Use Only, Do Not Delete/merge, 03/01/2023 15:42:28 03/01/20 23 03/01/2023 urina lysis , dipst ick Protein Negati ve Not Available In-House Te st For Internal Use Only, Do Not Delete/merge, 03/01/2023 15:42:28 03/01/20 23 03/01/2023 urina lysis , dipst ick pH 6.0 Not Available In-House T est For Internal Use Only, Do Not Delete/merge, 03/01/2023 15:42:28 03/01/20 23 03/01/2023 urina lysis , dipst ick Blood Large Not Available In-House T est For Internal Use Only, Do Not Delete/merge, 03/01/2023 15:42:28 03/01/20 23 03/01/2023 urina lysis , dipst ick Specific [place] 1.005 Not Available In-Alfred se Test For Internal Use Only, Do Not Delete/merge, 03/01/2023 15:42:28 03/01/20 23 03/01/2023 urina lysis , dipst ick Ketone Negati ve Not Available In-House Te st For Internal Use Only, Do Not Delete/merge, 03/01/2023 15:42:28 03/01/20 23 03/01/2023 urina lysis , dipst ick Bilirubin Negati ve Not Available In-House Te st For Internal Use Only, Do Not Delete/merge, 03/01/2023 15:42:28 03/01/20 23 03/01/2023 urina lysis , dipst ick Glucose Negati ve Not Available In-House Te st For Internal Use Only, Do Not Delete/merge, 03/01/2023 15:42:28 03/01/20 23 03/01/2023 urina lysis , dipst ick Appearance Clear Not Available In-Hous e Test For Internal Use Only, Do Not Delete/merge, 03/01/2023 15:42:28 03/01/20 23 03/01/2023 urina lysis , dipst ick Color Yellow Not Available In-House T est For Internal Use Only, Do Not Delete/merge, 03/01/2023 15:42:28 03/01/20 23 03/01/2023 heari ng scree nay* Unknown Analyte normal Not Available In-Alfred se Test For Internal Use Only, Do Not Delete/merge, 03/01/2023 15:42:29 03/01/20 23 03/01/2023 heari ng scree nay* Unknown Analyte normal Not Available In-Alfred se Test For Internal Use Only, Do Not Delete/merge, 03/01/2023 15:42:29 03/01/20 23 03/01/2023 heari ng scree nay* Unknown Analyte normal Not Available In-Lafred se Test For Internal Use Only, Do Not Delete/merge, 03/01/2023 15:42:29 03/01/20 23 03/01/2023 heari ng scree nay* Unknown Analyte normal Not Available In-Alfred se Test For Internal Use Only, Do Not Delete/merge, 03/01/2023 15:42:29 03/01/20 23 03/01/2023 heari ng scree nya* Unknown Analyte normal Not Available In-Alfred se Test For Internal Use Only, Do Not Delete/merge, [id number] 03/01/2023 15:42:29 03/01/20 23 03/01/2023 heari ng scree nay* Unknown Analyte normal Not Available In-Alfred se Test For Internal Use Only, Do Not Delete/merge, [id number] 03/01/2023 15:42:29 03/15/20 23 03/15/2023 SICKL E CELL SOLUB ILITY TEST ([facility]) results Not Available [facility] [address] [place] [address], [address], 03/20/2023 18:29:49 03/15/20 23 03/15/2023 SICKL E CELL SOLUB ILITY TEST ([facility]) sickle cell screen NEGATI VE negati ve Hemog lobin solub ility testi ng alone is insuf ficie nt for detec ting or confi rming the prese nce of sickl ing hemog lobin s in some situa tions . Addit ional testi ng may be requi red for diagn osis of hemog lobin opath ies. For more infor nicholas valles on this test, go to: http: //[facility] kelsea valles.que stdia gnost ics.c om/fa q/FAQ 99v1 (This link is being provi ded for infor nicholas burk/ educa jony l purpo ses only. ) Test Perfo rmed at: [facility] [address] [place] [address] Linda Macias M.D., Ph.D. ,Dire ctor of Labor atori es Not Available [facility] [address] [place], [address], 03/20/2023 18:29:49 Result Notes None recorded. 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 morales. also sees therapist . takes melatonin qhs. [facility] 1 12:00:40 Tachycar marianna 5888859 Active [address] michaels. plans to do an exercise stress test. 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 Followed by Dr Carmine PRICE MD [address] [place] [address], [address] [place] [address] 6, [facility] 3 17:15:50 Notes:on OCP menarche january 28. Problem Notes None recorded. Medical Equipment None Reported. Allergies No known drug allergies Medications Name Sig Start Date Stop Date Status Note LastModified by Organization Details LastModified Time azithromycin 250 mg tablet take 2 tablets on day 1, then 1 tablet daily on days 2-5 active Not Available Not Available No t Available meloxicam 15 mg tablet TAKE 1 TABLET BY MOUTH EVERY DAY WITH FOOD active Not Available Not Available No t Available sertraline 100 mg tablet TAKE 1 TABLET BY MOUTH EVERY DAY active Not Available Not Available No t Available amoxicillin 875 mg tablet active Not Available Not Available Not Available cephalexin 500 mg capsule active Not Available Not Available Not Available erythromycin 5 mg/gram (0.5 %) eye ointment active Not Available Not Available Not Available sertraline 25 mg tablet TAKE 1 TABLET BY MOUTH EVERY DAY active Not Available Not Available No t Available amoxicillin 400 mg/5 mL oral suspension Take 10 mL twice a day by oral route after meals for 10 days. 2015 active Not Available Not Available Not Avai lable mupirocin 2 % topical ointment Apply 1 application twice a day by topical route for 14 days. active Not Available Not Available No t Available amoxicillin 875 mg-potassium clavulanate 125 mg tablet Take 1 tablet twice a day by oral route after meals for 10 days. active Not Available Not Available No t Available buspirone 15 mg tablet TAKE 1 TABLET BY MOUTH TWICE A DAY active Not Available Not Available No t Available 08/18 (28) 1 mg-20 mcg (21)/75 mg (7) tablet TAKE 1 TABLET BY MOUTH EVERY DAY active Not Available Not Available No t Available Flovent HFA 110 mcg/actuatio n aerosol inhaler Inhale 2 puffs every 12 hours by inhalation route. active Not Available Not Available No t Available ProAir HFA 90 mcg/actuatio n aerosol inhaler Inhale 2 micrograms 4 times a day by inhalation route as needed. active Not Available Not Available No t Available Vitals Date Recorded Oxygen saturation Oxygen saturation in Arterial blood by Pulse oximetry Heart rate Systolic blood pressure Diastolic blood pressure Provider Name and Address Organization Details Last Updated DateTime 1 98 % 98 % 121 /min 118 mm[Hg] 58 mm[Hg] Yeny Yeung CT - [facility] 1 13:59:44 Date Recorded Body weight Body mass index (BMI) Body mass index (BMI) Percentile per age and sex Body height Oxygen saturation Oxygen saturation in Arterial blood by Pulse oximetry Heart rate Systolic blood pressure Diastolic blood pressure Provider Name and Address Organization Details Last Updated DateTime 2 68991.4 9 g 23.4 kg/m2 74 % 168.28 cm 99 % 99 % 83 /min 98 mm[Hg] 60 mm[Hg] Yeny Yeung [facility] 2 14:10:05 Date Recorded Body weight Body mass index (BMI) Percentile per age and sex Body mass index (BMI) Body height Oxygen saturation Oxygen saturation in Arterial blood by Pulse oximetry Heart rate Systolic blood pressure Diastolic blood pressure Provider Name and Address Organization Details Last Updated DateTime 3 79918.7 8 g 82 % 25.2 kg/m2 169.67 cm 98 % 98 % 92 /min 102 mm[Hg] 66 mm[Hg] Jessica Eduardo [facility] 3 15:43:17 Social History None recorded. Functional Status None recorded. Mental Status None recorded. Family History Nothing Reported. Medical History No medical history recorded. Gynecological HistoryNo gynecological history recorded. Obstetrics History GPAL:G 0 P 0 0 0 0 Immunizations Vaccine Type Date Status Note Provider Nam e and Address Organization Details Recorded Time HPV9 7 completed Not Available [facility] 08/16/2019 02:28:33 meningococcal B, recombinant 9 completed Not Available [facility] 08/16/2019 02:28:30 meningococcal B, recombinant 0 completed jazmyne colon, [facility] 03/08/2020 16:59:47 Influenza, split virus, quadrivalent, PF 0 completed jazmyne saleheras isaiah, [facility] 07/02/2020 19:42:37 meningococcal MCV4P 1 completed Mishel colon, [facility] 01/24/2021 12:41:37 Tdap 1 completed Mishel Novak null, [facility] 01/24/2021 12:41:37 meningococcal MCV4P 6 completed Not Available [facility] 08/16/2019 02:28:25 HPV9 6 completed Not Available [facility] 08/16/2019 02:28:33 Tdap 6 completed Not Available [facility] 08/16/2019 02:28:24 Hib (PRP-T) 6 completed Katya Guzmana null, [facility] 03/02/2015 09:18:24 DTaP 0 completed Katya Barberiza null, [facility] 03/02/2015 09:18:24 Hep B, adolescent or pediatric 6 completed Katya Guiza null, [facility] 03/02/2015 09:18:24 Hep B, adolescent or pediatric 6 completed Katya Barberiza null, [facility] 03/02/2015 09:18:24 Hep B, adolescent or pediatric 5 completed Katya Guiza null, [facility] 03/02/2015 09:18:24 Pneumococcal conjugate PCV 13 5 completed Katya Guiza null, [facility] 03/02/2015 09:18:24 DTaP 6 completed Katya Guiza null, [facility] 03/02/2015 09:18:24 WPuY-Nvs-DRR 5 completed Katya Guiza null, [facility] 03/02/2015 09:18:24 IPV 0 completed Katya Guiza null, [facility] 03/02/2015 09:18:24 Pneumococcal conjugate PCV 13 5 completed Katya Guiza null, [facility] 03/02/2015 09:18:24 Pneumococcal conjugate PCV 13 5 completed Katya Guiza null, [facility] 03/02/2015 09:18:24 Pneumococcal conjugate PCV 13 6 completed Katya Guiza null, [facility] 03/02/2015 09:18:24 IPV 6 completed Katya Guiza null, [facility] 03/02/2015 09:18:24 UAtY-Rmb-TTP 5 completed Katya Romeo null, [facility] 03/02/2015 09:18:24 Hib (PRP-T) 5 completed Katya Romeo null, [facility] 03/02/2015 09:18:24 DTaP 5 completed Katya Romeo null, [facility] 03/02/2015 09:18:24 MMRV 0 completed Katya Romeo null, [facility] 03/02/2015 09:37:21 Influenza, split virus, quadrivalent, preservative 7 completed Katya Romeo null, [facility] 03/02/2015 09:37:21 Hep A, ped/adol, 2 dose 8 completed Katya Romeo null, [facility] 03/02/2015 09:37:21 MMRV 6 completed Katya Romeo null, [facility] 03/02/2015 09:37:21 Hep A, ped/adol, 2 dose 7 completed Katya Romeo null, [facility] 03/02/2015 09:37:21 Influenza, split virus, quadrivalent, preservative 0 completed Katya Romeo [facility], [facility] 03/02/2015 09:37:21 Past Encounters Encounter ID Performer Location Encounter Start Date Encounter Closed Date Diagnosis/Indication Diagnosis SNOMED-CT Code Diagnosis ICD10 Code Diagnosis Note [id number] Jenae Boucher Main Office [address] [facility] [address] [address] 02/02/2016 16:03:39 02/02/2016 17:25:43 Well child 394291902 Z00.129 [id number] Rajesh Hicks Main Office [address] [facility] [address] [address] 02/21/2016 10:43:10 02/21/2016 17:44:01 Acute bacterial bronchitis 675291010 J20.9 Prolonged cough, previously dry and now somewhat wet, lung exam reassuring , concern for acute bacterial bronchitis . -prescribe d standard z-pack -return precaution s reviewed [id number] Jenae [employer]ident Gifts Main Office [address] [place] [address] 04/12/2016 18:57:54 04/13/2016 10:09:52 Streptococcal sore throat 36560547 J02.0 QS+ Injury of finger 4007987 8 S69.81XA R 5th digit w/ edema, echymosis and significan t point tenderness at DIP joint. referred to [facility] for xray and eval. [id number] Rajesh Hicks Main Office [address] [address] 04/15/2016 09:56:29 04/15/2016 10:22:51 Streptococcal sore throat 59738977 J02.0 Continued concern for strep now potentiall y resistant to current course of amox.-prov ided azithromyc in at standard adult dosing-ret urn precaution s reviewed [id number] Jenae [employer] Main Office [address] [place] [address] 04/28/2016 13:49:44 04/28/2016 14:42:31 Acute pharyngitis 333201648 J02.9 QS faint +. started feb but sent out cx. Reactive a irway disease 0940861968 06 J45.909 first episode. pt describes chest tightnesss , shortness of breath, spirometry demonstrat es RAD. ihhaler demo done. recheck next week. Fatigue 92838103 R53.83 [id number] Jenae [employer] Main Office [address] [place] [address] 05/02/2016 15:42:45 05/02/2016 19:11:35 Chronic cough 90745492 R05 see below. cough is not severe. Asthma 879885025 J45.90 9 pt unable to do proper technique for spirometry . FEV1 65 % but when I went to watch her do repeat testing, pt could not do test properly and therefore it is unclear whether chronic cough is due to asthma will cont flovent bid and alb tid until cough resolves to be on safe side. Streptococ natanael sore throat 17368776 J02.0 QS neg today and tcx from last week is now neg. can d/c abx which are hurting her tummy. 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 no HSM. has had illness for close to 3 weeks. pt tired but not severely so. can go to school and do sports as tolerated once finger fracture is cleared by ortho fani this week. wrote note for school. 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 Was at the onset of symptoms diagnosed with mono but more recent bloodwork reveals no liver involvemen t. She in general has had substantia l improvemen t in her energy level suggesting that is significan t mono component is not a major cause of her persisting discomfort . The pain she describes is more of a nausea and given its location raises concern for possible NATHALY as the discomfort is often mildly settled by eating, perhaps suggestive of ulceration . Outside of this, there is a very distinct and reproducib le general improvemen t in her discomfort on the weekends compared to during the week suggesting a potential anxiety component as an exacerbati ng factor. Lastly, here recent bloodwork included normal thyroid and B vitamin levels. Her diet is not rich in animal protein. >25 minute visit with >50% devoted to counseling .-begin daily multivitam in-begin prilosec 20mg daily x4-6 weeks-gt kan precaution s reviewed [id number] Jenae Sander Main Office [address] [place] [address] 07/12/2016 18:14:42 07/12/2016 19:27:27 Pharyngitis 127592015 J02.9 QS neg. TCX sent. pharyngiti s on exam. sx < 24 hours at time of testing. f/u for repeat testing if sxs worsen or persist. Viral syndrome 081178141 B34.[id number] [address] 07/17/2016 12:12:52 07/17/2016 14:06:12 Acute otitis media 1705311 H66.91 Right TM with mild bulge and cloudy effusion. Mom prefers to watch for now and is interested in applying olive oil to the ear canal.-artem chful waiting for now-rechec k in 1 week Cervical lymphadenopathy 128184967 R59.0 Small tender anterior right cervical LN in the setting of an abnormal right TM suggestive of reactive LN.-signs concerning for lymphadeni tis or lymphangit is reviewed-t ylenol/mot rin prn discomfort -return precaution s reviewed [id number] [address] 08/10/2016 15:18:40 08/10/2016 15:37:43 Acute otitis media 7907271 H66.91 Exam concerning for AOM, L>>R. -prescribe d 10 day course of augmentin as below -tylenol/m otrin for discomfort -return precaution s reviewed -RTC in 10 days for recheck [id number] [address] 08/14/2016 09:56:26 08/14/2016 10:20:54 Laceration of finger 293698232 S61.210A Sustained jagged laceration of the right third fingertip while using a sewing machine earlier today. Laceration is roughly 0.5cm in length with edges nearly approximat ed naturally and appears to include only the epidermis. Wound was syringe irrigated with copious sterile water and wound edges brought into closer approximat ion with a steri-stri p.-reviewe d signs concerning for wound infection- gently apply topical antibiotic cream daily x7 days Acute otitis media 97022 03 H66.91 Prior concern for AOM, L>>R. Today appears to have resolved on right and is substantia lly improved and nearly resolved on left.-comp lete 10 day course of augmentin as previously prescribed -tylenol/m otrin for discomfort -return precaution s reviewed -RTC at end of course [id number] [facility] Main Office [address] [address] 02/23/2017 14:47:56 02/23/2017 16:08:03 Well child 905332508 Z00.129 normal growth and developmen tHPV#2 today (series complete)c holesterol and VitD [id number] Rajesh Fabiola Main Office 117[facility] [address] [address] 11/12/2017 17:29:13 11/12/2017 18:53:12 Skin lesion 29825453 L98.9 Right mid abdomen with roughly 3mm diameter soft mobile lesion that feels to be in the subcutaneo us layer underlying a hair follicle, stable for the past few months, most suggestive of a sterile cyst or lipoma.-wa rm compress TID for a few days-if persisting and bothersome could consider ultrasound and/or surgical consult [id number] [facility] Main Office 117[facility] [address] [address] 02/26/2018 14:26:47 02/26/2018 15:34:51 Well child 424309427 Z00.129 normal growth and developmen twill likely attend boarding school next school year menarche last year vaccinatio ns UTD [id number] [facility] Main Office [address] [place] [address] [address] [address] 05/21/2018 18:12:23 05/21/2018 19:20:11 Fatigue 40948473 R53.83 Decreasing rowing endurance for the past 2-3 weeks not adequately explained by concurrent mild URI.-blood drawn for CBC-d, CMP, TSH/fT4, lyme, mono, MARTHA-will f/u with results [id number] Jenae Boucher Main Office 117[facility] [address] [address] 03/04/2019 13:49:18 03/04/2019 15:17:57 Well child 111313630 Z00.129 Z68.53 Accessory nipple 6156863 7 Q83.3 R abdomen. is so tiny it is diffiicult to tell but it looks like one under magnificat ion and underneath is a 1/2 cm mass which is likely a tiny breast bud. will have derm look to confirm dx in case this is a small cyst or lipoma that is causing a tiny dimple in the overlying skin. Melanocytic nevus 793881 001 D22.9 R breast- referred to derm for body check [id number] Alberta Wei Main Office [address] [address] 03/15/2019 11:06:15 03/17/2019 08:42:26 Wound of skin 547476612 T14.8XXD [id number] Jenae Boucher Main Office [address] [address] 03/08/2020 16:05:00 03/08/2020 16:58:27 Well child 732943890 Z00.129 Z68.52 Anxiety 10171320 F41.9 improved on sertraline . does talk therapy as well. DR. Morales. [id number] Jenae Boucher Main Office [address] [place] [address] 03/25/2020 11:04:34 03/25/2020 12:08:06 Tachycardia 3734118 R00.0 [id number] jazmyne castellon Main Office [address] [address] 07/02/2020 15:48:14 07/02/2020 19:45:18 Active or passive immunization 086856101 Z23 [id number] DANTE ZUÑIGA NP Main Office [address] [place] [address] 08/19/2020 11:55:07 08/19/2020 12:14:25 Exposure to SARS-CoV-2 174628802 Z20.828 Pt is returning to school and needs PCR clearance prior. Pt is currently asymptomat ic with no known exposures. Discussed turn around time with mom. PCR swab obtained and sent to [facility]. WIll call with results. [id number] dale hancock Main Office [address] [facility] [address] [address] 11/29/2020 15:59:36 11/29/2020 16:06:57 Exposure to SARS-CoV-2 778524292 Z20.828 Pt with positive exposure at boarding school. Currently asymptomat ic at this time. PCR swab collected in the car without incident, will follow up with results. [id number] Nitin white i Main Office [address] [facility] [address] [address] 12/01/2020 15:14:34 12/01/2020 15:35:08 Exposure to SARS-CoV-2 098490264 Z20.828 Pt is returning to school and needs PCR clearance prior. Pt is currently asymptomat ic with no known exposures. Discussed turn around time with mom. PCR swab obtained and sent to [facility]. WIll call with results. [id number] [facility], [address],[place] [address] [place] [address] 12/06/2020 16:28:57 12/06/2020 16:38:28 Exposure to SARS-CoV-2 935535369 Z20.828 Pt is returning to school and needs PCR clearance prior. Pt is currently asymptomat ic with no known exposures. Discussed turn around time with mom. PCR swab obtained and sent to [facility]. WIll call with results. [id number] Jenae Boucher Main Office [facility] [facility] [address] [address] 01/24/2021 11:37:30 01/24/2021 12:47:18 Well child 768761472 Z00.129 Z68.51 Z68.52 Anxiety 98888484 F41.9 improved on sertraline . does talk therapy as well. DR. Morales. Melanocytic nevus 898399 001 D22.9 a couple of small normal looking nevi. reassured. [id number] [facility], [place] [address] [place] [address] [place] [address] 03/30/2021 14:03:40 03/30/2021 14:25:56 Exposure to SARS-CoV-2 299678690 Z20.828 [id number] Rajesh Hicks Main Office [address] [address] 07/26/2021 13:55:31 07/26/2021 16:14:10 Fatigue 96051709 R53.83 Generally tired regardless of how much she sleeps for the past several months. Seems to worsen during more stressful times like finals, but otherwise very consistent .-blood drawn for CMP, CBC-d, MARTHA, CRP, ESR, EBV/monosp ot, ferritin/i aide binding/ir on, TSH/fT4, vitamin B12/D, lyme, hgb L4p-cmiu f/u with results [id number] Alisha Palomo Main Office [address] [facility] [address] [address] 02/20/2022 13:59:50 02/21/2022 18:44:10 Well child 436474985 Z00.129 Z68.52 Well 16yo with pertinent health concerns as reviewed below.Norm al Hgb in office. Hearing screen passed. Vision 20/30 on L, pt to follow up with optho for full eye exam.PHQ score of 7 (hx of anxiety, see below), negative CRAFFT.Vac cines UTD.Follow up prn and for annual PE. Anxiety 58201628 F41.9 Stable on 125mg zoloft daily. Followed by Dr. Dickerson, psych and Marga Griffin therapist Abdominal pain [id number] R10.9 Concerns of years of lower abdominal pain 1-4x per week, sometimes associated with gas, bloating, and diarrhea/u rge to defecate but not always. Often associated with eating but has woken up with pains as well.Will get labs today for further evaluation and follow up with results. Should consider food allergy testing in the future as well ro r/o. If continued concerns without clear etiology would refer to GI. Pain of le ft hip joint [id number] M25.552 Started a couple of months ago. Not improved with PT. Unclear etiology, currently under eval with ONS Subcutaneous nodule [id number] R22.9 Approx 3mm tender nodule on R upper chest that has been there since patient had trauma to area 3-4 years ago. No breast tenderness or masses noted. No palpable nodes. Reviewed likely residual scar tissue from injury but will get u/s to confirm. [id number] Alisha Palomo Main Office [address] [facility] [address] [place] [address] 02/28/2022 14:17:19 02/28/2022 16:33:29 Abdominal pain [id number] R10.9 Pt presenting for food allergy testing to r/o food allergy as underlying cause of chronic abdominal pain. Patient tested for 34 common food allergens with appropriat e control response and was negative with 0mm wheal for each.Resul ts and interpreta tion reviewed. Based on on concerns of continued abdominal pain without clear etiology, will refer to GI for further evaluation and management . Follow up prn. Mom agrees with plan. [id number] MAGO PRICE MD Main Office [address] [facility] [address] [address] 03/01/2023 15:35:46 03/03/2023 04:00:37 Adult health examination [id number] Z00.00 Healthy 17 y.o adolescent - Hb = 12.3 today- PHQ-9 =5, CRAFFT = 0- Follow in one year, or sooner PRN.- ER/return precaution s discussed. * Vaccines today: None, UTD Anticipato ry guidance (discussed or covered in a handout given to the family)- Confidenti ality of visit documentat ion.- Puberty, sex, abstinence , safe dating.- Avoiding tobacco, drugs, alcohol; and never getting into a car with someone under the influence. - Dealing with stress.- Discipline and role models.- Seat belts, helmets and safety gear, sunscreen- Internet safety, limiting screen time- Importance of daily exercise.- Obesity prevention and adequate calcium.- Good dental hygiene. Anxiety [id number] F41.9 Doing well on Sertraline 120mg qd, also takes Buspirone PRN for panic attacks, still following with Dr. Morales (had a visit with him recently and made no changes to regimen), feels she is doing well with medication s and has no complaints . Mass of chest wall [phone] R22.2 small superficia l density palpable in upper right chest, slightly tender to touch, suspecting it could be scar tissue 2/2 trauma to the area many years ago, patient and Mom do not seem concerned with it today - will continue to monitor for now, recommend trying to apply heat and do gentle massage to try to break down scar tissue. Education about sexually transmitted disease prevention [id number] Z70.8 Patient identifies as homosexual , has never had sex before, discussion about importance of using barrier protection even though she cannot get with another female - verbalized understand ing. Uses oral contraception [id number] Z30.41 Doing well on OCPs, managing menstrual cramps well - continue to monitor Acetabular labrum tear [id number] M24.159 s/p surgery Jun 2022, left hip pain has since resolved, did some PT after surgery [id number] [facility] Office [address] [facility] [address] [place] [address] 03/15/2023 16:05:24 03/16/2023 01:52:59 sickle cell screening done [id number] Z76.89 Health Concerns Section Related Observation LastModified by Organization Detai ls LastModified Time None Recorded Concern Status LastModified by Organization Details LastModified Time None Recorded Advance Directives Directive None Recorded Payers Encounter Date Sequence Insurance Name Policy Number Policy Paet Covered Member ID Pate Member ID Guarantor Name 07/26/2021 1 [facility] [employer] [id number] Quinn Lind [id number] Quinn Lind 02/20/2022 1 [employer] [id number] Quinn Lind [id number] Quinn Lind 02/28/2022 1 [employer] [employer] [id number] Quinn Lind [id number] Quinn Lind 03/15/2023 1 [employer] [employer] [employer] [id number] Quinn Lind [id number] Quinn Lind Notes Date Note Type Note Provider Name and Address Organization Details Recorded Time 07/26/2021 text/html generally tired regardless of how much she sleeps for the past several months. seems to worsen during more stressful times like finals, but otherwise very consistent. Periods with only 1-2 days of cramping and moderate to heavy flow. not noted to snore much. has been on same dose of sertraline for about the past year for anxiety. Rajesh Hicks null, [place] - [facility] 07/26/2021 15:37:44 02/20/2022 text/html Here with mom fo r 16yr PE-concerns of chronic abdominal pain - going on for years - varies in frequency usually about 1-4x per week - will have gas, bloating, sometimes diarrhea and urgent feeling to defecate. Pain is in lower abdomen. 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 All labs on 02/20 were wnl, normal cmp/cbc, neg inflammatory markers and celiac negative Alisha Palomo null, [place] - [facility] 02/28/2022 15:08:35 03/01/2023 text/html 17y well visit - no major concerns todayAnxiety - following with Dr. Morales (Psychiatrist) doing well on Sertraline 120mg daily and Buspirone PRN for panic attacksLeft hip pain - since last visit patient had surgery on her left hip, explains she had a torn labrum which was surgically corrected, no longer having painOn OCPs for severe menstrual cramps, doing well and has proven helpfulChest mass - patient continues to have a mass on her R. 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
[2024-11-04 01:53] LABS: Influenza A PCR NEGATIVE (Negative); Influenza B PCR NEGATIVE (Negative); Resp Syncy Virus RNA Qual PCR NEGATIVE (Negative); SARS COV2 PCR INHOUSE NEGATIVE (Negative)
[2024-11-04 02:57] VITALS: BP 120/80; PULSE 90; RESP 14; O2SAT 95
--- NOTE | 2024-11-04 03:26 | ED_ITS ---
HPI - General Adult General Chief complaint: Allergic Reaction Stated complaint: allergic rxn to afrin nasal spray Time Seen by Provider: 11/04/24 03:23 Source: patient Limitations: no limitations History of Present Illness ED Provider: Ashley Miner PA-C HPI narrative: 19-year-old female presents with potential allergic reaction. Patient states she used [id number] Afrin, she immediately began to cough and wheeze. Her symptoms have improved, she still has a spasm like cough. Denies urticaria, angioedema, swelling of the tongue, sore throat. Related Data Previous Rx's ?Medication ?Instructions ?Recorded albuterol sulfate 90 mcg/actuation 2 puff inhalation Q6H PRN 11/04/24 aerosol inhaler shortness of breath or wheezing #6.7 grams methylprednisolone 4 mg tablets in 4 mg PO QAM #21 ea 11/04/24 a dose pack (Medrol (Rolando)) Allergies Allergy/AdvReac Type Severity Reaction Status Date / Time No Known Allergies Allergy Verified 11/04/24 01:02 Review of Systems Review of Systems: Yes all other systems are reviewed and are negative Constitutional: Constitutional: Denies fatigue and Denies fever(s) ENT: Denies odynophagia, Denies sore throat, Denies throat swelling and Denies tongue swelling Cardiovascular: Cardiovascular: Denies chest pain and Denies dyspnea Respiratory: Respiratory: Reports cough, Denies dyspnea, Denies stridor and Denies wheezing Gastrointestinal: Gastrointestinal: Denies diarrhea, Denies nausea, Denies odynophagia and Denies vomiting Endocrine: Endocrine: Denies fatigue Allergic/Immunologic: Allergic/Immunologic: Denies throat swelling, Denies tongue swelling and Denies wheezing PMF Past Medical History Attestation statement: The following information was validated with the patient. Social History Social History Smoked in Last 30 Days: No Use of substances other than those prescribed or required for medical reasons: No Advance Directives: No Advance Directives Information Provided: Yes Patient : No Physical Exam ED Vital Signs: Vital Signs - 24 hr 11/04/24 01:00 11/04/24 01:04 11/04/24 02:57 Temperature 98.1 F 98.1 F Pulse Rate 87 87 90 Respiratory Rate 21 H 21 H 14 Blood Pressure 127/82 127/82 120/80 Pulse Oximetry 100 100 95 Oxygen Delivery Method Room Air Room Air Room Air BMI result Body Mass Index 27.3 Const Other: Alert well-appearing Orientation/consciousness: patient oriented x3 HENMT Other: No angioedema noted, tongue is of normal size, Resp Other: No stridor, no wheezing, nonlabored respirations, active bronchospasm cough at times Cardio Other: Normal peripheral perfusion Skin Other: Warm dry no rash Neuro General: patient oriented x3, gait normal, no focal motor deficits and CN's II- XI intact bilaterally Psych Other: Cooperative Medical Decision Making Medical Decision Making MDM Narrative: 19-year-old female presents with potential allergic reaction. Patient states she used [id number] Afrin, she immediately began to cough and wheeze. Her symptoms have improved, she still has a spasm like cough. Denies urticaria, angioedema, swelling of the tongue, sore throat. No chronic issues History: Per patient I have considered the following differential diagnoses: Anaphylaxis, adverse drug reaction, allergic reaction Plan: The onset of the patient's symptoms was a 3 hours ago, she has had an appropriate period of observation, there has been no progression of the reaction. In fact, she has not received any medication, her symptoms have improved. She still has residual bronchospasm, we will treat with a steroid taper and send her with albuterol. A viral panel was obtained from triage I have independently reviewed the following tests: Labs: Viral panel negative Lab Data Labs: Lab Results 11/04/24 Range/Units 01:12 Influenza Type A (PCR) NEGATIVE (Negative) Influenza Type B (PCR) NEGATIVE (Negative) RSV RNA Qual (PCR) NEGATIVE (Negative) SARS-CoV-2 RNA (RT-PCR) NEGATIVE (Negative) Discharge Plan Discharge Clinical Impression: Acute bronchospasm Patient Disposition: Home, Self-Care Instructions: Bronchospasm (ED) Additional Instructions: You are being treated for acute bronchospasm, likely triggered by the Afrin that you used. A viral panel was obtained, you were screened for influenza, COVID and RSV, everything was negative. Use the albuterol as needed for the bronchospasm type cough. Complete the steroid taper as directed, you do not require any additional steroid until tomorrow November 05. Follow up with health services as needed. Prescriptions: New albuterol sulfate 90 mcg/actuation HFA aerosol inhaler 2 puff inhalation Q6H PRN (Reason: shortness of breath or wheezing) Qty: 6.7 0RF methylprednisolone [Medrol (Rolando)] 4 mg tablets,dose pack 4 mg PO QAM Qty: 21 0RF Rx Instructions: Take per package instructions Print Language: Pashto
[2024-11-04] MEDS: predniSONE 20 MG TABLET 40 MG PO (03:33)
[2024-11-04] MEDS: Albuterol Sulfate 90 MCG 8 GM INHALER 4 PUFF INHALE (03:38)
[2024-11-04 04:37] VITALS: BP 120/80; PULSE 90; RESP 14; TEMP 36.6; O2SAT 95
== END 2024-11-04 04:39 | disposition home or self-care (01) ==
PROVIDERS: Emergency Provider Emergency Medicine
DX: J98.01 Acute bronchospasm (principal); Z03.818 Encounter for observation for suspected exposure to other biological agents ruled out; R05.9 Cough, unspecified
CPT/HCPCS: 0241U; 93005; 99284

== ENCOUNTER → 2024-11-04 01:19 | Outpatient (BNV) | payer OTHER, SELFPAY | PROVIDERS: Emergency Provider Emergency Medicine; Visit Provider Internal Medicine Cardiovascular Disease | DX: R07.89 Other chest pain (principal) | CPT/HCPCS: 93010 ==